=== PATIENT | female | born 1945 | race Caucasian/White ===

== ENCOUNTER → 2017-06-04 14:00 | Outpatient (CLI) | payer MEDICARE ==
[2016-06-06 05:26] VITALS: BMI 24.5
[~2017-06-04 14:00] MED LIST: ANTIVERT25 MG PO; ASPIRIN EC81 M1 PO; CRANBERRY475 MG PO; DESERYL100 MG PO; LEXAPRO10 MG PO; LEXAPRO20 MG PO; LYRICA100 MG PO; MIRAPEX0.5 MG PO; MULTIPLE VITAMI1 TA1 PO; PLAVIX75 MG PO; POTASSIUM99 M1 PO; RESTORIL15 MG PO; ULTRAM50 MG PO; ZESTORETIC 10/11 TAB PO
== END | disposition home or self-care (01) ==
LOC: D.MRI 14:00
DX: M54.41 Lumbago with sciatica, right side (principal)

== ENCOUNTER → 2017-10-29 13:45 | Outpatient (CLI) | payer MEDICARE ==
[2016-06-06 05:26] VITALS: BMI 24.5
== END | disposition home or self-care (01) ==
LOC: D.MAMMO 09:15
DX: Z12.31 Encounter for screening mammogram for malignant neoplasm of breast (principal)

== ENCOUNTER → 2018-12-06 15:36 | Outpatient (CLI) | payer MEDICARE ==
[2016-06-06 05:26] VITALS: BMI 24.5
== END | disposition home or self-care (01) ==
LOC: D.CT 12-05 08:00
DX: R91.8 Other nonspecific abnormal finding of lung field (principal)

== ENCOUNTER → 2019-02-05 08:54 | Outpatient (CLI) | payer MEDICARE ==
[2016-06-06 05:26] VITALS: BMI 24.5
== END | disposition home or self-care (01) ==
LOC: D.HCCARDIO 08:54
PROVIDERS: ATTEND Internal Medicine Cardiovascular Disease
DX: I20.9 Angina pectoris, unspecified (principal)

== ENCOUNTER → 2019-02-13 06:34 | Outpatient (CLI) | payer MEDICARE ==
[~2019-02-13] VITALS: Ht 172.7 cm; Wt 84.1 kg
--- NOTE | ~2019-02-13 | HEMODYNAMI ---
PATIENT:JOSE NEGRO MEDICAL RECORD: [id number] : 47 LOCATION:[facility] ADMISSION DATE: 02/13/19 Generatedon:02/13/20199:25 Patient name: JOSE NEGRO Patient #: [id number] SSN: : 1945 Date of study: 02/13/2019 Page: Of Hemodynamic Procedure Report Patient Data Patient Demographics Procedure consent was obtained First Name: JOSE Gender: Female Last Name: MARKY : 1945 [facility] Initial: KEHINDE Age: 73 year(s) Patient #: [id number] Race: Unknown Additional ID: [id number] Contact details Address: [address] [place] [address] State: [place] City: [place] Zip code: [address] Past Medical History Allergies: No known allergies Admission Admission Data Admission Date: 02/13/2019 Admission Time: 6:34 Procedure Procedure Types Cath Procedure Diagnostic Procedure LHC LHC w/Coronaries Sedation Charges Moderate Sedation up to 15 minutes Peripheral Cath Diagnostic Procedure Abd/Extremity Aortagram Extremities Right Lower Ext Arterio Procedure Description Procedure Date Procedure Date: 02/13/2019 Procedure Start Time: 8:54 Procedure End Time: 9:25 Procedure Staff Name Function Favian Santoro MD Performing Physician Bridgett Mena RT Monitor Qiana Lawson RN Nurse Pennie Rivera RT Scrub Procedure Data Cath Procedure Fluoroscopy Diagnostic fluoroscopy Total fluoroscopy Time: 5.1 time: 5.1 min min Diagnostic fluoroscopy Total fluoroscopy dose: 666 dose: 666 mGy mGy Contrast Material Contrast Material Type Amount (ml) Isovue 300 70 Entry Location Entry Primary Successful Side Size Upsize Upsize Entry Closure Zambrano ccessful Closure Location (Fr) 1 (Fr) 2 (Fr) Remarks Device Remarks Femoral Right 5 Fr Manual vein Compression Femoral Right 5 Fr Exoseal artery Estimated blood loss: 5 ml Diagnostic catheters Device Type Used For End Catheter Placement MULTIPACK JL 4.0 5Fr Left Coronary catheter Angiography MULTIPACK 3DRC 5Fr Right Coronary catheter Angiography MULTIPACK Pigtail 5 Fr LV Angiography catheter MULTIPACK Pigtail 5 Fr Abdominal catheter aortogram Procedure Complications No complications Procedure Medications Medication Administration Route Dosage Oxygen etCO2 Nasal cannula 2 l/min Lidocaine 2% added to field 20 Heparin Flush Bag added to field 2 bags (1000units/500ml NS) 0.9% NaCl I.V. 100 ml/hr Versed I.V. 1 mg Fentanyl I.V. 50 mcg 0.9% NaCl I.V. bolus 250 ml 0.9% NaCl I.V. bolus 250 ml Hemodynamics Rest Heart Rate: 60 (bpm) Pressure Samples Time Site Value (mmHg) Purpose Heart Use Rate(bpm) 9:13 LV 81/7,16 EDP 69 Gradients Valve Time Site Site Mean SEP/DFP Peak To Heart Use 1 2 (mmHg) (sec/min) Peak Rate (mmHg) (bpm) Aortic 9:13 LV AO 59 Snapshots Pre Cath Intra NCS Post Cath Vital Signs Time Heart Resp SPO2 etCO2 NIBP Rhythm Pain Sedation Rate (ipm) (%) (mmHg) (mmHg) Status Level (bpm) 8:45:48 66 18 98 36.1 107/61(87) NSR 0 (11) 10(A) , No pain 8:49:58 60 16 95 26.3 92/48(64) NSR 0 (11) 10(A) , No pain 8:54:03 57 14 94 33.1 79/46(56) NSR 0 (11) 10(A) , No pain 8:58:05 55 14 94 27.1 70/35(57) NSR 0 (11) 9(A) , No pain 9:02:03 57 14 96 18.8 75/42(53) NSR 0 (11) 9(A) , No pain 9:06:02 55 14 98 19.6 82/44(65) NSR 0 (11) 9(A) , No pain 9:10:04 56 13 97 19.5 80/44(59) NSR 0 (11) 9(A) , No pain 9:14:06 57 14 94 30.1 79/39(57) NSR 0 (11) 9(A) , No pain 9:18:07 58 13 95 30.1 76/40(54) NSR 0 (11) 10(A) , No pain 9:22:05 60 14 95 30.8 80/48(66) NSR 0 (11) 10(A) , No pain Medications Time Medication Route Dose Verified Delivered Reason Notes Eff ectiveness by by 8:45:33 Oxygen etCO2 2 Favian Buffie used for Nasal l/min Yvan Lawson RN procedure cannula 8:45:39 Lidocaine 2% added 20ml Favian Favian for local to vial Yvan Santoro MD anesthetic field 8:45:45 Heparin Flush added 2 Favian Favian used for Bag to bags Yvan Santoro MD procedure (1000units/500ml field NS) 8:45:55 0.9% NaCl I.V. 100 Favian Buffie Per ml/hr Yvan Lawson RN physician 8:50:07 0.9% NaCl I.V. 250 Favian Buffie For bolus ml Yvan Lawson RN hypotension 8:51:55 Versed I.V. 1 mg Favian Buffie for Yvan Lawson RN sedation 8:52:01 Fentanyl I.V. 50 Favian Buffie for mcg Yvan Lawson RN sedation 9:10:18 0.9% NaCl I.V. 250 Favian Buffie For bolus ml Yvan Lawson RN hypotension Procedure Log Time Note 8:03:33 Time tracking: Regular hours (M-F 7:00 - 5:00) 8:03:41 Plan of Care:Hemodynamics will remain stable., Cardiac rhythm will remain stable., Comfort level will be maintained., Respiratory function will remain adequate., Patient/ family verbilizes understanding of procedure., Procedure tolerated without complication., Recovers from procedure without complications.. 8:27:30 Qiana Lawson RN sent for patient. Start room use. 8:33:51 Patient received from Pre/Post Procedure Room to CCL 2 Alert and oriented. Tansferred to table in Supine position. 8:33:52 Warm blankets applied, and pieter hugger turned on for patient comfort. 8:33:53 Correct patient and procedure confirmed by team. 8:33:54 Signed procedure consent form obtained from patient. 8:33:54 ECG and BP/O2 sat monitors applied to patient. 8:33:55 Full Disclosure recording started 8:40:26 Vital chart was started 8:40:29 Rhythm: sinus rhythm 8:40:43 H&P Date Dictated: 01/29/2019 Within 30 days and on chart., H&P Addendum completed by physician on day of procedure. (MUST COMPLETE FOR ALL OUTPATIENTS). 8:40:45 Pre-procedure instructions explained to patient. 8:40:45 Pre-op teaching completed and patient verbalized understanding. 8:40:48 Family in patients room. 8:40:49 Patient NPO since Midnight. 8:40:55 Patient allergic to No known allergies 8:40:57 Is the patient allergic to Iodine/contrast media? No. 8:40:58 Is patient on blood thinner?Yes 8:41:01 ACC The patient was administered the following blood thiners within the last 24 hours: ACCPlavix 8:41:03 Patient diabetic? No. 8:41:10 Previous problem with sedation/anesthesia? No ? 8:41:11 Snore? Yes 8:41:13 Sleep apnea? No 8:41:14 Deviated septum? No 8:41:14 Opens mouth fully? Yes 8:41:15 Sticks out tongue? Yes 8:41:19 Airway obstruction? Yes COPD 8:41:22 Dentures? Yes OUT 8:41:33 Pre procedure: right dorsailis pedis pulse 1+ Palpable, but thready & weak; easily obliterated 8:41:46 Pre procedure: right radial pulse 1+ Palpable, but thready & weak; easily obliterated 8:41:53 Patient pain scale 0/10 ?. 8:41:58 IV patent on arrival in left forearm with 0.9% NaCl at KVO. 8:42:00 Lab results completed and on chart. 8:42:03 Right groin area was prepped with chlora-prep and draped in sterile fashion 8:42:04 Alarms reviewed by R. N. 8:42:04 Sharps counted by scrub and verified by R.N. 8:42:09 Use device set Femoral Dx 8:42:10 ACIST Syringe (28911) opened to sterile field. 8:42:11 Bag Decanter () opened to sterile field. 8:42:11 Medline Cath Pack ([id number]) opened to sterile field. 8:42:12 DIAGNOSTIC WIRE .035 260cm J wire ([id number]) opened to sterile field. 8:42:13 ACIST Hand Control (59831) opened to sterile field. 8:42:13 ACIST Manifold (28963) opened to sterile field. 8:42:14 DIAGNOSTIC Multipack 5Fr catheter set ([id number]) opened to sterile field. 8:42:15 Tegaderm 4 x 4 (1626W) opened to sterile field. 8:42:16 SHEATH 5FR [place] ([id number]) opened to sterile field. 8:44:02 Baseline sample Acquired. 8:45:33 Oxygen 2 l/min etCO2 Nasal cannula was administered by Qiana Lawson RN; used for procedure; 8:45:39 Lidocaine 2% 20ml vial added to field was administered by Favian Santoro MD; for local anesthetic; 8:45:45 Heparin Flush Bag (1000units/500ml NS) 2 bags added to field was administered by Favian Santoro MD; used for procedure; 8:45:55 0.9% NaCl 100 ml/hr I.V. was administered by Qiana Lawson RN; Per physician; 8:49:28 Final Timeout: patient, procedure, and site verified with staff and physician. All members of the team are in agreement. 8:49:30 Right groin site verified by team. 8:49:33 Maximum allowable Isovue 300 dose 300ml. Physician notified. (300ml for normal creatinines. For patients with creatinine of 1.7 or higher multiply weight(kg) x 5 divided by creatinine.) 8:49:38 Fire Safety Assessment: A--An alcohol-based skin anteseptic being used preoperatively., C--Open oxygen or nitrous oxide is being used., D--An ESU, laser, or fiber-optic light is being used. 8:49:42 Physical assessment completed. ASA score P 2 - A patient with mild systemic disease as per Favian Santoro MD. 8:49:46 Sedation plan: IV Moderate Sedation Medication:Versed, Fentanyl 8:50:07 0.9% NaCl 250 ml I.V. bolus was administered by Qiana Lawson RN; For hypotension; 8:51:13 Zero performed for pressure channel P1 8:51:55 Versed 1 mg I.V. was administered by Qiana Lawson RN; for sedation; 8:52:01 Fentanyl 50 mcg I.V. was administered by Qiana Lawson RN; for sedation; 8:54:21 Procedure started. 8:54:24 Local anesthetic to right femoral artery with Lidocaine 2% by Favian Santoro MD.INITIAL ACCESS ONLY 8:58:18 A 5 Fr sheath was inserted into the Right Femoral vein 9:03:54 MICROPUNCTURE 4FR Cook ([id number]) opened to sterile field. 9:05:33 Left groin area was prepped with chlora-prep and draped in sterile fashion 9:06:21 Access obtained with 4Fr micropunture. 9:06:52 A 5 Fr sheath was inserted into the Right Femoral artery 9:07:38 A MULTIPACK JL 4.0 5Fr catheter was advanced over the wire and used for Left Coronary Angiography. 9:09:48 Catheter removed. 9:09:59 A MULTIPACK 3DRC 5Fr catheter was advanced over the wire and used for Right Coronary Angiography. 9:10:18 0.9% NaCl 250 ml I.V. bolus was administered by Qiana Lawson RN; For hypotension; 9:11:32 Catheter removed. 9:11:52 A MULTIPACK Pigtail 5 Fr catheter was advanced over the wire and used for LV Angiography. 9:13:08 LV gram done using MCGARRY 9:13:14 Injector settings: Ml/sec: 10, Volume: 20, 9:13:16 LV hemodynamics recorded. 9:13:23 EF : 55 % 9:13:54 A MULTIPACK Pigtail 5 Fr catheter was advanced over the wire and used for Abdominal aortogram. 9:18:03 Catheter removed. 9:18:19 Sheath removed intact; hemostasis achieved with Exoseal to the Right Femoral artery. 9:18:27 Sheath removed intact; hemostasis achieved with Manual Compression to the Right Femoral vein. 9:18:31 Procedure ended.(Physican Out) 9:18:45 Fluoroscopy time 05.10 minutes. 9:18:48 Fluoroscopy dose: 666 mGy 9:18:48 Flurop Dose total: 666 9:18:58 Contrast amount:Isovue 300 70ml. 9:19:00 Sharps counted by scrub and verified by R.N. 9:19:01 Insertion/operative site no bleeding no hematoma. 9:19:05 Post-op/insertion site Right Femoral artery dressed using a 4 x 4 and Tegaderm. 9:19:08 Post right femoral artery:stable, clean and dry 9:19:09 Post Procedure Pulses reassessed and unchanged 9:19:16 Post-procedure physical assessment completed. ASA score P 2 - A patient with mild systemic disease as per Favian Santoro MD. 9:19:18 Post procedure rhythm: unchanged. 9:19:21 Estimated blood loss: 5 ml 9:19:23 Post procedure instruction explained to patient.Patient verbalizes understanding. 9:19:23 Patient needs reinforcement of post procedure teaching. 9:19:54 Procedure type changed to Cath procedure, Diagnostic procedure, LHC, LHC w/Coronaries, Sedation Charges, Moderate Sedation up to 15 minutes, Peripheral Cath Diagnostic Procedure, Abd/Extremity, Aortagram, Extremities, Right Lower Ext Arterio 9:20:08 Procedure Complication : No complications 9:20:16 See physician's report for complete and final results. 9:20:40 EXOSEAL 5Fr (EX500) opened to sterile field. 9:22:48 Procedure and supply charges have been captured, reviewed, submitted and are correct. 9:24:59 Vital chart was stopped 9:25:01 Report given to Pre/Post Procedure Room. 9:25:03 Patient transfered to Pre/Post Procedure Room with Stretcher. 9:25:10 Procedure ended. 9:25:10 Full Disclosure recording stopped 9:25:14 End room use (Document Last) Device Usage Item Name Manufacture Quantity Catalog Hospital Part Current Minimal Lot# / Number Charge Number Stock Stock Serial# Code ACIST Syringe Acist 1 [id number] [id number] 228491 [id number] 20 (76814) Medical Systems Inc Bag Decanter Microtek 1 2001S 653602 03877 404880 5 () Medical Inc. Medline Cath Medline 1 [id number] 278206 68390 744963 5 Pack ([id number]) DIAGNOSTIC St Ashish 1 696408 171462 250785 258636 30 WIRE .035 260cm J wire (358515) ACIST Hand Acist 1 83115 055009 333679 448625 5 Control Medical (14432) Systems Inc ACIST Acist 1 89141 042829 090844 099662 5 Manifold Medical (87954) Systems Inc DIAGNOSTIC Cardinal 1 [id number] 939689 40228 058323 30 Multipack 5Fr Health catheter set (DR3574) Tegaderm 4 x 3M 1 1626W 258380 839606 899674 5 4 (1626W) SHEATH 5FR Terumo 1 [id number] 339692 823380 498658 5 [place] (WGB891) MICROPUNCTURE [facility] 1 [id number] 714146 802760 151194 5 4FR Cook (P75339) MULTIPACK JL Cardinal 1 664438 5 4.0 5Fr Health catheter MULTIPACK Cardinal 1 897648 5 3DRC 5Fr Health catheter MULTIPACK Cardinal 1 908508 5 Pigtail 5 Fr Health catheter EXOSEAL 5Fr Cardinal 1 EX500 616575 855273 153426 10 (EX500) Health Signature Audit Ariel Stage Time Signature Unsigned Intra-Procedure 02/13/2019 Bridgett 9:25:27 AM Counts RT(R) Signatures Monitor : Bridgett Signature : Counts RT Date : Time : [place] [id number] [place] [address]
[~2019-02-13 06:34] MED LIST changes: +BACLOFEN10 MG PO; +BREO ELLIPTA 21 EACH; +FUROSEMIDE20 MG PO
[2019-02-13 07:26] VITALS: BP 103/59; Ht 172.7 cm; Wt 84.1 kg
[2019-02-13 07:41] LABS: BASOPHILS 0.2 % (0-2); EOSINOPHILS 2.3 % (0-7); HEMATOCRIT 40.5 % (36.0-48.0); HEMOGLOBIN 12.9 g/dL (12-16); IMMATURE GRANULOCYTES 0.6 % (0-5); LYMPHOCYTES 13.4 % (15-50); MCH 28.4 pg (26.0-34.0); MCHC 31.9 g/dL (31.0-37.0); MEAN PLATELET VOLUME 10.2 fL (7.4-10.4); MONOCYTES 5.2 % (2-11); NEUTROPHILS 78.3 % (40-80); PLATELET COUNT 206 10x3/uL (130-400); RBC 4.55 10x6/uL (4.00-5.40); RDW 16.9 % (11.5-14.5); WBC 6.5 10x3/uL (4.8-10.8)
[2019-02-13 07:55] LABS: ANION GAP 13.7 mmol/L (8-16); CALCIUM 9.1 mg/dL (8.5-10.1); CARBON DIOXIDE 28.1 mmol/L (21.0-32.0); CREATININE - SERUM 1.3 mg/dL (0.6-1.3); POTASSIUM - SERUM 3.8 mmol/L (3.5-5.1)
--- NOTE | 2019-02-13 09:42 | NUR ---
0930 RECIEVED TO ROOM VIA STRETCHER FROM INSPECTOR E[employer] WITH 5 FR EXOSEAL R/GROIN CDI. PATIENT CONNECTED TO MONITOR FOR OBSERVATION WITH HR 61 BP 93/45 FLUIDS OPENED TO GRAVITY 0945 R/GROIN REMAINS CDI WITH NO BLEEDING OR HEMATOMA NOTED. PATIENT RESTIGN QUIETLY NO DISTRESS NOTED.
--- NOTE | 2019-02-13 10:04 | NUR ---
PATIENT RESPONDS TO VERBAL WITH CHEST PAIN DENIED. BP 102/52 HR 55 O2 AT 2 LITERS NASAL. INSTRUCTED PATIENT TO KEEP HEAD FLAT ON PILLOW WITH RLE STRIAGHT.
--- NOTE | 2019-02-13 10:20 | NUR ---
PATIENT RESTING QUIETLY WITH NO DISTRESS. 5 FR EXOSEAL R/GROIN IS CDI WITH VSS. CALL LIGHT IS IN REACH WITH DAUGHTER AT BEDSIDE
--- NOTE | 2019-02-13 10:34 | NUR ---
5 FR EXOSEAL R/GROIN IS CDI WITH NO BLEEDING OR HEMATOMA NOTED. PATIENT TOLERATING PO FLUIDS WITH NAUSEA DENIED. CALL LIGHT IS IN REACH WILL MONITOR
--- NOTE | 2019-02-13 10:50 | NUR ---
PATIENT CONTINUES TO REST WITH NO DISTRESS NOTED. 5 FR EXOSEAL TO R/GROIN IS CDI WITH AREA SOFT TO TOUCH
--- NOTE | 2019-02-13 11:18 | NUR ---
REPOSITIONED TO [facility] UP 20 FOR COMFORT. R/GROIN REMAINS CDI WITH NO BLEEDING NOTED.
--- NOTE | 2019-02-13 11:39 | NUR ---
HOB UP 30 WITH R/GROIN CDI NO BLEEDING OR HEMATOMA. PATIENT DROWSY BUT ORIENTED X 3 TOLERATING SANDWICH WITH NAUSEA DENIED
--- NOTE | 2019-02-13 12:06 | NUR ---
PIV REMOVED WITH DRESSING APPLIED. VERBAL AND WRITTEN DISCHARGE GONE OVER WITH PATIENT AND FAMILY. PATIENT DENIED PAIN OR NEEDS.UP TO GET DRESSED FOR DISCHARGE HOME
--- NOTE | 2019-02-13 12:08 | NUR ---
PATIENT LEFT VIA WC TO PARKING FOR TRANSPORT HOME NO DISTRESS NOTED.
== END | disposition home or self-care (01) ==
LOC: D.CATH 06:34
PROVIDERS: ATTEND Internal Medicine Cardiovascular Disease
DX: I25.119 Atherosclerotic heart disease of native coronary artery with unspecified angina pectoris (principal); J44.9 Chronic obstructive pulmonary disease, unspecified; Z01.812 Encounter for preprocedural laboratory examination

== ENCOUNTER 2019-02-20 12:58 | Inpatient (IN) | payer MEDICARE ==
[~2019-02-20] VITALS: Ht 172.7 cm; Wt 86.9 kg
--- NOTE | ~2019-02-20 | HEMODYNAMI ---
PATIENT:JOSE NEGRO MEDICAL RECORD: [id number] : 47 LOCATION:[facility] D.2118 ADMISSION DATE: 02/20/19 Generatedon:02/21/201914:39 Patient name: JOSE NEGRO Patient #: [id number] SSN: : 1945 Date of study: 02/21/2019 Page: Of Hemodynamic Procedure Report Patient Data Patient Demographics Procedure consent was obtained First Name: JOSE Gender: Female Last Name: MARKY : 1945 [facility] Initial: KEHINDE Age: 73 year(s) Patient #: [id number] Race: Unknown Additional ID: [id number] Contact details Address: [address] [place] [address] State: [place] City: [place] Zip code: [address] Past Medical History Allergies: No known allergies Admission Admission Data Admission Date: 02/20/2019 Admission Time: 12:58 Room #: D2118 Procedure Procedure Types Cath Procedure Diagnostic Procedure LHC LH w/Coronaries PCI Procedure Coronary Stent Coronary Stent Initial Procedure Description Procedure Date Procedure Date: 02/21/2019 Procedure Start Time: 14:07 Procedure End Time: 14:29 Procedure Staff Name Function Favian Santoro MD Performing Physician Joe Dey RT Monitor Andrei Armenta RN Nurse Quita Jeffries RT Scrub Procedure Data Cath Procedure Fluoroscopy Diagnostic fluoroscopy Total fluoroscopy Time: 5.3 time: 5.3 min min Diagnostic fluoroscopy Total fluoroscopy dose: 391 dose: 391 mGy mGy Contrast Material Contrast Material Type Amount (ml) Isovue 300 68 Entry Location Entry Primary Successful Side Size Upsize Upsize Entry Closure Succes sful Closure Location (Fr) 1 (Fr) 2 (Fr) Remarks Device Remarks Femoral Right 6 Fr Exoseal artery Short Estimated blood loss: 10 ml Procedure Complications No complications Procedure Medications Medication Administration Route Dosage Oxygen etCO2 Nasal cannula 2 l/min Heparin Flush Bag added to field 2 bags (1000units/500ml NS) 0.9% NaCl I.V. 100 ml/hr Lidocaine 2% added to field 20 Fentanyl I.V. 50 mcg Versed I.V. 1 mg Fentanyl I.V. 50 mcg Versed I.V. 1 mg Heparin Bolus I.V. 8500 units Nitroglycerin IC/IA I.C. 100 mcg Hemodynamics Rest Heart Rate: 75 (bpm) Pressure Samples Time Site Value (mmHg) Purpose Heart Use Rate(bpm) 14:11 AO 118/34(62) Snapshot 73 14:15 AO 88/45(63) Snapshot 75 14:23 AO 104/52(73) Snapshot 75 Snapshots Pre Cath Intra NCS Post Cath Vital Signs Time Heart Resp SPO2 etCO2 NIBP Rhythm Pain Sedation Rate (ipm) (%) (mmHg) (mmHg) Status Level (bpm) 13:55:48 75 16 95 0 139/65(91) NSR 0 (11) 10(A) , No pain 14:00:08 71 17 95 0 104/58(76) NSR 0 (11) 10(A) , No pain 14:04:22 70 16 94 0 95/64(82) NSR 0 (11) 9(A) , No pain 14:08:34 71 17 93 0 99/59(82) NSR 0 (11) 9(A) , No pain 14:12:48 72 17 94 0 96/52(68) NSR 0 (11) 9(A) , No pain 14:17:00 73 17 94 0 74/50(68) NSR 0 (11) 9(A) , No pain 14:21:55 72 16 95 0 96/51(76) NSR 0 (11) 9(A) , No pain 14:26:09 77 16 94 0 80/45(60) NSR 0 (11) 9(A) , No pain 14:30:18 78 16 95 0 99/58(78) NSR 0 (11) 9(A) , No pain Medications Time Medication Route Dose Verified Delivered Reason Notes Effectiveness by by 13:53:29 Oxygen etCO2 2 Favian Forbes Per physician Nasal l/min Yvan Armenta RN cannula 13:53:38 Heparin Flush added 2 Favian Forbes used for Bag to bags Yvan Armenta psychic reader (1000units/500ml field NS) 13:53:51 0.9% NaCl I.V. 100 Favian Andrei Per physician ml/hr Yvan Armenta RN 13:54:06 Lidocaine 2% added 20ml Favian Andrei used for to vial Yvan Armenta RN procedure field 14:01:34 Fentanyl I.V. 50 Favian Andrei for sedation mcg Yvan Armenta RN 14:01:40 Versed I.V. 1 mg Favian Andrei for sedation Yvan Armenta RN 14:06:22 Fentanyl I.V. 50 Favian Andrei for sedation mcg Yvan Armenta RN 14:06:25 Versed I.V. 1 mg Favian Andrei for sedation Yvan Armenta RN 14:11:55 Heparin Bolus I.V. 8500 Favian Andrei for units Yvan Armenta RN anticoagulation 14:25:12 Nitroglycerin I.C. 100 Favian Favian for IC/IA mcg Yvan Santoro MD vasodilation Procedure Log Time Note 13:30:56 Joe Dey RT(R) sent for patient. Start room use. 13:43:57 Time tracking: Regular hours (M-F 7:00 - 5:00) 13:44:01 Plan of Care:Hemodynamics will remain stable., Cardiac rhythm will remain stable., Comfort level will be maintained., Respiratory function will remain adequate., Patient/ family verbilizes understanding of procedure., Procedure tolerated without complication., Recovers from procedure without complications.. 13:49:37 Patient received from PCU to CCL 3 Alert and oriented. Tansferred to table in Supine position. 13:49:39 Correct patient and procedure confirmed by team. 13:49:39 Warm blankets applied, and pieter hugger turned on for patient comfort. 13:49:41 Signed procedure consent form obtained from patient. 13:49:44 ECG and BP/O2 sat monitors applied to patient. 13:50:39 Vital chart was started 13:53:29 Oxygen 2 l/min etCO2 Nasal cannula was administered by Andrei Armenta RN; Per physician; 13:53:38 Heparin Flush Bag (1000units/500ml NS) 2 bags added to field was administered by Andrei Armenta RN; used for procedure; 13:53:51 0.9% NaCl 100 ml/hr I.V. was administered by Andrei Armenta RN; Per physician; 13:54:06 Lidocaine 2% 20ml vial added to field was administered by Andrei Armenta RN; used for procedure; 13:57:06 Baseline sample Acquired. 13:57:09 Rhythm: sinus rhythm 13:57:11 Full Disclosure recording started 13:57:41 H&P Date Dictated: 02/20/2019 Within 30 days and on chart.. 13:57:42 Pre-procedure instructions explained to patient. 13:57:43 Pre-op teaching completed and patient verbalized understanding. 13:57:45 Family in patients room. 13:57:46 Patient NPO since Midnight. 13:57:48 Is the patient allergic to Iodine/contrast media? No. 13:57:49 Is patient on blood thinner?Yes 13:57:52 ACC The patient was administered the following blood thiners within the last 24 hours: ACCPlavix 13:59:36 Patient diabetic? No. 13:59:38 Previous problem with sedation/anesthesia? No ? 13:59:39 Snore? Yes 13:59:41 Sleep apnea? No 13:59:41 Deviated septum? No 13:59:42 Opens mouth fully? Yes 13:59:44 Sticks out tongue? Yes 13:59:47 Airway obstruction? Yes COPD 14:00:08 Dentures? No IN 14:00:24 Pre procedure: right dorsailis pedis pulse 1+ Palpable, but thready & weak; easily obliterated 14:00:30 Patient pain scale 0/10 ?. 14:00:44 IV patent on arrival in left forearm with 0.9% NaCl at O. 14:00:46 Lab results completed and on chart. 14:00:49 Right groin area was prepped with chlora-prep and draped in sterile fashion 14:00:51 Alarms reviewed by R. N. 14:00:51 Sharps counted by scrub and verified by R.N. 14:00:53 --------ALL STOP TIME OUT------ 14:00:53 Final Timeout: patient, procedure, and site verified with staff and physician. All members of the team are in agreement. 14:00:55 Right groin site verified by team. 14:00:59 Maximum allowable Isovue 300 dose 300ml. Physician notified. (300ml for normal creatinines. For patients with creatinine of 1.7 or higher multiply weight(kg) x 5 divided by creatinine.) 14:01:02 Fire Safety Assessment: A--An alcohol-based skin anteseptic being used preoperatively., C--Open oxygen or nitrous oxide is being used., D--An ESU, laser, or fiber-optic light is being used. 14:01:06 Physical assessment completed. ASA score P 2 - A patient with mild systemic disease as per Favian Santoro MD. 14:01:09 Sedation plan: IV Moderate Sedation Medication:Versed, Fentanyl 14:01:34 Fentanyl 50 mcg I.V. was administered by Andrei Armenta RN; for sedation; 14:01:40 Versed 1 mg I.V. was administered by Andrei Armenta RN; for sedation; 14:02:03 Use device set Radial Dx or PCI 14:02:05 Use device set SANTORO PCI 14:02:12 ACIST Syringe (71470) opened to sterile field. 14:02:13 Medline Cath Pack ([id number]) opened to sterile field. 14:02:14 Bag Decanter (2002S) opened to sterile field. 14:02:15 ACIST Hand Control (92832) opened to sterile field. 14:02:16 ACIST Manifold (60030) opened to sterile field. 14:02:16 Tegaderm 4 x 4 (1626W) opened to sterile field. 14:02:18 DIAGNOSTIC WIRE .035 260cm J wire (345153) opened to sterile field. 14:02:21 TUBING High Pressure Extension Tubing (Yvan) (IL3457M) opened to sterile field. 14:02:23 INFLATOR Merit BasixCompak (JX6375) opened to sterile field. 14:02:32 WHISPER 300cm guide wire ([id number]) opened to sterile field. 14:02:34 SHEATH 6FR Rupert (NKP376) opened to sterile field. 14:03:01 GUIDE 6FR EBU 3.5 catheter ([id number]) opened to sterile field. 14:06:22 Fentanyl 50 mcg I.V. was administered by Andrei Armenta RN; for sedation; 14:06:25 Versed 1 mg I.V. was administered by Andrei Armenta RN; for sedation; 14:07:00 Procedure started. 14:07:03 Local anesthetic to right femoral artery with Lidocaine 2% by Favian Santoro MD.INITIAL ACCESS ONLY 14:09:34 A 6 Fr Short sheath was inserted into the Right Femoral artery 14:10:08 6 Fr EBU 3.5 guide catheter was inserted over the wire 14:11:50 Whisper wire advanced. 14:11:55 Heparin Bolus 8500 units I.V. was administered by Andrei Armenta RN; for anticoagulation; 14:15:17 Wire advanced across lesion. 14:16:40 Inflate balloon Inflation number: 1 A EUPHORA 2.0 x 15 Balloon ([id number]) was prepped and advanced across the Mid LAD, then inflated to 14 ARLEN for 0:10 (min:sec). 14:19:42 Balloon removed over the wire. 14:22:07 Place stent Inflation Number: 2 A MARYSE RX 3.0 x 15 stent ([id number]) was prepped and advanced across the Mid LAD. The stent was deployed at 14 ARLEN for 0:10 (min:sec). 14:23:32 Stent catheter was removed intact over wire. 14:25:12 Nitroglycerin IC/IA 100 mcg I.C. was administered by Favian Santoro MD; for vasodilation; 14:26:28 Wire removed. 14:26:29 Guide catheter removed. 14:26:32 EXOSEAL 6Fr (EX600) opened to sterile field. 14:26:54 Sheath removed intact; hemostasis achieved with Exoseal to the Right Femoral artery. 14:26:56 Procedure ended.(Physican Out) 14:27:11 Fluoroscopy time 05.30 minutes. 14:27:19 Flurop Dose total: 391 14:27:19 Fluoroscopy dose: 391 mGy 14:27:23 Contrast amount:Isovue 300 68ml. 14:27:25 Sharps counted by scrub and verified by R.N. 14:27:26 Insertion/operative site no bleeding no hematoma. 14:27:30 Post-op/insertion site Right Femoral artery dressed using a 4 x 4 and Tegaderm. 14:27:34 Post Procedure Pulses reassessed and unchanged 14:27:39 Post-procedure physical assessment completed. ASA score P 2 - A patient with mild systemic disease as per Favian Santoro MD. 14:27:42 Post procedure rhythm: unchanged. 14:27:45 Estimated blood loss: 10 ml 14:29:05 Post procedure instruction explained to patient.Patient verbalizes understanding. 14:29:05 Patient needs reinforcement of post procedure teaching. 14:29:11 Procedure type changed to Cath procedure, Diagnostic procedure, LHC, LHC w/Coronaries, PCI procedure, Coronary Stent, Coronary Stent Initial 14:29:12 Procedure and supply charges have been captured, reviewed, submitted and are correct. 14:29:15 Procedure Complication : No complications 14:29:18 Vital chart was stopped 14:29:19 See physician's report for complete and final results. 14:29:26 Report given to PCU. 14:29:29 Patient transfered to PCU with Bed. 14:29:31 Procedure ended. 14:29:31 Full Disclosure recording stopped 14:30:44 End room use (Document Last) 14:38:14 Pt began to develop hematoma right groin. Femstop applied at 140. 14:38:16 FEMSTOP Gold (H64299) opened to sterile field. Intervention Summary Intervention Notes Time ActionType Lesion and Equipment Used Action# Pressure Duration Attributes 14:16:40 Inflate Mid LAD EUPHORA 2.0 x 1 14 00:10 balloon 15 Balloon ([id number]) 14:22:07 Place stent Mid LAD MARYSE RX 3.0 x 2 14 00:10 15 stent ([id number]) Device Usage Item Name Manufacture Quantity Catalog Hospital Part [facility] Lot# / Number Charge Number Stock Stock Serial# Code ACIST Syringe Acist 1 27906 183895 678880 143917 20 (29534) Medical Systems Inc Medline Cath Medline 1 [id number] 243930 23940 532161 5 Pack ([id number]) Bag Decanter Microtek 1 2001S 543946 95792 343999 5 (2001S) Medical Inc. ACIST Hand Acist 1 08678 756657 168012 171579 5 Control Medical (15064) Systems Inc ACIST Manifold Acist 1 16763 178992 881837 120773 5 (68421) Medical Systems Inc Tegaderm 4 x 4 3M 1 1626W 774270 208958 834476 5 (1626W) DIAGNOSTIC St Ashish 1 091385 038831 592030 332690 30 WIRE .035 260cm J wire (649069) TUBING High Merit 1 [id number] 464796 92581 475107 10 Pressure Medical Extension Tubing (Santoro) (TF6830L) INFLATOR Merit Merit 1 YC0022 737413 927806 639950 15 BasixCompak Medical (QO7017) WHISPER 300cm Miller 1 [id number] 060541 531954 666685 5 guide wire Vascular ([id number]) SHEATH 6FR Terumo 1 THP376 257995 427662 066271 40 Rupert (SHV460) EUPHORA 2.0 x Medtronic 1 [id number] 323036 028896 214590 5 [id number] 15 Balloon ([id number]) MARYSE RX 3.0 x Medtronic 1 [id number] 095213 4403629 751409 5 [id number] 15 stent ([id number]) EXOSEAL 6Fr Cardinal 1 EX600 212751 859991 013187 10 (EX600) Health GUIDE 6FR EBU Medtronic 1 [id number] 916822 21196 600694 3 3.5 catheter ([id number]) FEMSTOP Gold St Ashish 1 K51572 972634 792590 492695 5 ([id number]) Signature Audit [place] Stage Time Signature Unsigned Intra-Procedure 02/21/2019 Joe Dey 2:39:06 PM RT(R) Signatures Monitor : Joe Dey RT Signature : Date : Time : [facility] [address] [place] [address]
--- NOTE | 2019-02-20 13:41 | NUR ---
RECEIVED PT FROM ADMISSIONS TO ROOM 2118 VIA W/C WITH ADMISSION STAFF AAOX4 RESP UNLABORED DENIES ANY DISCOMFORT AT THIS TIME WILL CONTINUE TO MONITOR
[2019-02-20 14:30] VITALS: BMI 27.4
[2019-02-20 16:09] LABS: BASOPHILS 0.2 % (0-2); EOSINOPHILS 2.6 % (0-7); HEMATOCRIT 37.6 % (36.0-48.0); HEMOGLOBIN 11.9 g/dL (12-16); IMMATURE GRANULOCYTES 0.4 % (0-5); LYMPHOCYTES 14.5 % (15-50); MCH 28.1 pg (26.0-34.0); MCHC 31.6 g/dL (31.0-37.0); MCV 88.9 fL (80.0-100.0); MEAN PLATELET VOLUME 10.3 fL (7.4-10.4); MONOCYTES 6.9 % (2-11); NEUTROPHILS 75.4 % (40-80); PLATELET COUNT 190 10x3/uL (130-400); RBC 4.23 10x6/uL (4.00-5.40); RDW 16.9 % (11.5-14.5); WBC 5.4 10x3/uL (4.8-10.8)
[2019-02-20 16:30] LABS: ANION GAP 12.8 mmol/L (8-16); CALCIUM 8.4 mg/dL (8.5-10.1); CARBON DIOXIDE 29.7 mmol/L (21.0-32.0); CREATININE - SERUM 1.7 mg/dL (0.6-1.3); POTASSIUM - SERUM 3.5 mmol/L (3.5-5.1)
[2019-02-20] MEDS ORDERED: MIRAPEX0.5 MG PO (17:28)
[2019-02-20] MEDS ORDERED: BAYER CHEWABLE81 MG PO (17:29)
[2019-02-20] MEDS ORDERED: HYDROCODON-ACE1 EAC7 PO (17:33)
[2019-02-20] MEDS ORDERED: VOLTAREN100 GM TOPICAL (17:33)
[2019-02-20 18:32] VITALS: BP 89/60
--- NOTE | 2019-02-20 19:30 | NUR ---
RESUMING PATIENT CARE. PATIENT IS ALERT AND ORIENTED, RESTING COMFORTABLY IN BED. RESPIRATIONS ARE EVEN AND UNLABORED. NO S/S OF DISTRESS. NO C/O PAIN. CALL LIGHT WITHIN REACH. WILL CPOC.
[2019-02-20 20:00] VITALS: BP 118/51; BP 131/60
[2019-02-21] VITALS: BP 103/50
--- NOTE | 2019-02-21 03:42 | NUR ---
PATIENT RESTING COMFORTABLY IN BED. RESPIRATIONS ARE EVEN AND UNLABORED. NO S/S OF DISTRESS. NO C/O PAIN. DENIES NEEDS. CALL LIGHT WITHIN REACH. WILL CPOC.
[2019-02-21 04:00] VITALS: BP 117/30
[2019-02-21 04:57] LABS: BASOPHILS 0.2 % (0-2); EOSINOPHILS 2.7 % (0-7); HEMATOCRIT 35.7 % (36.0-48.0); HEMOGLOBIN 11.2 g/dL (12-16); IMMATURE GRANULOCYTES 0.7 % (0-5); LYMPHOCYTES 16.2 % (15-50); MCH 27.9 pg (26.0-34.0); MCHC 31.4 g/dL (31.0-37.0); MCV 88.8 fL (80.0-100.0); MEAN PLATELET VOLUME 10.2 fL (7.4-10.4); MONOCYTES 6.1 % (2-11); NEUTROPHILS 74.1 % (40-80); PLATELET COUNT 176 10x3/uL (130-400); RBC 4.02 10x6/uL (4.00-5.40); WBC 5.6 10x3/uL (4.8-10.8)
[2019-02-21 05:06] LABS: BILIRUBIN - TOTAL 0.24 mg/dL (0.2-1.3); CALCIUM 8.4 mg/dL (8.5-10.1); CARBON DIOXIDE 25.3 mmol/L (21.0-32.0); CHOL - HDL RATIO 4.6 ratio (2.3-4.1); CREATININE - SERUM 1.4 mg/dL (0.6-1.3); LDL-HDL RATIO 2.8 ratio (1.5-3.5); POTASSIUM - SERUM 3.3 mmol/L (3.5-5.1); PROTEIN - SERUM 6.5 g/dL (6.4-8.2)
--- NOTE | 2019-02-21 07:30 | NUR ---
RECEIVED PT IN BED AAOX4 RESP UNLABORED SKIN W/D COLOR PALE DENIES ANY NEEDS AT THIS TIME
[2019-02-21 10:15] VITALS: BP 88/51
[2019-02-21 12:15] LABS: APPEARANCE CLEAR (CLEAR); BILIRUBIN NEGATIVE (NEGATIVE); COLOR YELLOW (YELLOW); GLUCOSE NEGATIVE (NEGATIVE); KETONE NEGATIVE (NEGATIVE); NITRITE NEGATIVE (NEGATIVE); PROTEIN NEGATIVE (NEGATIVE); UROBILINOGEN NORMAL (NORMAL)
--- NOTE | 2019-02-21 12:40 | NUR ---
PT TO GALLERY INTERN VIA BED
[2019-02-21 13:09] VITALS: Ht 172.7 cm; Wt 86.9 kg
--- NOTE | 2019-02-21 14:59 | NUR ---
RECEIVED PT BACK FROM VP OF TECHNOLOGY VIA BED AAOX4 RESP UNLABORED PPPX4 FEMSTOP INTACT TO RT GROIN VSS NAD NAD NOTED
--- NOTE | 2019-02-21 16:53 | NUR ---
REFUSED SCD'S AT THIS TIME. WILL WEAR LATER WHEN RECOVERED FROM HEART CATH
[2019-02-21 17:36] VITALS: BP 91/51
--- NOTE | 2019-02-21 20:43 | NUR ---
RESUMING PATIENT CARE. PATIENT ALERT AND ORIENTED. RESPIRATIONS ARE EVEN AND UNLABORED. NO S/S OF DISTRESS. NO C/O PAIN. DENIES NEEDS. CALL LIGHT WITHIN REACH. WILL CPOC.
[2019-02-21 20:56] VITALS: BP 123/60
--- NOTE | 2019-02-21 23:57 | NUR ---
PATIENT RESTING COMFORTABLY IN BED. RESPIRATIONS ARE EVEN AND UNLABORED. NO S/S OF DISTRESS. NO C/O PAIN. PATIENT GIVEN BED BATH. BED LINENS CHANGED. RIGHT GROIN SOFT, NO BLEEDING, BRUISING AROUND SITE OBSERVED. CALL LIGHT WITHIN REACH. WILL CPOC.
[2019-02-22 00:35] VITALS: BP 110/50
[2019-02-22 05:00] VITALS: BP 108/51
[2019-02-22 05:30] LABS: BASOPHILS 0.2 % (0-2); EOSINOPHILS 1.8 % (0-7); HEMATOCRIT 36.7 % (36.0-48.0); HEMOGLOBIN 11.3 g/dL (12-16); IMMATURE GRANULOCYTES 0.5 % (0-5); MCH 27.9 pg (26.0-34.0); MCHC 30.8 g/dL (31.0-37.0); MCV 90.6 fL (80.0-100.0); MEAN PLATELET VOLUME 10.3 fL (7.4-10.4); MONOCYTES 4.5 % (2-11); PLATELET COUNT 189 10x3/uL (130-400); RBC 4.05 10x6/uL (4.00-5.40); RDW 17.3 % (11.5-14.5); WBC 6.2 10x3/uL (4.8-10.8)
[2019-02-22 05:34] LABS: ALBUMIN 2.9 g/dL (3.4-5.0); ANION GAP 12.8 mmol/L (8-16); BILIRUBIN - TOTAL 0.18 mg/dL (0.2-1.3); CALCIUM 8.4 mg/dL (8.5-10.1); CARBON DIOXIDE 27.6 mmol/L (21.0-32.0); CREATININE - SERUM 1.1 mg/dL (0.6-1.3); POTASSIUM - SERUM 3.4 mmol/L (3.5-5.1); PROTEIN - SERUM 6.4 g/dL (6.4-8.2)
[2019-02-22 07:40] VITALS: BP 107/47
[2019-02-22 11:35] VITALS: BP 129/67
[2019-02-22] MEDS ORDERED: SYMBICORT 16010.2 GM INH (12:48)
--- NOTE | 2019-02-22 14:57 | NUR ---
IV AND TELEMETRY DCD. DC PLANS GIVEN. UNDERSTANDING VOICED. ESCORTED TO CAR BY W/C.
--- NOTE | 2019-02-24 09:14 | MORECARE ---
CASE MANAGEMENT DISCHARGE SUMMARY PATIENT: JOSE NEGRO UNIT: [id number] ADM DATE: 02/20/19 AGE: 73 : [birth year] SEX: F ROOM/BED: D.2118 AUTHOR: KRISTI LOVETT PHYSICIAN: REFERRING PHYSICIAN: REINA BARRAZA MD DATE OF SERVICE: 02/24/19 Discharge Plan Patient Name: JOSE NEGRO [facility] [facility] 1945 Planned Disposition: Home Anticipated Discharge Date: 02/22/19 Discharge Date: 02/22/2019 Expected LOS: 2 Initial Reviewer: [email or web address] Initial Review Date: 02/24/2019 Generated: 02/24/19 10:13 am Patient Name: JOSE NEGRO Page 19860 at 0914 All edits/amendments must be made on the electronic document DICTATION DATE: 02/24/19912 ICT SECURITY SPECIALIST: MANNY 02/24/19912 RPT#: [id number] DC DATE:02/22/19 STATUS: DIS IN [facility] [address] [place] [address] END OF REPORT
== END 2019-02-22 14:59 | disposition home or self-care (01) | DRG 247 ==
LOC: D.M2 12:58
PROVIDERS: Internal Medicine Cardiovascular Disease; ADMIT Family Medicine; ATTEND Family Medicine
PROC: 027034Z Dilation of Coronary Artery, One Artery with Drug-eluting Intraluminal Device, Percutaneous Approach (ICD-10-PCS; principal; 2019-02-21 14:00)
DX: I24.9 Acute ischemic heart disease, unspecified (principal); I25.110 Atherosclerotic heart disease of native coronary artery with unstable angina pectoris; I95.9 Hypotension, unspecified; I73.9 Peripheral vascular disease, unspecified; J43.9 Emphysema, unspecified; R91.1 Solitary pulmonary nodule; I10 Essential (primary) hypertension; E78.5 Hyperlipidemia, unspecified

== ENCOUNTER 2019-03-08 18:55 | Observation (INO) | payer MEDICARE, MEDICAID ==
[2019-03-08] VITALS (10 sets, daily range): BP systolic 77–106; BP diastolic 42–53
[~2019-03-08] VITALS: Ht 172.7 cm; Wt 85.9 kg
--- NOTE | ~2019-03-08 | HEMODYNAMI ---
PATIENT:JOSE NEGRO MEDICAL RECORD: [id number] : 47 LOCATION:[facility] ADMISSION DATE: 03/08/19 Generatedon:03/10/20199:04 Patient name: JOSE NEGRO Patient #: [id number] SSN: : 1945 Date of study: 03/10/2019 Page: Of Hemodynamic Procedure Report Patient Data Patient Demographics Procedure consent was obtained First Name: JOSE Gender: Female Last Name: MARKY : 1945 [facility] Initial: KEHINDE Age: 73 year(s) Patient #: [id number] Race: Unknown Additional ID: [id number] Contact details [address]: [address] [place] [address] State: [place] City: [place] Zip code: [address] Past Medical History Allergies: No known allergies Admission Admission Data Admission Date: 03/08/2019 Admission Time: 20:26 Room #: 2114 Procedure Procedure Types Cath Procedure PCI Procedure Coronary Stent Coronary Stent Initial x2 Procedure Description Procedure Date Procedure Date: 03/10/2019 Procedure Start Time: 8:39 Procedure End Time: 9:00 Procedure Staff Name Function Qiana Lawson RN Sales Officer Gen Conteh MD Performing Physician Nickie Nixon RT Scrub Pamela Bowne RN Nurse Bridgett Mena RT Monitor Procedure Data Cath Procedure Fluoroscopy Diagnostic fluoroscopy Total fluoroscopy Time: 7 time: 7 min min Diagnostic fluoroscopy Total fluoroscopy dose: 585 dose: 585 mGy mGy Contrast Material Contrast Material Type Amount (ml) Isovue 300 75 Entry Location Entry Primary Successful Side Size Upsize Upsize Entry Closure Succes sful Closure Location (Fr) 1 (Fr) 2 (Fr) Remarks Device Remarks Femoral Right 6 Fr Exoseal artery Short Estimated blood loss: 5 ml Procedure Complications No complications Procedure Medications Medication Administration Route Dosage 0.9% NaCl I.V. 100 ml/hr Oxygen etCO2 Nasal cannula 2 l/min Lidocaine 2% added to field 20 Heparin Flush Bag added to field 2 bags (1000units/500ml NS) Versed I.V. 2 mg Fentanyl I.V. 50 mcg Versed I.V. 1 mg Fentanyl I.V. 25 mcg Heparin Bolus I.V. 4000 units Versed I.V. 1 mg Fentanyl I.V. 25 mcg Hemodynamics Rest Heart Rate: 63 (bpm) Snapshots Pre Cath Intra NCS Post Cath Vital Signs Time Heart Resp SPO2 etCO2 NIBP (mmHg) Rhythm Pain Sedation Rate (ipm) (%) (mmHg) Status Level (bpm) 8:19:15 70 12 98 24 139/68(121) NSR 0 (11) 10(A) , No pain 8:23:33 66 13 96 17.2 127/75(107) NSR 0 (11) 10(A) , No pain 8:27:47 63 10 98 18 108/68(94) NSR 0 (11) 10(A) , No pain 8:31:59 62 13 98 26 101/59(82) NSR 0 (11) 10(A) , No pain 8:36:13 63 14 97 18 97/54(75) NSR 0 (11) 10(A) , No pain 8:40:25 62 12 98 27 98/57(73) NSR 0 (11) 10(A) , No pain 8:44:37 64 10 97 27 95/55(75) NSR 0 (11) 9(A) , No pain 8:48:47 66 21 97 28.5 97/59(74) NSR 0 (11) 9(A) , No pain 8:52:55 69 17 98 22.5 115/70(94) NSR 0 (11) 10(A) , No pain 8:57:07 71 17 98 7.5 135/76(118) NSR 0 (11) 10(A) , No pain Medications Time Medication Route Dose Verified Delivered Reason Notes Effectiveness by by 8:20:48 0.9% NaCl I.V. 100 Gen Pamela used for ml/hr Wero Bowen truck body builder 8:20:56 Oxygen etCO2 2 Gen Pamela used for Nasal l/min Wero Bowen procedure cannula RN 8:21:02 Lidocaine 2% added 20ml Gen Blevins for local to vial Wero Conteh MD anesthetic field 8:21:08 Heparin Flush added 2 Gen Gen used for Bag to bags Wero Conteh MD procedure (1000units/500ml field NS) 8:37:25 Versed I.V. 2 mg Gen Pamela for sedation Wero Bowen RN 8:37:41 Fentanyl I.V. 50 Gen Pamela for sedation mcg Wero Bowen RN 8:41:34 Versed I.V. 1 mg Gen Pamela for sedation Wero Bowen RN 8:41:38 Fentanyl I.V. 25 Gen Pamela for sedation mcg Wero Bowen RN 8:42:31 Heparin Bolus I.V. 4000 Gen Pamela for verifi ed units Wero Bowen anticoagulation with Dr. ELIZABETH Conteh 8:54:32 Versed I.V. 1 mg Gen Pamela for sedation Wero Bowen RN 8:54:36 Fentanyl I.V. 25 Gen Pamela for sedation mcg Wero Bowen RN Procedure Log Time Note 8:02:43 Signed procedure consent form obtained from patient. 8:02:45 Diagnostic Cath status Elective 8:02:46 Time tracking: Regular hours (M-F 7:00 - 5:00) 8:02:49 Plan of Care:Hemodynamics will remain stable., Cardiac rhythm will remain stable., Comfort level will be maintained., Respiratory function will remain adequate., Patient/ family verbilizes understanding of procedure., Procedure tolerated without complication., Recovers from procedure without complications.. 8:03:15 Qiana Lawson RN sent for patient. Start room use. 8:11:33 Patient received from Med II to CCL 1 Alert and oriented. Tansferred to table in Supine position. 8:11:34 Warm blankets applied, and pieter hugger turned on for patient comfort. 8:11:35 Correct patient and procedure confirmed by team. 8:11:36 ECG and BP/O2 sat monitors applied to patient. 8:13:48 Full Disclosure recording started 8:18:01 Vital chart was started 8:18:04 Rhythm: sinus rhythm 8:18:25 H&P Date Dictated: 03/08/2019 Within 30 days and on chart.. 8:18:28 Pre-procedure instructions explained to patient. 8:18:29 Pre-op teaching completed and patient verbalized understanding. 8:18:31 Family in patients room. 8:18:33 Patient NPO since Midnight. 8:18:45 Patient allergic to No known allergies 8:18:47 Is the patient allergic to Iodine/contrast media? No. 8:18:48 Is patient on blood thinner?Yes 8:18:52 ACC The patient was administered the following blood thiners within the last 24 hours: ACCPlavix 8:20:48 0.9% NaCl 100 ml/hr I.V. was administered by Pamela Bowen RN; used for procedure; 8:20:56 Oxygen 2 l/min etCO2 Nasal cannula was administered by Pamela Bowen RN; used for procedure; 8:21:02 Lidocaine 2% 20ml vial added to field was administered by Gen Conteh MD; for local anesthetic; 8:21:08 Heparin Flush Bag (1000units/500ml NS) 2 bags added to field was administered by Gen Conteh MD; used for procedure; 8:23:57 Patient diabetic? No. 8:24:00 Previous problem with sedation/anesthesia? No ? 8:24:01 Snore? Yes 8:24:02 Sleep apnea? No 8:24:03 Deviated septum? No 8:24:04 Opens mouth fully? Yes 8:24:05 Sticks out tongue? Yes 8:24:08 Airway obstruction? Yes COPD 8:24:12 Dentures? No ? 8:24:16 Pre procedure: right dorsailis pedis pulse 2+ Normal; easily identifiable; not easily obliterated 8:24:18 Patient pain scale 0/10 ?. 8:24:29 IV patent on arrival in right wrist with 0.9% NaCl at [facility]. 8:24:31 Lab results completed and on chart. 8:24:35 Alarms reviewed by R. N. 8:24:35 Right groin area was prepped with chlora-prep and draped in sterile fashion 8:24:36 Sharps counted by scrub and verified by R.N. 8:25:07 Use device set CATH PACK 8:25:10 Use device set TAUTH PCI 8:25:11 ACIST Syringe (08105) opened to sterile field. 8:25:12 ACIST Manifold (02487) opened to sterile field. 8:25:12 ACIST Hand Control (62855) opened to sterile field. 8:25:13 Bag Decanter () opened to sterile field. 8:25:13 Medline Cath Pack ([id number]) opened to sterile field. 8:25:14 INFLATOR Merit Suma ([id number]) opened to sterile field. 8:25:14 DIAGNOSTIC WIRE .035 260cm J wire (614846) opened to sterile field. 8:25:17 CHOICE PT Extra Support 182cm wire ([id number]) opened to sterile field. 8:25:19 SHEATH 6FR [place]field (SKV498) opened to sterile field. 8:27:31 Baseline sample Acquired. 8:27:52 Zero performed for pressure channel P1 8:28:31 Physician paged 8:36:58 Final Timeout: patient, procedure, and site verified with staff and physician. All members of the team are in agreement. 8:37:00 Right groin site verified by team. 8:37:02 Maximum allowable Isovue 300 dose 300ml. Physician notified. (300ml for normal creatinines. For patients with creatinine of 1.7 or higher multiply weight(kg) x 5 divided by creatinine.) 8:37:07 Fire Safety Assessment: A--An alcohol-based skin anteseptic being used preoperatively., C--Open oxygen or nitrous oxide is being used., D--An ESU, laser, or fiber-optic light is being used. 8:37:11 Physical assessment completed. ASA score P 2 - A patient with mild systemic disease as per Gen Conteh MD. 8:37:14 Sedation plan: IV Moderate Sedation Medication:Versed, Fentanyl 8:37:25 Versed 2 mg I.V. was administered by Pamela Bowen RN; for sedation; 8:37:41 Fentanyl 50 mcg I.V. was administered by Pamela Bowen RN; for sedation; 8:39:14 Procedure started. 8:39:17 Local anesthetic to right femoral artery with Lidocaine 2% by Gen Conteh MD.INITIAL ACCESS ONLY 8:39:54 A 6 Fr Short sheath was inserted into the Right Femoral artery 8:40:36 6 Fr EBU 3.5 guide catheter was inserted over the wire 8:41:34 Versed 1 mg I.V. was administered by Pamela Bowen RN; for sedation; 8:41:38 Fentanyl 25 mcg I.V. was administered by Pamela Bowen RN; for sedation; 8:41:49 CHOICE PT ES wire advanced. 8:42:31 Heparin Bolus 4000 units I.V. was administered by Pamela Bowen RN; for anticoagulation; verified with Dr. Conteh 8:43:45 Wire removed. unable to cross lesion. 8:43:51 Guide Catheter removed. unable to get back-up support 8:44:19 GUIDE 6FR XB 4.0 catheter ([id number]) opened to sterile field. 8:44:26 6 Fr XB 4.0 guide catheter was inserted over the wire 8:46:01 Guide Catheter removed. unable to get back-up support 8:46:07 6 Fr XB 3.5 guide catheter was inserted over the wire 8:46:21 GUIDE 6FR XB 3.5 catheter ([id number]) opened to sterile field. 8:48:07 CHOICE PT ES wire advanced. 8:48:09 Wire advanced across lesion. 8:49:25 Place stent Inflation Number: 1 A MARYSE RX 2.5 x 12 stent ([id number]) was prepped and advanced across the Prox CX. The stent was deployed at 13 ARLEN for 0:10 (min:sec). 8:49:59 Stent catheter was removed intact over wire. 8:50:00 Guide catheter removed. 8:50:00 Wire removed. 8:50:07 6 Fr AR1.0 guide catheter was inserted over the wire 8:50:50 CHOICE PT wire advanced. 8:50:52 Wire advanced across lesion. 8:52:35 The MARYSE RX 3.0 x 18 stent ([id number]) was advanced then removed because of failure to cross lesion 8:53:38 Inflation number: 1 The stent balloon was then re-inflated across the Mid RCA to 17 ARLEN for 0:10 (min:sec). 8:53:52 Inflation number: 2 The stent balloon was then re-inflated across the Mid RCA to 21 ARLEN for 0:10 (min:sec). 8:54:02 Stent catheter was removed intact over wire. 8:54:32 Versed 1 mg I.V. was administered by Pamela Bowen RN; for sedation; 8:54:36 Fentanyl 25 mcg I.V. was administered by Pamela Bowen RN; for sedation; 8:55:21 Place stent Inflation Number: 3 A MARYSE RX 3.0 x 18 stent ([id number]) was prepped and advanced across the Mid RCA. The stent was deployed at 13 ARLEN for 0:10 (min:sec). 8:56:05 Wire removed. 8:56:05 Stent catheter was removed intact over wire. 8:56:06 Guide catheter removed. 8:56:12 EXOSEAL 6Fr (EX600) opened to sterile field. 8:56:22 Sheath removed intact; hemostasis achieved with Exoseal to the Right Femoral artery. 8:56:52 Procedure ended.(Physican Out) 8:57:35 Fluoroscopy time 07.00 minutes. 8:57:43 Fluoroscopy dose: 585 mGy 8:57:43 Flurop Dose total: 585 8:57:46 Contrast amount:Isovue 300 75ml. 8:57:48 Sharps counted by scrub and verified by R.N. 8:57:51 Insertion/operative site no bleeding no hematoma. 8:57:56 Post-op/insertion site Right Femoral artery dressed using a 4 x 4 and Tegaderm. 8:57:58 Post Procedure Pulses reassessed and unchanged 8:58:01 Post procedure rhythm: unchanged. 8:58:04 Estimated blood loss: 5 ml 8:58:07 Post procedure instruction explained to patient.Patient verbalizes understanding. 8:58:08 Patient needs reinforcement of post procedure teaching. 8:58:16 Procedure type changed to Cath procedure, PCI procedure, Coronary Stent, Coronary Stent Initial x2 8:59:03 Procedure and supply charges have been captured, reviewed, submitted and are correct. 8:59:33 Procedure Complication : No complications 8:59:36 See physician's report for complete and final results. 8:59:36 Vital chart was stopped 8:59:47 Report given to Pre/Post Procedure Room. 9:00:01 Patient transfered to Pre/Post Procedure Room with Stretcher. 9:00:03 Full Disclosure recording stopped 9:00:03 Procedure ended. 9:00:10 ACC-PCI Only Patient was given prescriptions, or instructed by Gen Conteh MD to start/continue the following medications upon discharge: Plavix 9:00:12 End room use (Document Last) 9:01:15 GUIDE 6FR AR 1.0 catheter ([id number]) opened to sterile field. Intervention Summary Intervention Notes Time ActionType Lesion and Equipment Used Action# Pressure Duration Attributes 8:49:25 Place stent Prox CX MARYSE RX 2.5 x 1 13 00:10 12 stent ([id number]) 8:52:35 Discard MARYSE RX 3.0 x Stent 18 stent ([id number]) 8:53:38 Reinflate Mid RCA MARYSE RX 2.5 x 1 17 00:10 stent 12 stent balloon ([id number]) 8:53:52 Reinflate Mid RCA MARYSE RX 2.5 x 2 21 00:10 stent 12 stent balloon ([id number]) 8:55:21 Place stent Mid RCA MARYSE RX 3.0 x 3 13 00:10 18 stent ([id number]) Device Usage Item Name Manufacture Quantity Catalog Number Hospital Part Current M inimal Lot# / Charge Number Stock Stock Serial# Code ACIST Syringe Acist 1 38506 082533 930578 441228 2 0 (24233) Medical Systems Inc ACIST Hand Acist 1 80423 867117 825055 428830 5 Control Medical (34476) Systems Inc ACIST Manifold Acist 1 27473 488311 771637 817123 5 (73744) Medical Systems Inc Medline Cath Medline 1 [id number] 517539 79350 217533 5 Pack ([id number]) Bag Decanter Microtek 1 2001S 585632 97918 744848 5 (2001S) Medical Inc. DIAGNOSTIC St Ashish 1 769057 825587 711503 586502 3 0 WIRE .035 260cm J wire (755372) INFLATOR Merit Merit 1 QE0744 078920 207020 888497 1 5 Shootitlive (NJ2831) CHOICE PT [place] 1 [id number] 308293 593964 947688 5 Extra Support Scientific 182cm wire (0070486H2) SHEATH 6FR Terumo 1 KTW594 728004 175899 619390 4 0 Oldfield (TYB324) GUIDE 6FR XB Cardinal 1 81298395 867163 564850 747249 2 4.0 catheter DealTraction (56105436) GUIDE 6FR XB Cardinal 1 [id number] 858309 860243 746802 2 3.5 catheter Health (21905191) MARYSE RX 2.5 x Medtronic 1 [id number] 358414 4163885 336060 5 [id number] 12 stent ([id number]) MARYSE RX 3.0 x Medtronic 1 [id number] 159507 8957206 370216 5 [id number] 18 stent ([id number]) EXOSEAL 6Fr Cardinal 1 EX600 131415 998286 602033 1 0 (EX600) Health GUIDE 6FR AR Medtronic 1 [id number] 330541 12317 729516 1 1.0 catheter ([id number]) Signature Audit [place] Stage Time Signature Unsigned Intra-Procedure 03/10/2019 Bridgett 9:04:23 AM Counts RT(R) Signatures Monitor : Bridgett Signature : Counts RT Date : Time : [address] [place] [address]
[~2019-03-08 18:55] MED LIST changes: +BAYER CHEWABLE81 MG PO; +HYDROCODON-ACE1 EAC7 PO; +SYMBICORT 16010.2 GM INH; +VOLTAREN100 GM TOPICAL
[2019-03-08 19:11] LABS: BASOPHILS 0.2 % (0-2); EOSINOPHILS 3.4 % (0-7); HEMATOCRIT 38.5 % (36.0-48.0); HEMOGLOBIN 12.4 g/dL (12-16); IMMATURE GRANULOCYTES 0.8 % (0-5); LYMPHOCYTES 18.1 % (15-50); MCH 28.6 pg (26.0-34.0); MCHC 32.2 g/dL (31.0-37.0); MCV 88.7 fL (80.0-100.0); MEAN PLATELET VOLUME 10.3 fL (7.4-10.4); MONOCYTES 5.1 % (2-11); NEUTROPHILS 72.4 % (40-80); PLATELET COUNT 205 10x3/uL (130-400); RBC 4.34 10x6/uL (4.00-5.40); RDW 16.6 % (11.5-14.5); WBC 5.3 10x3/uL (4.8-10.8)
[2019-03-08 19:20] LABS: APTT 31.2 SECONDS (22.8-39.4); INR 0.95 (0.85-1.17); PROTIME 12.2 SECONDS (11.6-15.0)
[2019-03-08 19:26] LABS: ALBUMIN 3.6 g/dL (3.4-5.0); ALKALINE PHOSPHATASE 59 U/L (46-116); ALT (SGPT) 35 U/L (10-68); BILIRUBIN - TOTAL 0.32 mg/dL (0.2-1.3); CALC OSMOLALITY 287 mosm/kg (275-300); CALCIUM 8.9 mg/dL (8.5-10.1); CARBON DIOXIDE 30.1 mmol/L (21.0-32.0); CHLORIDE - SERUM 103 mmol/L (98-107); CREATININE - SERUM 1.5 mg/dL (0.6-1.3); GLUCOSE 131 mg/dL (74-106); POTASSIUM - SERUM 3.6 mmol/L (3.5-5.1); PROTEIN - SERUM 7.6 g/dL (6.4-8.2); SODIUM 141 mmol/L (136-145); UREA NITROGEN 26 mg/dL (7-18); eGFR NON AFRICAN AMERICAN 36 mL/min (90-120)
[2019-03-08 19:37] LABS: CKMB 2.4 U/L (0.0-3.6); CREATINE KINASE 202 UL (21-215); MAGNESIUM - SERUM 2.1 mg/dL (1.8-2.4); TROPONIN-I < 0.017 ng/mL (0.000-0.060)
[2019-03-09] VITALS (7 sets, daily range): BP systolic 94–116; BP diastolic 43–66; Ht 172.7 cm; Wt 85.9 kg
[2019-03-09 05:45] LABS: CKMB 1.8 U/L (0.0-3.6); CREATINE KINASE 158 UL (21-215); TROPONIN-I < 0.017 ng/mL (0.000-0.060)
[2019-03-10] VITALS: BP 93/57
[2019-03-10 04:00] VITALS: BP 96/59
[2019-03-10 08:16] VITALS: BP 125/73
--- NOTE | 2019-03-10 08:59 | HP ---
PATIENT: JOSE WATTS MEDICAL RECORD: [id number] ACCOUNT: [id number] LOCATION:D. D.2114 : 47 ADMISSION DATE: 03/08/19 PCP: REINA BARRAZA HISTORY AND PHYSICAL EXAMINATION DIAGNOSES: 1. Angina. 2. Coronary artery disease. 3. Recent PTCA and stent to LAD with concomitant disease to RCA and circumflex. 4. Hypertension. 5. Hyperlipidemia. HISTORY: Mrs. Watts presents with increasing episodes of chest discomfort. She underwent cardiac catheterization at the end of January. Initially, she was planned for bypass. The decision was made to perform PTCA and stent of the LAD. This was done successfully. There was an excellent result; however, she has concomitant disease of circumflex and RCA. PHYSICAL EXAMINATION: GENERAL APPEARANCE: Well-nourished, well-developed, appears stated age. Level of distress, comfortable. PSYCHIATRIC: Mental status, alert, normal affect. Orientation, oriented to time, place and person. EYES: Lids and conjunctiva, noninjected. No discharge, no pallor. ENT: Lips, teeth, gums, normal dentition. Oropharynx, no cyanosis, no pallor. NECK: Carotid arteries, bilateral normal upstroke, no bruits, no thrills. JUGULAR VEINS: No jugular venous pressure or distention. CERVICAL LYMPH NODES: Nontender, nonenlarged. THYROID: Not enlarged. Nontender. No nodules. LUNGS: Respiratory effort, unlabored. CHEST: Normal curvature. No thoracic deformity. No chest wall tenderness. Percussion, resonant. Auscultation, clear. No wheezes, no rales, no rhonchi. CARDIOVASCULAR: Precordial exam, nondisplaced. No heaves or pericardial thrills. Rate and rhythm, regular. Heart sounds, normal S1, normal S2. No S3, no gallop, no rub. Systolic murmur, not heard. Diastolic murmur, not heard. EXTREMITIES: No cyanosis, no edema. Peripheral pulses, full and equal in all extremities, except as noted. No bruits appreciated. ABDOMEN: Soft, nondistended. Normal aorta. No bruit. Nontender. No masses. Liver, nontender, no hepatomegaly. Spleen, nontender, no splenomegaly. MUSCULOSKELETAL: No joint tenderness. No joint swelling. No erythema. NEUROLOGICAL: Normal gait, normal strength, normal tone. SKIN: Warm and dry. OVERALL IMPRESSION: Anginal symptomatology with disease of circumflex and RCA. We will proceed with coronary angiography to check the patency of the LAD stent and proceed with transcatheter revascularization if that is complete. TRANSINT:[id number] Voice Confirmation ID: [id number] DOCUMENT ID: [id number] HISTORY AND PHYSICAL [id number] JOSE WATTS JEFFREY MD at 0859 CC: [id number] DICTATION DATE: 03/09/19 0848 HOGSHEAD HOOPER: 03/09/19 1127 ADM IN [facility] [address] [id number]
--- NOTE | 2019-03-12 14:39 | DS ---
PATIENT:JOSE WATTS :47 MEDICAL RECORD: [id number] DISCHARGE SUMMARY ADMISSION DATE: 03/08/19 DISCHARGE DATE: 03/10/19 DATE OF DISCHARGE: 03/10/2019 DISCHARGE DIAGNOSES: 1. Unstable angina. 2. Coronary artery disease. 3. Percutaneous transluminal coronary angioplasty stent right coronary artery, left anterior descending and circumflex this admission. 4. Hypertension. 5. Hyperlipidemia. HOSPITAL COURSE: Mrs. Watts presents with unstable anginal symptomatology, found to have 3-vessel coronary artery disease, underwent successful PTCA stent of all 3 vessels, was discharged home with the addition of aspirin and Plavix to her medical regimen. Will follow up with [facility] in 1 month. TRANSINT:[id number] Voice Confirmation ID: [id number] DOCUMENT ID: [id number] LUIS HERNANDEZ MD at 1439 CC: [id number] DICTATION DATE: 03/10/19 0900 AIR CREW SUPERVISOR: 03/11/19 0254 DIS IN 03/10/19 [address] [place] [address]
--- NOTE | 2019-03-12 14:39 | OP ---
PATIENT NAME: JOSE NEGRO MEDICAL RECORD: [id number] :47 LOCATION:[facility] ADMISSION DATE:03/08/19 SURGEON: LUIS HERNANDEZ MD DATE OF OPERATION: 03/10/2019 PROCEDURES: 1. PTCA stent left circumflex. 2. PTCA stent RCA. 3. Selective coronary angiography. INDICATION: Angina and coronary artery disease. PROCEDURE IN DETAIL: After informed consent was obtained and after a detailed description of risks, benefits as well as alternative therapies, the patient elected to proceed with angiogram and angioplasty. The right femoral area was prepped and draped in normal sterile fashion. Right femoral artery was cannulated via modified Seldinger technique with placement of 6-Wallisian sheath. All catheters exchanged through this sheath. FINDINGS: The left circumflex has 75% to 80% stenosis as does the RCA. The circumflex was addressed with a 2.5 x 12 mm Sudarshan stent. Result was 0% residual stenosis. The RCA was addressed with a 3.0 x 18 mm Martin stent. Result was 0% residual stenosis. OVERALL IMPRESSION: Successful percutaneous transluminal coronary angioplasty stent of the right coronary artery and circumflex both going from 75% to 80% initial stenosis to 0% residual. TRANSINT:[id number] Voice Confirmation ID: [id number] DOCUMENT ID: [id number] LUIS HERNANDEZ MD at 1439 CC: [id number] DICTATION DATE: 03/10/19 0859 IMMERSION METALCLEANER: 03/10/19 1501 DIS IN 03/10/19 [address] [place] [address]
--- NOTE | 2019-03-12 14:39 | EC ---
PATIENT:JOSE NEGRO DATE OF SERVICE: 03/08/19 SEX: F MEDICAL RECORD: [id number] DATE OF : 47 [facility] AGE [facility] PATIENT: 73 ADMISSION DATE: 03/08/19 REFERRING PHYSICIAN: INTERPRETING PHYSICIAN: LUIS CONTEH MD ECHOCARDIOGRAM REPORT ECHO CHARGES 4 ECHO COMPLETE Date: 03/09/19 CLINICAL DIAGNOSIS: CP ECHOCARDIOGRAPHIC MEASUREMENTS (adult normal given) AC root (d.<3.7cm) 2.8 cm LV Septum d (<1.2 cm> 0.9 cm Valve Excursion 1.9 cm LV Septum (systole) 1.0 cm Left Atria (s.<4.0cm> 3.6 cm LVPW d(<1.2cm) 1.5 cm RV (d.<2.3cm) 3.1 cm LVPW (sytole) 1.8 cm LV diastole(<5.6CM) 5.4 cm MV E-F(>70mm/sec) cm LV systole 4.3 cm LVOT Diameter 2.0 cm MV exc.(>10mm) cm Est.ejection fraction (50-75%) % DOPPLER: LVIT cm/sec A 144 cm/sec E 106 cm/sec LA cm/sec RVSP 31.7 mmHg LVOT 128 cm/sec AOP1/2T m/s Asc. Ao 158 cm/sec RVOT 64 cm/sec RA cm/sec PA 76 cm/sec AV Gradient Peak 10.0 mmHg AV Mean 5.7 mmHg AV Area 2.9 cm MV Gradient Peak 9.1 mmHg MV Mean 4.5 mmHg MV Area cm COMMENTS: Environmental Services Project Manager: Ghazal TINOCOMELLY YOUNG Crusher Plant Operator: 1 Dr. Conteh TAPE# PACS Pericardial Effusion N DATE OF SERVICE: FINDINGS: 1. Left ventricular chamber size is within normal limits. Left ventricular systolic function is normal. Overall ejection fraction estimated at 60%. 2. Left atrium, right atrium, and right ventricle chamber sizes are within normal limits. 3. Valvular structures have normal structure and motion. 4. Doppler interrogation reveals only trace tricuspid regurgitation, no other valvular insufficiency or stenosis. Pulmonary systolic pressure is normal ECHOCARDIOGRAM REPORT [id number] JOSE NEGRO estimated at 31 mmHg. 5. No evidence of pericardial effusion or left ventricular thrombus. TRANSINT:[id number] Voice Confirmation ID: [id number] DOCUMENT ID: [id number] LUIS CONTEH MD at 1439 CC: [id number] DICTATION DATE: 03/10/19904 RELEASE SPECIALIST: 03/10/19 1506 DIS IN 03/10/19 [id number] [place] [address]
== END 2019-03-10 12:49 | disposition home or self-care (01) ==
LOC: D.ER 18:55 → D.CLR 20:26 → OBSVTIME 20:26 → D.M2 20:26 → D.CLR 03-10 09:03
PROVIDERS: Emergency Medicine; ADMIT Internal Medicine Interventional Cardiology; ATTEND Internal Medicine Interventional Cardiology
DX: I25.110 Atherosclerotic heart disease of native coronary artery with unstable angina pectoris (principal); I10 Essential (primary) hypertension; E78.5 Hyperlipidemia, unspecified
CPT/HCPCS: 93458; C9600 ×2

== ENCOUNTER → 2019-04-10 12:51 | Outpatient (CLI) | payer MEDICARE ==
[2019-03-09 04:37] VITALS: BMI 28.8
[~2019-04-10 12:51] MED LIST changes: +TRAZODONE HCL150 MG PO
== END | disposition home or self-care (01) ==
LOC: D.RT 12:51
PROVIDERS: ATTEND Family Medicine
DX: R06.00 Dyspnea, unspecified (principal)

== ENCOUNTER 2019-04-11 13:24 | Observation (INO) | payer MEDICARE, MEDICAID ==
[~2019-04-11] VITALS: Ht 172.7 cm; Wt 86.4 kg
--- NOTE | ~2019-04-11 | HEMODYNAMI ---
PATIENT:JOSE NEGRO MEDICAL RECORD: [id number] : 47 LOCATION:[facility] D.2120 ADMISSION DATE: 04/11/19 Generatedon:04/12/20199:22 Patient name: JOSE NEGRO Patient #: [id number] SSN: : 1945 Date of study: 04/12/2019 Page: Of Hemodynamic Procedure Report Patient Data Patient Demographics Procedure consent was obtained First Name: JOSE Gender: Female Last Name: MARKY : 1945 [facility] Initial: KEHINDE Age: 73 year(s) Patient #: [id number] Race: Unknown Additional ID: [id number] Contact details [address]: [address] [place] [address] State: [place] City: [place] Zip code: [address] Past Medical History Allergies: No known allergies Admission Admission Data Admission Date: 04/11/2019 Admission Time: 15:14 Admit Source: Emergency department Room #: D.2120 Lab Results Lab Result Date: 04/11/2019 Lab Result Time: 17:10 Biochemistry Name Units Result Min Max BUN mg/dl 17 --(---*)-- 7 18 Creatinine mg/dl 1.3 --(---*)-- 0.6 1.3 CBC Name Units Result Min Max Hematocrit % 36.7 *-(----)-- 42 54 Hemoglobin g/dl 11.8 *-(----)-- 13.5 17.5 Procedure Procedure Types Cath Procedure Diagnostic Procedure [facility] w/Coronaries Sedation Charges Moderate Sedation up to 15 minutes Procedure Description Procedure Date Procedure Date: 04/12/2019 Procedure Start Time: 9:11 Procedure End Time: 9:21 Procedure Staff Name Function Manohar Yadav MD Performing Physician Charlie Donnelly RT Monitor Pennie Rivera RT Scrub Carlos A Mckeon RN Nurse Procedure Data Cath Procedure Fluoroscopy Diagnostic fluoroscopy Total fluoroscopy Time: 1.6 time: 1.6 min min Diagnostic fluoroscopy Total fluoroscopy dose: 1.6 dose: 1.6 mGy mGy Contrast Material Contrast Material Type Amount (ml) Isovue 300 53 Entry Location Entry Primary Successful Side Size Upsize Upsize Entry Closure Succes sful Closure Location (Fr) 1 (Fr) 2 (Fr) Remarks Device Remarks Femoral Right 5 Fr Exoseal artery Estimated blood loss: 5 ml Diagnostic catheters Device Type Used For End Catheter Placement MULTIPACK JL 4.0 5Fr Procedure catheter DIAGNOSTIC JL 3.5 5Fr Procedure catheter ([id number]) MULTIPACK 3DRC 5Fr Procedure catheter MULTIPACK Pigtail 5 Fr Procedure catheter Procedure Complications No complications Procedure Medications Medication Administration Route Dosage 0.9% NaCl I.V. 100 ml/hr Oxygen etCO2 Nasal cannula 2 l/min Heparin Flush Bag added to field 2 bags (1000units/500ml NS) Lidocaine 2% added to field 20 Benadryl I.V. 50 mg Versed I.V. 1 mg Fentanyl I.V. 50 mcg Versed I.V. 1 mg Fentanyl I.V. 50 mcg Plavix P.O. 75 mg Hemodynamics Rest HGB: 11.8 (g/dl) Heart Rate: 70 (bpm) Pressure Samples Time Site Value (mmHg) Purpose Heart Use Rate(bpm) 9:17 LV 100/10,13 Snapshot 72 9:17 AO 92/42(61) Pullback 72 Gradients Valve Time Site Site 2 Mean SEP/DFP Peak To Heart Use 1 (mmHg) (sec/min) Peak Rate (mmHg) (bpm) Aortic 9:17 LV AO 9 20 72 92/42(61) Calculations Valve P-P Mean Valve Index Valve Source Name Gradient Area Flow (cm2) Aortic 9 9 Snapshots Pre Cath Intra NCS Post Cath Vital Signs Time Heart Resp SPO2 etCO2 NIBP (mmHg) Rhythm Pain Sedation Rate (ipm) (%) (mmHg) Status Level (bpm) 9:03:41 69 19 95 30.5 126/67(108) NSR 7 (11) 10(A) , Very intense 9:07:51 71 19 94 8.9 112/57(90) NSR 0 (11) 9(A) , No pain 9:12:01 73 11 87 18.6 112/60(91) NSR 0 (11) 9(A) , No pain 9:16:11 72 18 93 0 106/58(78) NSR 0 (11) 9(A) , No pain 9:20:21 71 10 95 0 112/64(88) NSR 0 (11) 9(A) , No pain Medications Time Medication Route Dose Verified Delivered Reason Notes Ef fectiveness by by 9:03:14 0.9% NaCl I.V. 100 Carlos A Carlos A Per ml/hr Linda Mckeon physician RN RN 9:03:23 Oxygen etCO2 2 Carlos A Carlos A for low 02 Nasal l/min Linda Mckeon sats cannula RN RN 9:03:33 Heparin Flush added 2 Carlos A Carlos A used for Bag to bags Linda Mckeon procedure (1000units/500ml field RN RN NS) 9:03:44 Lidocaine 2% added 20ml Carlos A Carlos A for local to vial Linda Mckeon anesthetic field RN RN 9:04:20 Benadryl I.V. 50 mg Carlos A Carlos A Per Linda Mckeon physician RN RN 9:04:29 Versed I.V. 1 mg Carlos A Carlos A for sedation Linda Mckeon RN RN 9:04:37 Fentanyl I.V. 50 Carlos A Carlos A for sedation mcg Linda Mckeon RN RN 9:11:48 Versed I.V. 1 mg Carlos A Carlos A for sedation Linda Mckeon RN RN 9:11:54 Fentanyl I.V. 50 Carlos A Carlos A for sedation mcg Linda Mckeon RN RN 9:20:16 Plavix P.O. 75 mg Carlos A Carlos A for Linda Mckeon antiplatelet RN RN therapy Procedure Log Time Note 8:35:17 Carlos A Mckeon RN sent for patient. Start room use. 8:41:56 Informed consent obtained and on chart 8:41:59 Admit Source: Emergency department 8:42:15 Diagnostic Cath status Urgent 8:43:50 Time tracking: Call back (After hours or weekends) 8:43:53 Plan of Care:Hemodynamics will remain stable., Cardiac rhythm will remain stable., Comfort level will be maintained., Respiratory function will remain adequate., Patient/ family verbilizes understanding of procedure., Procedure tolerated without complication., Recovers from procedure without complications.. 8:43:58 H&P Date Dictated: 04/11/2019 Within 30 days and on chart.. 8:47:49 Patient received from Med II to CCL 1 Alert and oriented. Tansferred to table in Supine position. 8:47:50 Warm blankets applied, and pieter hugger turned on for patient comfort. 8:47:51 Correct patient and procedure confirmed by team. 8:47:51 ECG and BP/O2 sat monitors applied to patient. 8:47:54 Pre-procedure instructions explained to patient. 8:47:54 Pre-op teaching completed and patient verbalized understanding. 8:47:55 Family in patients room. 8:47:56 Patient NPO since Midnight. 8:48:09 Patient allergic to No known allergies 8:50:36 Is the patient allergic to Iodine/contrast media? No. 8:50:38 Was the patient premedicated? Yes 8:50:40 Is patient on blood thinner?Yes 8:50:43 ACC The patient was administered the following blood thiners within the last 24 hours: ACCPlavix 8:50:47 Patient diabetic? No. 8:50:54 Snore? Yes 8:50:55 Sleep apnea? Yes 8:51:08 Airway obstruction? Yes Emphazema, COPD 8:51:13 Dentures? No ? 9:00:50 Pre procedure: right dorsailis pedis pulse 2+ Normal; easily identifiable; not easily obliterated 9:00:52 Patient pain scale 7/10 chest. 9:00:59 IV patent on arrival in left forearm with 0.9% NaCl at O. 9:02:21 Lab Result : Creatinine 1.3 mg/dl 9:02:21 Lab Result : BUN 17 mg/dl 9:02:21 Lab Result : Hemoglobin 11.8 g/dl 9:02:21 Lab Result : Hematocrit 36.7 % 9:02:24 Lab results completed and on chart. 9:02:28 Right groin area was prepped with chlora-prep and draped in sterile fashion 9:02:29 Alarms reviewed by R. N. 9:02:30 Sharps counted by scrub and verified by R.N. 9:02:37 Baseline sample Acquired. 9:02:37 Vital chart was started 9:02:40 Rhythm: sinus rhythm 9:02:42 Full Disclosure recording started 9:02:45 Physician arrived 9:02:46 --------ALL STOP TIME OUT------ 9:02:46 Final Timeout: patient, procedure, and site verified with staff and physician. All members of the team are in agreement. 9:02:47 Right groin site verified by team. 9:02:50 Maximum allowable Isovue 300 dose 300ml. Physician notified. (300ml for normal creatinines. For patients with creatinine of 1.7 or higher multiply weight(kg) x 5 divided by creatinine.) 9:02:53 Fire Safety Assessment: A--An alcohol-based skin anteseptic being used preoperatively., C--Open oxygen or nitrous oxide is being used., D--An ESU, laser, or fiber-optic light is being used. 9:02:56 Physical assessment completed. ASA score P 2 - A patient with mild systemic disease as per Manohar Yadav MD. 9:02:59 Sedation plan: IV Moderate Sedation Medication:Versed, Fentanyl 9:03:02 Use device set Femoral Dx 9:03:03 ACIST Syringe (60785) opened to sterile field. 9:03:03 Bag Decanter (2002S) opened to sterile field. 9:03:05 ACIST Hand Control (21734) opened to sterile field. 9:03:05 ACIST Manifold (01457) opened to sterile field. 9:03:06 Tegaderm 4 x 4 (1626W) opened to sterile field. 9:03:07 SHEATH 5FR [place] (QMC964) opened to sterile field. 9:03:08 DIAGNOSTIC Multipack 5Fr catheter set (DQ5533) opened to sterile field. 9:03:09 Medline Cath Pack ([id number]) opened to sterile field. 9:03:10 DIAGNOSTIC WIRE .035 260cm J wire (654669) opened to sterile field. 9:03:14 0.9% NaCl 100 ml/hr I.V. was administered by Carlos A Mckeon RN; Per physician; 9:03:23 Oxygen 2 l/min etCO2 Nasal cannula was administered by Carlos A Mckeon RN; for low 02 sats; 9:03:33 Heparin Flush Bag (1000units/500ml NS) 2 bags added to field was administered by Carlos A Mckeon RN; used for procedure; 9:03:44 Lidocaine 2% 20ml vial added to field was administered by Carlos A Mckeon RN; for local anesthetic; 9:04:20 Benadryl 50 mg I.V. was administered by Carlos A Mckeon RN; Per physician; 9:04:29 Versed 1 mg I.V. was administered by Carlos A Mckeon RN; for sedation; :04:37 Fentanyl 50 mcg I.V. was administered by Carlos A Mckeon RN; for sedation; 9:11:16 Zero performed for pressure channel P1 9:11:20 Zero performed for pressure channel P1 9:11:22 Zero performed for pressure channel P1 9:11:32 Procedure started. 9:11:35 Local anesthetic to right femoral artery with Lidocaine 2% by Manohar Yadav MD.INITIAL ACCESS ONLY 9:11:41 A 5 Fr sheath was inserted into the Right Femoral artery 9:11:46 A MULTIPACK JL 4.0 5Fr catheter was advanced over the wire and used for Procedure. 9:11:48 Versed 1 mg I.V. was administered by Carlos A Mckeon RN; for sedation; 9:11:54 Fentanyl 50 mcg I.V. was administered by Carlos A Mckeon RN; for sedation; 9:12:41 LCA angiography performed. 9:13:28 Catheter exchanged over wire. 9:13:37 A DIAGNOSTIC JL 3.5 5Fr catheter ([id number]) was advanced over the wire and used for Procedure. 9:14:25 LCA angiography performed. 9:15:05 Catheter exchanged over wire. 9:15:10 A MULTIPACK 3DRC 5Fr catheter was advanced over the wire and used for Procedure. 9:15:55 RCA angiography performed. 9:16:06 Catheter exchanged over wire. 9:16:12 A MULTIPACK Pigtail 5 Fr catheter was advanced over the wire and used for Procedure. 9:17:18 LV gram done using MCGARRY 9:17:21 Injector settings: Ml/sec: 10, Volume: 20, 9:17:27 EF : 55 % 9:17:27 LV hemodynamics recorded. 9:17:28 Catheter removed. 9:17:31 EXOSEAL 5Fr (EX500) opened to sterile field. 9:17:45 Sheath removed intact; hemostasis achieved with Exoseal to the Right Femoral artery. 9:17:47 Procedure ended.(Physican Out) 9:18:36 Fluoroscopy time 01.60 minutes. 9:19:59 Flurop Dose total: 1.6 9:19:59 Fluoroscopy dose: 1.6 mGy 9:20:05 Contrast amount:Isovue 300 53ml. 9:20:06 Sharps counted by scrub and verified by R.N. 9:20:09 Insertion/operative site no bleeding no hematoma. 9:20:12 Post-op/insertion site Right Femoral artery dressed using a 4 x 4 and Tegaderm. 9:20:15 Post right femoral artery:stable, soft, clean and dry 9:20:16 Plavix 75 mg P.O. was administered by Carlos A Mckeon RN; for antiplatelet therapy; 9:20:17 Post Procedure Pulses reassessed and unchanged 9:20:21 Post-procedure physical assessment completed. ASA score P 2 - A patient with mild systemic disease as per Manohar Yadav MD. 9:20:25 Post procedure rhythm: unchanged. 9:20:30 Estimated blood loss: 5 ml 9:20:31 Post procedure instruction explained to patient.Patient verbalizes understanding. 9:20:32 Patient needs reinforcement of post procedure teaching. 9:21:00 Procedure type changed to Cath procedure, Diagnostic procedure, LHC, LHC w/Coronaries, Sedation Charges, Moderate Sedation up to 15 minutes 9:21:15 Procedure and supply charges have been captured, reviewed, submitted and are correct. 9:21:18 Procedure Complication : No complications 9:21:19 Vital chart was stopped 9:21:20 See physician's report for complete and final results. 9:21:21 Report given to PCU. 9:21:23 Patient transfered to PCU with Stretcher. 9:21:25 Procedure ended. 9:21:25 Full Disclosure recording stopped 9:21:27 End room use (Document Last) Device Usage Item Name Manufacture Quantity Catalog Hospital Part Current Minimal L ot# / Number Charge Number Stock Stock Serial# Code ACIST Acist 1 92536 777046 171577 291381 20 Syringe Medical (11120) Systems Inc Bag Microtek 1 619804 47757 255951 5 Decanter Medical Inc. () ACIST Hand Acist 1 08882 900070 149183 329120 5 Control Medical (06994) Systems Inc ACIST Acist 1 62086 429546 134346 356274 5 Manifold Medical (18876) Systems Inc Tegaderm 4 3M 1 1626W 807345 658487 744548 5 x 4 (1626W) SHEATH 5FR Terumo 1 JJC358 993928 932769 967467 5 [place] (SDA633) DIAGNOSTIC Cardinal 1 AG0802 341466 74822 517898 30 Multipack Health 5Fr catheter set (LQ6629) Medline Medline 1 [id number] 572439 83446 895219 5 Cath Pack ([id number]) DIAGNOSTIC St Ashish 1 483345 496371 342874 642318 30 WIRE .035 260cm J wire (887804) MULTIPACK Cardinal 1 564406 5 JL 4.0 5Fr Health catheter DIAGNOSTIC Cardinal 1 [id number] 757918 890258 299723 5 JL 3.5 5Fr Health catheter (814146O) MULTIPACK Cardinal 1 452279 5 3DRC 5Fr Health catheter MULTIPACK Cardinal 1 713629 5 Pigtail 5 Health Fr catheter EXOSEAL 5Fr Cardinal 1 EX500 169578 918008 537086 10 (EX500) Health Signature Audit [place] Stage Time Signature Unsigned Intra-Procedure 04/12/2019 Charlie Donnelly 9:21:47 AM RT(R) Signatures Monitor : Charlie Donnelly RT Signature : Date : Time : [place] [id number] [place] [address]
[~2019-04-11 13:24] MED LIST changes: -TRAZODONE HCL150 MG PO
[2019-04-11] MEDS ORDERED: TRAZODONE HCL150 MG PO (13:34)
[2019-04-11 13:57] VITALS: BP 92/69
--- NOTE | 2019-04-11 13:58 | NUR ---
PT SITTING UP IN BED , FROWNING, ASK WHAT IS WRONG , SHE STATES SHE IS HURTING.
[2019-04-11 14:16] LABS: BASOPHILS 0.2 % (0-2); EOSINOPHILS 2.2 % (0-7); HEMATOCRIT 36.7 % (36.0-48.0); HEMOGLOBIN 11.8 g/dL (12-16); IMMATURE GRANULOCYTES 0.3 % (0-5); LYMPHOCYTES 12.7 % (15-50); MCH 28.2 pg (26.0-34.0); MCHC 32.2 g/dL (31.0-37.0); MCV 87.8 fL (80.0-100.0); MEAN PLATELET VOLUME 10.2 fL (7.4-10.4); MONOCYTES 5.4 % (2-11); NEUTROPHILS 79.2 % (40-80); PLATELET COUNT 179 10x3/uL (130-400); RBC 4.18 10x6/uL (4.00-5.40); RDW 16.1 % (11.5-14.5)
[2019-04-11 14:32] LABS: ALBUMIN 3.4 g/dL (3.4-5.0); ALKALINE PHOSPHATASE 62 U/L (46-116); ALT (SGPT) 36 U/L (10-68); BILIRUBIN - TOTAL 0.37 mg/dL (0.2-1.3); CALC OSMOLALITY 287 mosm/kg (275-300); CALCIUM 8.9 mg/dL (8.5-10.1); CHLORIDE - SERUM 106 mmol/L (98-107); CREATININE - SERUM 1.3 mg/dL (0.6-1.3); GLUCOSE 118 mg/dL (74-106); POTASSIUM - SERUM 3.3 mmol/L (3.5-5.1); SODIUM 143 mmol/L (136-145); UREA NITROGEN 17 mg/dL (7-18); eGFR NON AFRICAN AMERICAN 43 mL/min (90-120)
[2019-04-11 14:36] LABS: APTT 27.4 SECONDS (22.8-39.4); INR 1.06 (0.85-1.17); PROTIME 13.3 SECONDS (11.6-15.0)
[2019-04-11 14:43] LABS: CKMB 2.5 U/L (0.0-3.6); CREATINE KINASE 192 UL (21-215); MAGNESIUM - SERUM 1.8 mg/dL (1.8-2.4)
[2019-04-11 14:45] LABS: TROPONIN-I < 0.017 ng/mL (0.000-0.060)
[2019-04-11 15:37] LABS: THYROID STIMULATING HORMONE 0.17 uIU/mL (0.36-3.74)
--- NOTE | 2019-04-11 15:48 | NUR ---
TRANSFER FROM ER BY STRETCHER. OREINTED TO ROOM. CALL LIGHT IN REACH. WILL CONT. PLAN OF CARE.
[2019-04-11 16:12] VITALS: BP 103/55; BMI 28.9
[2019-04-11 16:48] VITALS: Ht 172.7 cm; Wt 86.4 kg
[2019-04-11 20:00] VITALS: BP 102/46
--- NOTE | 2019-04-11 20:00 | NUR ---
INITIAL ROUNDS AND ASSESSMENT COMPLETED. PT UP AND ABOUT IN ROOM. ALERT/ORIENTED. REVIEWED DX/NEED FOR NPO UNTIL SEEN BY DEBURRER STRIP IN AM. O2 @ 2L/NC WITH NONLABORED RESPIRATIONS. SR PER TELEMETRY. SALINE LOCK TO LEFT A/C. MONITOR AND CPOC.
[2019-04-11 20:43] LABS: CREATINE KINASE 156 UL (21-215)
[2019-04-11 20:46] LABS: TROPONIN-I < 0.017 ng/mL (0.000-0.060)
--- NOTE | 2019-04-11 20:50 | NUR ---
SPOKE WITH [facility] IN PHARMACY ABOUT NO MIRAPEX 1MG AVAILABLE ON FLOOR. PER [facility] MIRAPEX THAT THEY HAD WAS RECALLED. SHE WILL ATTEMPT TO LOCATE SOME FOR TONIGHT.
--- NOTE | 2019-04-11 21:13 | NUR ---
PT C/O NAUSEA/FACE FLUSHED. SR PER TELEMETRY. MEDICATED WITH ZOFRAN 4MG SIVP. WILL MONITOR.
--- NOTE | 2019-04-11 22:27 | NUR ---
MIRAPEX HAS BEEN DELIVERED AND DOSE GIVEN. PT NO LONGER FEELS NAUSEATED. MONITOR AND CPOC.
[2019-04-12] VITALS: BP 114/58
[2019-04-12 02:48] LABS: BASOPHILS 0 % (0-2); EOSINOPHILS 3.3 % (0-7); HEMOGLOBIN 10.9 g/dL (12-16); IMMATURE GRANULOCYTES 0.7 % (0-5); LYMPHOCYTES 20.7 % (15-50); MCH 28.1 pg (26.0-34.0); MCHC 31.1 g/dL (31.0-37.0); MEAN PLATELET VOLUME 10.4 fL (7.4-10.4); MONOCYTES 8.3 % (2-11); PLATELET COUNT 155 10x3/uL (130-400); RBC 3.88 10x6/uL (4.00-5.40); RDW 16.3 % (11.5-14.5); WBC 4.6 10x3/uL (4.8-10.8)
[2019-04-12 02:50] LABS: MCV 90.2 fL (80.0-100.0)
[2019-04-12 03:13] LABS: CALC OSMOLALITY 287 mosm/kg (275-300); CALCIUM 8.4 mg/dL (8.5-10.1); CARBON DIOXIDE 25.8 mmol/L (21.0-32.0); CHLORIDE - SERUM 107 mmol/L (98-107); CKMB 1.5 U/L (0.0-3.6); CREATINE KINASE 156 UL (21-215); CREATININE - SERUM 1.3 mg/dL (0.6-1.3); GLUCOSE 128 mg/dL (74-106); POTASSIUM - SERUM 3.3 mmol/L (3.5-5.1); SODIUM 143 mmol/L (136-145); UREA NITROGEN 16 mg/dL (7-18); eGFR NON AFRICAN AMERICAN 43 mL/min (90-120)
[2019-04-12 03:24] LABS: TROPONIN-I < 0.017 ng/mL (0.000-0.060)
[2019-04-12 04:25] VITALS: BP 109/56
--- NOTE | 2019-04-12 07:25 | NUR ---
ASSESSMENT COMPLETED. ALERT AND ORIENTED. TELEMERTY SHOWS SR. 02 AT 2 L/M PER NC. NPO FOR TEACHER KINDERGARTEN.
--- NOTE | 2019-04-12 08:30 | NUR ---
TO CAMP ATTENDANT PER BED
--- NOTE | 2019-04-12 09:45 | NUR ---
BACK FROM DISPERSION MIXER. ALERT BUT SEDATED. TELEMERTY SHOWS SR 64. RIGHT GROIN SOFT WITH DRSG DRY AND INTACT. PPP. DENIES ANY NEEDS. SR UP WITH CALL LIGHT IN REACH
--- NOTE | 2019-04-12 12:26 | NUR ---
LYING QUIETLY. DENIES ANY NEEDS. RIGHT GROIN SOFT WITH DRSG DRY AND INTACT. PPP
--- NOTE | 2019-04-12 13:00 | NUR ---
I have reviewed this patient and I concur with the Shift Assessment completed by the Licensed Practical Nurse today this shift.
[2019-04-12 13:11] VITALS: BP 111/48
[2019-04-12 14:05] LABS: ANION GAP 11.1 mmol/L (8-16); CALCIUM 8.4 mg/dL (8.5-10.1); CARBON DIOXIDE 28.1 mmol/L (21.0-32.0); CREATININE - SERUM 1.2 mg/dL (0.6-1.3); POTASSIUM - SERUM 3.2 mmol/L (3.5-5.1)
--- NOTE | 2019-04-12 14:27 | NUR ---
PT DISCHARGED. IV DCD WITH TIP INTACT. TO PRIVATE CAR PER WHEELCHAIR
--- NOTE | 2019-04-14 09:15 | MORECARE ---
CASE MANAGEMENT DISCHARGE SUMMARY PATIENT: JOSE NEGRO UNIT: [id number] ADM DATE: 04/11/19 AGE: 73 : 46 SEX: F ROOM/BED: D.5681 AUTHOR: KRISTI LOVETT PHYSICIAN: REFERRING PHYSICIAN: REINA BARRAZA MD DATE OF SERVICE: 04/14/19 Discharge Plan Patient Name: JOSE NEGRO [facility] [facility] 1945 Planned Disposition: Home Anticipated Discharge Date: 04/12/19 Discharge Date: 04/12/2019 Expected LOS: 1 Initial Reviewer: [email or web address] Initial Review Date: 04/14/2019 Generated: 04/14/19 10:15 am Patient Name: JOSE NEGRO Page [phone] at 0915 All edits/amendments must be made on the electronic document DICTATION DATE: 04/14/19913 SOCK KNITTING MACHINE OPERATOR: MANNY 04/14/19913 RPT#: [id number] DC DATE:04/12/19 STATUS: DIS IN [facility] [address] [place] [address] END OF REPORT
--- NOTE | 2019-04-14 10:07 | OP ---
PATIENT NAME: JOSE NEGRO MEDICAL RECORD: [id number] :[birth year] LOCATION:D.M2 D.2120 ADMISSION DATE:04/11/19 SURGEON: MARLYN ZAIDI MD DATE OF OPERATION: 04/12/2019 PROCEDURE: Left heart catheterization, selective coronary angiography, right femoral artery approach. CATHETERS: A 5-Tanzanian sheath, 5/4 left and right Tennille, 5/4 pig. The procedure was well tolerated. The patient was returned to will. ExoSeal device placed. FINDINGS: Left ventriculography in 30-degree MCGARRY view: Normal wall motion, normal systolic function. CORONARY ANATOMY: LEFT MAIN: Left main is free of disease. LAD: Area of previous stenting is widely patent. No evidence of acute stent thrombosis, no evidence of restenosis. No progression of kiowa tribe disease. CIRCUMFLEX: No evidence of restenosis. The rest of the vessel is smooth-walled. RIGHT CORONARY ARTERY: No evidence of stent thrombosis, restenosis. Rest of the vessel is smooth-walled. IMPRESSION: Widely patent stents, normal LV function. No progression of kiowa tribe disease. No other abnormality. TRANSINT:[id number] Voice Confirmation ID: [id number] DOCUMENT ID: [id number] MARLYN ZAIDI MD at 1007 CC: [id number] DICTATION DATE: 04/12/19924 FRONT LINE SUPERVISOR: 04/12/19 1300 DIS IN 04/12/19 [facility] [address] [facility] [place] [address]
--- NOTE | 2019-04-14 10:07 | CN ---
PATIENT NAME:JOSE NEGRO MEDICAL RECORD: [id number] : [birth year] LOCATION:D. D.2120 ADMIT DATE: 04/11/19 ACCOUNT: [id number] CONSULTING PHYSICIAN: MARLYN ZAIDI MD REFERRING PHYSICIAN: REINA BARRAZA MD DATE OF CONSULTATION: 04/12/2019 HISTORY OF PRESENT ILLNESS: This is a 73-year-old female with a history of coronary artery disease, status post intervention, has history of obstructive pulmonary disease, making high risk for coronary bypass grafting. Underwent multivessel coronary intervention. Had PFTs yesterday. Was somewhat tired and fatigued after this. Had onset of chest pain. Question if this is demand ischemia versus restenosis/occlusion of stent. PAST MEDICAL HISTORY: Includes; 1. History of obstructive pulmonary disease. 2. Coronary artery disease. 3. Dyslipidemia. MEDICATIONS: Include Symbicort 2 puffs b.i.d., Lasix 20 every day, tramadol 50 every 4 hours p.r.n., aspirin 81 every day, trazodone 150 at bedtime, Lyrica 100 t.i.d., Plavix 75 daily, baclofen 10 every day. ALLERGIES: None known. SOCIAL HISTORY: Nonsmoker. Nondrinker. Takes care of all her ADLs. REVIEW OF SYSTEMS: The patient reports easy bruising but reports no swollen glands. The patient reports no fever, no night sweats, no significant weight gain, no significant weight loss. No significant exercise tolerance. The patient reports no dry eyes, no irritation, no vision change. Patient reports no difficulty hearing and no ear pain. Patient reports no frequent nose bleeds or nose and sinus problems. Patient reports on arm pain on exertion. No shortness of breath while lying down. No history of heart murmur. Patient reports no cough, no wheezing or coughing up blood. Patient reports no abdominal pain, no vomiting. Normal appetite. No diarrhea and not vomiting blood. No nausea and no constipation. Patient reports no incontinence. No difficulty urinating. No hematuria. No increased frequency. Patient reports no muscle aches. No weakness, no arthralgias, no back pain. No swelling of the extremities. Patient reports no abnormal mole, no jaundice, no rashes. Reports no loss of consciousness. No weakness and no numbness. No seizures, dizziness, or headaches. The patient reports no depression, no sleep disturbance, feeling safe in a relationship and no alcohol abuse. Patient reports on fatigue. Reports no runny nose or sinus pressure. No itching, no hives, and no frequent sneezing. PHYSICAL EXAMINATION: GENERAL: Pleasant female, in no acute distress. VITAL SIGNS: Blood pressure 109/56, pulse 70 and regular. HEENT: Normocephalic, atraumatic. NECK: No JVD or bruit. HEART: Regular. A II/ systolic ejection murmur. LUNGS: Decreased air excursion. No active wheezing. ABDOMEN: Soft, nontender. EXTREMITIES: Pulses 2+ with no edema. CONSULT REPORT [id number] JOSE NEGRO DIAGNOSTIC DATA: ECG shows minor nonspecific ST-T changes. IMPRESSION: Acute coronary syndrome. PLAN: Diagnostic angiography, intervention based on the above. TRANSINT:[id number] Voice Confirmation ID: [id number] DOCUMENT ID: [id number] MARLYN ZAIDI MD at 1007 CC: [id number] DICTATION DATE: 04/12/19 0807 SERVICE LINE BUS CLEANER: 04/12/19 1108 DIS IN 04/12/19 [place] [id number] [place] [id number]
== END 2019-04-12 15:10 | disposition home or self-care (01) ==
LOC: D.ER 13:24 → D.M2 15:14 → OBSVTIME 15:14 → D.M2 16:23 → D.SDCHOLD 16:37 → D.M2 16:44
PROVIDERS: Emergency Medicine; Internal Medicine Interventional Cardiology; ADMIT Family Medicine; ATTEND Family Medicine
DX: R07.89 Other chest pain (principal); I25.119 Atherosclerotic heart disease of native coronary artery with unspecified angina pectoris; J44.9 Chronic obstructive pulmonary disease, unspecified; E78.5 Hyperlipidemia, unspecified; Z86.73 Personal history of transient ischemic attack (TIA), and cerebral infarction without residual deficits; I11.0 Hypertensive heart disease with heart failure; I50.30 Unspecified diastolic (congestive) heart failure; Z87.891 Personal history of nicotine dependence

== ENCOUNTER 2019-05-19 11:17 | Inpatient (IN) | payer MEDICARE, MEDICAID ==
[2019-05-19] VITALS (12 sets, daily range): BP systolic 94–165; BP diastolic 43–68; BMI 28.3
[~2019-05-19 11:17] MED LIST changes: +TRAZODONE HCL150 MG PO
--- NOTE | 2019-05-19 12:02 | NUR ---
PT OUT OF THE ED FOR ORDERED CT AT THIS TIME.
[2019-05-19 12:06] LABS: BASOPHILS 0.1 % (0-2); EOSINOPHILS 0.5 % (0-7); HEMATOCRIT 35.9 % (36.0-48.0); HEMOGLOBIN 11.4 g/dL (12-16); IMMATURE GRANULOCYTES 0.3 % (0-5); LYMPHOCYTES 3.9 % (15-50); MCH 27.3 pg (26.0-34.0); MCHC 31.8 g/dL (31.0-37.0); MCV 85.9 fL (80.0-100.0); MEAN PLATELET VOLUME 10.1 fL (7.4-10.4); MONOCYTES 3.4 % (2-11); NEUTROPHILS 91.8 % (40-80); PLATELET COUNT 182 10x3/uL (130-400); RBC 4.18 10x6/uL (4.00-5.40); RDW 16.1 % (11.5-14.5); WBC 10.3 10x3/uL (4.8-10.8)
[2019-05-19 12:11] LABS: APTT 31.6 SECONDS (22.8-39.4); INR 1.05 (0.85-1.17); PROTIME 13.2 SECONDS (11.6-15.0)
[2019-05-19 12:17] LABS: ALBUMIN 3.2 g/dL (3.4-5.0); ALKALINE PHOSPHATASE 65 U/L (46-116); ALT (SGPT) 29 U/L (10-68); BILIRUBIN - TOTAL 0.39 mg/dL (0.2-1.3); CALC OSMOLALITY 283 mosm/kg (275-300); CARBON DIOXIDE 26.8 mmol/L (21.0-32.0); CHLORIDE - SERUM 104 mmol/L (98-107); CREATININE - SERUM 1.5 mg/dL (0.6-1.3); GLUCOSE 109 mg/dL (74-106); PROTEIN - SERUM 6.8 g/dL (6.4-8.2); SODIUM 141 mmol/L (136-145); UREA NITROGEN 19 mg/dL (7-18); eGFR NON AFRICAN AMERICAN 36 mL/min (90-120)
[2019-05-19 12:28] LABS: CKMB 0.9 U/L (0.0-3.6); CREATINE KINASE 137 UL (21-215); MAGNESIUM - SERUM 2.1 mg/dL (1.8-2.4); THYROID STIMULATING HORMONE 1.21 uIU/mL (0.36-3.74); TROPONIN-I 0.017 ng/mL (0.000-0.060)
--- NOTE | 2019-05-19 12:34 | NUR ---
PT RESTING WITH EYES CLOSED, BREATHING EVEN AND UNLABORED. PT AAO TO SELF, PLACE, AND TIME. SPO2 97% 2L/MIN. LIGHTS DIMMED PER PT REQUEST. PT DENIES FURTHER NEEDS AT THIS TIME.
[2019-05-19 14:26] LABS: APPEARANCE CLOUDY (CLEAR); BACTERIA MANY /hpf (NONE SEEN); BILIRUBIN NEGATIVE (NEGATIVE); COLOR STRAW (YELLOW); EPITHELIAL CELLS 0-5 /hpf (0-5); GLUCOSE NEGATIVE (NEGATIVE); KETONE NEGATIVE (NEGATIVE); NITRITE POSITIVE (NEGATIVE); PROTEIN NEGATIVE (NEGATIVE); RED CELLS - URINE 0-5 /hpf (0-5); SPECIFIC GRAVITY 1.005 (1.005-1.020); UROBILINOGEN NORMAL (NORMAL)
--- NOTE | 2019-05-19 14:30 | NUR ---
PT REQUESTING PAIN MED FOR HEADACHE, PT STATES 9/10 NUMERIC SCALE. EDP NOTIFIED. PT DENIES ANY FURTHER NEEDS, WILL CONTINUE TO MONITOR.
--- NOTE | 2019-05-19 14:50 | NUR ---
ORDER FOR PAIN MEDICATION RECEIVED FROM EDP. MEDICATION GIVEN PER JAN. PT RESTING WITH EYES CLOSED, BREATHING EVEN AND UNLABORED, SPO2 94%, 16 BREATHS PER MINUTE. PT DENIES FURTHER NEEDS AT THIS TIME. WILL CONTINUE TO MONITOR.
--- NOTE | 2019-05-19 17:03 | NUR ---
RECEIVED REPORT FROM SIVAN IN THE ED.
--- NOTE | 2019-05-19 17:41 | NUR ---
RECEIVED TO ROOM VIA STRETCHER FROM THE ED. ON 2L PER NC. BILATERAL CHEECKS ARE RED, PATIENT STATES THIS HAS BEEN THIS WAY JUST RECENTLY. ASSISTED PATIENT TO RESTROOM TO VOID AND HAS A BM ALSO. IV TO LEFT HAND WITH NS. WILL ADMIT.
--- NOTE | 2019-05-19 18:36 | NUR ---
CHEECKS NOT RED LOOKING. PATIENT IS SHAKING, WARM BLANKET GIVEN TO PATIENT.
--- NOTE | 2019-05-19 20:00 | NUR ---
ASSISTED PATIENT TO THE BSC. ISHAN SOLIS CHANGED THE PATIENT'S LINENS AND ASSISTED HER BACK TO BED.
--- NOTE | 2019-05-19 21:03 | NUR ---
PAGED DR. BENTLEY, LITHOGRAPHIC PLATE MAKER FOR DR. BARRAZA, IN REGARDS TO PATIENT'S MIRAPEX BEING ORDERED PER PATIENT REQUEST
--- NOTE | 2019-05-19 21:13 | NUR ---
SPOKE WITH DR. BENTLEY IN REGARDS TO MIRAPEX. DR. BENTLEY ORDERED PATIENT'S HOME DOSE
[2019-05-20 03:59] VITALS: BP 94/43
[2019-05-20 07:08] LABS: ANION GAP 12.4 mmol/L (8-16); CALCIUM 8.1 mg/dL (8.5-10.1); CARBON DIOXIDE 24.1 mmol/L (21.0-32.0); CREATININE - SERUM 1.5 mg/dL (0.6-1.3); POTASSIUM - SERUM 3.5 mmol/L (3.5-5.1)
[2019-05-20 07:16] LABS: BASOPHILS 0.1 % (0-2); EOSINOPHILS 0.6 % (0-7); HEMATOCRIT 32.8 % (36.0-48.0); HEMOGLOBIN 10.3 g/dL (12-16); IMMATURE GRANULOCYTES 0.2 % (0-5); MCH 27.2 pg (26.0-34.0); MCHC 31.4 g/dL (31.0-37.0); MCV 86.5 fL (80.0-100.0); MEAN PLATELET VOLUME 10.5 fL (7.4-10.4); MONOCYTES 3.3 % (2-11); NEUTROPHILS 89.8 % (40-80); PLATELET COUNT 180 10x3/uL (130-400); RBC 3.79 10x6/uL (4.00-5.40); RDW 16.5 % (11.5-14.5); WBC 10.6 10x3/uL (4.8-10.8)
--- NOTE | 2019-05-20 10:11 | NUR ---
RESTING QUIETLY IN BED, LIGHTS OFF EYES OPEN. RESPIRATIONS EVEN AND UNLABORED. O2 @ 2L VIA NC. TOLERATING WELL. NO COMPLAINTS VOICED OR SIGNS OF DISTRESS NOTED. FALL PRECAUTIONS IN PLACE. BED IN LOWEST POSTION, SIDERAILS UP X2. ASSISTED TO RESTROOM. STAND BY ONLY, TOLERATED WELL. CALL LIGHT AND BEDSIDE TABLE IN REACH. ROOM FREE OF CLUTTER. WILL CONTINUE TO MONITOR.
--- NOTE | 2019-05-20 11:06 | MORECARE ---
CASE MANAGEMENT DISCHARGE SUMMARY PATIENT: JOSE NEGRO UNIT: [id number] ADM DATE: 05/19/19 AGE: 73 : 47 SEX: F ROOM/BED: D.1206 AUTHOR: BONY,DOC PHYSICIAN: REFERRING PHYSICIAN: REINA BARRAZA MD DATE OF SERVICE: 05/20/19 Discharge Plan Patient Name: JOSE NEGRO [facility]:[place] : 1945 Planned Disposition: Home Anticipated Discharge Date: Discharge Date: Expected LOS: Initial Reviewer: [email or web address] Initial Review Date: 05/20/2019 Generated: 05/20/19 12:05 pm Comments DCP- Discharge Planning Updated by [email or web address]: Liv Orourke on 05/20/19 10:[address] Patient Name: JOSE NEGRO Admission Status: ER Accout number: [id number] Admission Date: 05-19-2019 : 1945 Admission Diagnosis: Attending: REINA BARRAZA Current LOS: 1 Anticipated DC Date: Planned Disposition: Home Primary Insurance: [facility] [employer] Discharge Planning Comments: CM MEET WITH PT AFTER GETTING VERBAL CONSENT TO CONTINUE WITH INITAL ASSESSMENT AND DISCHARGE NEEDS. CM EDUCATED ON ROLE OF CM AND THE SERVICES AVALIABLE SUCH HH, REHAB AND DME SERVICES. PT LIVES AT HOME WITH DAUGHTER. HAS HOME O2 AND NEBULIZER THRU [employer]. STATES HOME IS A SAFE DC PLAN. DENIES ANY CM NEEDS. CM WILL CONTINUE TO FOLLOW. Technician Trainee: Liv Orourke DCPIA - Discharge Planning Initial Assessment Updated by [email or web address]: Liv Orourke on 05/20/19 11:02 am * Is the patient Alert and Oriented? Yes * How many steps to enter\exit or inside your home? * PCP [facility] * Pharmacy [facility] * Preadmission Environment Home with Family * ADLs Independent * Equipment Oxygen * Other Equipment NEBULIZER * List name and contact numbers for known caregivers / representatives who currently or will assist patient after discharge: KRISHAN [phone] * Verbal permission to speak to the caregivers and representatives has been obtained from the patient. N/A * Additional services required to return to the preadmission environment? No * Can the patient safely return to the preadmission environment? Yes * Has this patient been hospitalized within the prior 30 days at any hospital? No Patient Name: JOSE NEGRO Page 44563 at 1106 All edits/amendments must be made on the electronic document DICTATION DATE: 05/20/191104 PROMOTIONS TEAM LEADER: MANNY 05/20/191104 RPT#: [id number] DC DATE: STATUS: ADM IN [facility] [address] [place] [address] END OF REPORT
[2019-05-20 13:03] VITALS: BMI 28.4
[2019-05-20 13:40] VITALS: BP 104/50
--- NOTE | 2019-05-20 15:00 | NUR ---
I have reviewed this patient and I concur with the Shift Assessment completed by the Licensed Practical Nurse today this shift.
[2019-05-20 19:33] VITALS: BP 143/53
--- NOTE | 2019-05-20 19:53 | NUR ---
EVENING ROUNDS MADE. PT STATES HAVING HEADACHE AND REQUESTED NORCO. INFORMED PT THAT IF TIME FOR PAIN MEDS I WOULD BRING THEM WITH NIGHT MEDS. PT AGREED WITH POC. DENIES FURTHER CONCERNS AT THIS TIME. BED LOWERED AND LOCKED. CL IN REACH. WILL CTM.
--- NOTE | 2019-05-20 20:19 | NUR ---
VITALS STABLE. PT TOOK MEDS WITHOUT DIFFICULTY. CLEAN GOWN PROVIDED TO PT. NO FURTHER CONCERNS AT THIS TIME. BED LOWERED AND LOCKED. CL IN REACH. WILL CTM.
--- NOTE | 2019-05-21 01:45 | NUR ---
I have reviewed this patient and I concur with the Shift Assessment completed by the Licensed Practical Nurse today this shift.
[2019-05-21 04:43] VITALS: BP 140/55
--- NOTE | 2019-05-21 07:00 | NUR ---
REPORT GIVEN FROM NIGHTSHIFT AND CARE ASSUMMED. SHE IS ALERT. SCD'S REMOVED TO GO TO BATHROOM THEN REAPPLIED. O2 ON. IV SITE IS CLEAR. CL IN REACH. NON-SKID SOCKS ON. SAFETY PRECATIONS IN PLACE AND PLAN OF CARE REVIEWED.
[2019-05-21 07:18] LABS: BASOPHILS 0.2 % (0-2); EOSINOPHILS 2.3 % (0-7); HEMATOCRIT 33.2 % (36.0-48.0); HEMOGLOBIN 10.1 g/dL (12-16); IMMATURE GRANULOCYTES 0.4 % (0-5); LYMPHOCYTES 8.5 % (15-50); MCH 26.6 pg (26.0-34.0); MCHC 30.4 g/dL (31.0-37.0); MCV 87.6 fL (80.0-100.0); MEAN PLATELET VOLUME 10.9 fL (7.4-10.4); MONOCYTES 5.7 % (2-11); NEUTROPHILS 82.9 % (40-80); PLATELET COUNT 168 10x3/uL (130-400); RBC 3.79 10x6/uL (4.00-5.40); RDW 16.6 % (11.5-14.5)
[2019-05-21 07:39] LABS: WBC 5.3 10x3/uL (4.8-10.8)
[2019-05-21 07:44] LABS: CALCIUM 8.6 mg/dL (8.5-10.1); CARBON DIOXIDE 24.4 mmol/L (21.0-32.0); CREATININE - SERUM 1.2 mg/dL (0.6-1.3); POTASSIUM - SERUM 3.4 mmol/L (3.5-5.1)
[2019-05-21 08:09] VITALS: BP 118/67; BP 121/67
--- NOTE | 2019-05-21 08:26 | NUR ---
PER DR. BARRAZA ORDER CHEST XRAY.
--- NOTE | 2019-05-21 08:30 | NUR ---
O2 SAT ON R/A IS 93%. SHE PUT HER O2 BACK ON STATED I HAD IT OFF TO CLEAN OUT MY NOSE. SHE HAS SOME EXP WHEEZES IN UPPER LOBES. RESP EVEN WITHOUT LABOR, ABLE TO TALK WITH NO ISSUES. STATES I AM AFRAID OF PNEUMONIA. I EXPLAINED NEW ORDER FOR CXR. CL IN REACH.
--- NOTE | 2019-05-21 11:45 | NUR ---
IV RESITED TO RIGHT INNER FOREARM 22 GUAGE X1 STICK WITH GOOD BLOOD RETURN AND FLUSHES WELL. IV TO LEFT FOREARM D/C WITH CATH INTACT DUE TO SLIGHT SWELLING AT SITE. PRESSURE APPLIED WITH MINIMAL BLEEDING NOTED.
--- NOTE | 2019-05-21 12:30 | NUR ---
ON CL NEEDING TO GO TO BATHROOM. UNPLUGGED SCD'S AND SHE TOOK SELF. DENIES ANY CURRENT C/O.
[2019-05-21 12:44] VITALS: BP 153/76
[2019-05-21] MEDS ORDERED: MACROBID100 MG PO (13:04)
--- NOTE | 2019-05-21 14:11 | MORECARE ---
CASE MANAGEMENT DISCHARGE SUMMARY PATIENT: JOSE NEGRO UNIT: [id number] ADM DATE: 05/19/19 AGE: 73 : 46 SEX: F ROOM/BED: D.1206 AUTHOR: BONY,DOC PHYSICIAN: REFERRING PHYSICIAN: REINA BARRAZA MD DATE OF SERVICE: 05/21/19 Discharge Plan Patient Name: JOSE NEGRO Facility: [facility]:[place] : 1945 Planned Disposition: Home Anticipated Discharge Date: Discharge Date: Expected LOS: Initial Reviewer: [id number] Initial Review Date: 05/20/2019 Generated: 05/21/19 3:11 pm Comments DCP- Discharge Planning Updated by [id number]: Liv Orourke on 05/20/19 10:[address] Patient Name: JOSE NEGRO Admission Status: ER Accout number: [id number] Admission Date: 05-19-2019 : 1945 Admission Diagnosis: Attending: REINA BARRAZA Current LOS: 1 Anticipated DC Date: Planned Disposition: Home Primary Insurance: [facility] MEDICARE SOLUTIONS Discharge Planning Comments: CM MEET WITH PT AFTER GETTING VERBAL CONSENT TO CONTINUE WITH INITAL ASSESSMENT AND DISCHARGE NEEDS. CM EDUCATED ON ROLE OF CM AND THE SERVICES AVALIABLE SUCH HH, REHAB AND DME SERVICES. PT LIVES AT HOME WITH DAUGHTER. HAS HOME O2 AND NEBULIZER THRU [facility]. STATES HOME IS A SAFE DC PLAN. DENIES ANY CM NEEDS. CM WILL CONTINUE TO FOLLOW. Quality Systems Specialist: Liv Orourke DCPIA - Discharge Planning Initial Assessment Updated by [email or web address]: Liv Orourke on 05/20/19 11:02 am * Is the patient Alert and Oriented? Yes * How many steps to enter\exit or inside your home? * PCP MADI * Pharmacy [facility] * Preadmission Environment Home with Family * ADLs Independent * Equipment Oxygen * Other Equipment NEBULIZER * List name and contact numbers for known caregivers / representatives who currently or will assist patient after discharge: KRISHAN [phone] * Verbal permission to speak to the caregivers and representatives has been obtained from the patient. N/A * Additional services required to return to the preadmission environment? No * Can the patient safely return to the preadmission environment? Yes * Has this patient been hospitalized within the prior 30 days at any hospital? No Coverage Notice Reviewer: [id number] - Beatrice Guerin Notice Issued Date-Time: 05/21/2019 13:45 Notice Type: IM Discharge Notice Notice Delivered To: Patient Relationship to Patient: Self Spin Table Operator Name: Delivery Method: HAND - Hand Delivered Lissette Days: Prior Verbal Notification: Recipient Understood Notice: Yes Recipient Signature: Yes Med Rec Note Co-signed by Attending: Coverage Notice Comment: Explained discharge IMM. Patient understood. Had no questions no concerns. Signed copy to the patient. Signed copy to the hard cover chart, Last DP export: 05/20/19 10:06 a Patient Name: JOSE NEGRO Page [phone] at 1411 All edits/amendments must be made on the electronic document DICTATION DATE: 05/21/19 1411 TOOL ROOM SUPERVISOR: MANNY 05/21/19 1411 RPT#: [id number] DC DATE: STATUS: ADM IN [facility] [address] [place] [address] END OF REPORT
--- NOTE | 2019-05-21 14:28 | MORECARE ---
CASE MANAGEMENT DISCHARGE SUMMARY PATIENT: JOSE NEGRO UNIT: [id number] ADM DATE: 05/19/19 AGE: 73 : 46 SEX: F ROOM/BED: D.1206 AUTHOR: BONY,DOC PHYSICIAN: REFERRING PHYSICIAN: REINA BARRAZA MD DATE OF SERVICE: 05/21/19 Discharge Plan Patient Name: JOSE NEGRO Facility: [facility]:[place] : 1945 Planned Disposition: Home Anticipated Discharge Date: Discharge Date: Expected LOS: Initial Reviewer: [email or web address] Initial Review Date: 05/20/2019 Generated: 05/21/19 3:27 pm Comments DCP- Discharge Planning Updated by [email or web address]: Beatrice Guerin on 05/21/19 1:[address] CM MET WITH THE PATIENT. SHE DENIES ANY NEEDS. HAS HOME O2. WILL HAVE TRANSPORTATION. DISCHARGE IMM SIGNED. NO QUESTIONS. PATIENT FELT A LITTLE NAUSEATED. CM ADVISED THE NURSE. DCP- Discharge Planning Updated by [id number]: Liv Orourke on 05/20/19 10:[address] Patient Name: JOSE NEGRO Admission Status: ER Accout number: [id number] Admission Date: 05-19-2019 : 1945 Admission Diagnosis: Attending: REINA BARRAZA Current LOS: 1 Anticipated DC Date: Planned Disposition: Home Primary Insurance: [facility] MEDICARE SOLUTIONS Discharge Planning Comments: CM MEET WITH PT AFTER GETTING VERBAL CONSENT TO CONTINUE WITH INITAL ASSESSMENT AND DISCHARGE NEEDS. CM EDUCATED ON ROLE OF CM AND THE SERVICES AVALIABLE SUCH HH, REHAB AND DME SERVICES. PT LIVES AT HOME WITH DAUGHTER. HAS HOME O2 AND NEBULIZER THRU [facility]. STATES HOME IS A SAFE DC PLAN. DENIES ANY CM NEEDS. CM WILL CONTINUE TO FOLLOW. Independent Film Maker: Liv Orourke DCPIA - Discharge Planning Initial Assessment Updated by [id number]: Liv Orourke on 05/20/19 11:02 am * Is the patient Alert and Oriented? Yes * How many steps to enter\exit or inside your home? * PCP MADI * Pharmacy [facility] * Preadmission Environment Home with Family * ADLs Independent * Equipment Oxygen * Other Equipment NEBULIZER * List name and contact numbers for known caregivers / representatives who currently or will assist patient after discharge: KRISHAN [phone] * Verbal permission to speak to the caregivers and representatives has been obtained from the patient. N/A * Additional services required to return to the preadmission environment? No * Can the patient safely return to the preadmission environment? Yes * Has this patient been hospitalized within the prior 30 days at any hospital? No Coverage Notice Reviewer: [id number] Jayce Guerin Notice Issued Date-Time: 05/21/2019 13:45 Notice Type: IM Discharge Notice Notice Delivered To: Patient Relationship to Patient: Self Double Needle Operator Name: Delivery Method: HAND - Hand Delivered Lissette Days: Prior Verbal Notification: Recipient Understood Notice: Yes Recipient Signature: Yes Med Rec Note Co-signed by Attending: Coverage Notice Comment: Explained discharge IMM. Patient understood. Had no questions no concerns. Signed copy to the patient. Signed copy to the hard cover chart, Last DP export: 05/21/19 1:11 p Patient Name: JOSE NEGRO Page [phone] at 1428 All edits/amendments must be made on the electronic document DICTATION DATE: 05/21/191426 MECHANICAL TEST TECHNICIAN: MANNY 05/21/191426 RPT#: [id number] DC DATE: STATUS: ADM IN [facility] [address] [place] [address] END OF REPORT
--- NOTE | 2019-05-21 15:15 | NUR ---
SITTING IN BED FAMIY HERE. SHE IS WAITING ON DISCHARGE. RESP EVEN WITHOUT LABOR AND O2 IS ON
--- NOTE | 2019-05-21 15:25 | NUR ---
AIDEN VICTORIA PROVIDED PER HER REQUEST. FAMILY HERE. NO OTHER NEEDS VOICED
--- NOTE | 2019-05-21 16:01 | NUR ---
DISCHARGE INSTRUCTIONS EXPLAINED TO HER AND COPY GIVEN TO HER WITH DAUGHTER AT BEDSIDE. SALINE LOCK D/C WITH CATH INTACT, MINIMAL BLEEDING FROM SITE. HEART MONITOR REMOVED AND RETURNED. ESCORTED VIA W/C TO PRIVATE AUTO. VSS NO C/O VOICED.
== END 2019-05-21 16:01 | disposition home or self-care (01) | DRG 689 ==
LOC: D.ER 11:17 → D.M3 15:57
PROVIDERS: Family Medicine; ADMIT Family Medicine; ATTEND Family Medicine
DX: N39.0 Urinary tract infection, site not specified (principal); G92 Toxic encephalopathy; R53.1 Weakness; I95.9 Hypotension, unspecified; D44.9 Neoplasm of uncertain behavior of unspecified endocrine gland; J44.9 Chronic obstructive pulmonary disease, unspecified; R51 Headache

== ENCOUNTER → 2019-08-05 13:05 | Outpatient (CLI) | payer MEDICARE, MEDICAID ==
[~2019-08-05 13:05] MED LIST changes: +MACROBID100 MG PO
== END | disposition home or self-care (01) ==
LOC: D.CT 13:00
PROVIDERS: ATTEND Internal Medicine Pulmonary Disease
DX: R91.1 Solitary pulmonary nodule (principal)

== ENCOUNTER 2019-12-24 11:01 | Inpatient (IN) | payer MEDICARE, MEDICAID ==
[~2019-12-24] VITALS: Ht 172.7 cm; Wt 86.6 kg
[2019-12-24 12:00] VITALS: BP 105/50
[2019-12-24] MEDS ORDERED: K-DUR20 MEQ PO (12:24)
[2019-12-24] MEDS ORDERED: IPRAT-ALBUT 0.5-3 ML UPD (12:25)
[2019-12-24] MEDS ORDERED: AMITRIPTYLINE H50 MG PO (12:28)
[2019-12-24] MEDS ORDERED: ALBUTEROL SULF8.5 GM INH (12:28)
[2019-12-24 12:30] LABS: BASOPHILS 0.1 % (0-2); EOSINOPHILS 2.5 % (0-7); HEMATOCRIT 39.3 % (36.0-48.0); HEMOGLOBIN 12.1 g/dL (12-16); IMMATURE GRANULOCYTES 0.4 % (0-5); LYMPHOCYTES 11.7 % (15-50); MCH 26.8 pg (26.0-34.0); MCHC 30.8 g/dL (31.0-37.0); MCV 86.9 fL (80.0-100.0); MEAN PLATELET VOLUME 9.5 fL (7.4-10.4); NEUTROPHILS 80.3 % (40-80); RBC 4.52 10x6/uL (4.00-5.40); RDW 17.9 % (11.5-14.5); WBC 7.9 10x3/uL (4.8-10.8)
--- NOTE | 2019-12-24 12:34 | NUR ---
RECIVED FROM DR OFFICE PER WC TO ROOM 2131. ADMIT ASSESSMENT PER RN
[2019-12-24 12:35] LABS: PLATELET COUNT 216 10x3/uL (130-400)
[2019-12-24 12:46] VITALS: BP 105/50; BMI 29.1
[2019-12-24] MEDS ORDERED: ULTRAM50 MG PO (12:46)
[2019-12-24 13:01] LABS: ANION GAP 12.8 mmol/L (8-16); CALCIUM 9.3 mg/dL (8.5-10.1); CARBON DIOXIDE 30.2 mmol/L (21.0-32.0); CREATININE - SERUM 1.1 mg/dL (0.6-1.3)
[2019-12-24 16:00] VITALS: BP 91/41
--- NOTE | 2019-12-24 17:23 | NUR ---
WITHOUT CHANGES OR DISTRESS NOTED AT THIS TIME. DENIES NEEDS
--- NOTE | 2019-12-24 19:42 | NUR ---
EVENING ROUNDS COMPLETE. PT SITTING UP IN BED. NO SIGNS OF DISTRESS. AAOX4. PT DENIES ANY PAIN OR NEEDS AT THIS TIME. CL IN REACH, BED IN LOWEST POSITION.
[2019-12-24 20:00] VITALS: BP 106/45
--- NOTE | 2019-12-24 22:28 | NUR ---
WHEN THIS NURSE ENTERED ROOM PT STATED "WHEN AM I GOING TO GET THE BLOOD THINNER THROUGH MY IV, DR. MOSES TOLD ME I WAS GOING TO GET IT AT 9 AT NIGHT AND 9 IN THE MORNING." THIS NURSE EXPLAINED TO PT I WAS UNAWARE OF ANY ORDERS FOR A BLOOD THINNER, BUT THAT I WOULD CHECK INTO IT. EMAR REVIEWED. NO ORDERS, WHEN PAPER CHART WAS CHECKED THIS NURSE NOTICED THAT THERE WAS A WRITTEN ORDER FOR HEPARIN 10CC IV. THIS NURSE CALLED DR. MOSES TO CLARIFY THE ORDER AND RELAY RESULTS OF SCAN. DR. MOSES ORDERED TO D/C THE HEPARIN ORDER SINCE PT IS TAKING ELIQUIS. ORDERS CARRIED OUT. EXPLAINED TO PT.
[2019-12-25] VITALS: BP 106/43
[2019-12-25 04:00] VITALS: BP 101/47
--- NOTE | 2019-12-25 06:16 | NUR ---
PT PIV TO LFA INFILTRATED, REMOVED WITH TIP INTACT. NEW 20G PIV STARTED IN RFA. PT TOLERATED WELL. PT DENIES ANY PAIN OR NEEDS AT THIS TIME. CL IN REACH, BED IN LOWEST POSITION.
[2019-12-25 08:00] VITALS: BP 83/45
[2019-12-25 12:00] VITALS: BP 85/46
[2019-12-25 13:24] VITALS: Ht 172.7 cm; Wt 86.6 kg
[2019-12-25 15:57] VITALS: BP 98/52
[2019-12-25] MEDS ORDERED: ASPIRIN EC81 M1 PO (17:47)
[2019-12-25] MEDS ORDERED: PLAVIX75 MG PO (17:47)
[2019-12-25] MEDS ORDERED: HYDROCODON-ACE1 EA10 PO (17:48)
--- NOTE | 2019-12-25 18:12 | NUR ---
DR MOSES TOLD NURSE TO HOLD PATIENT UNTIL TOMORROW. DO NOT DISCHARGE PER DR DE JESUS
--- NOTE | 2019-12-25 19:20 | NUR ---
PT ASKED FOR WATER AND PROVIDED BED LOW AND LOCKED CALL LIGHT WITH PT PT LOOKING FORWARD TO BEING DISCHARGED TOMORROW
[2019-12-25 20:00] VITALS: BP 93/52
[2019-12-26] VITALS: BP 98/48
[2019-12-26 04:00] VITALS: BP 112/54
--- NOTE | 2019-12-26 05:19 | NUR ---
I have reviewed this patient and I concur with the Shift Assessment completed by the Licensed Practical Nurse today this shift.
[2019-12-26 07:49] VITALS: BP 97/50
--- NOTE | 2019-12-26 09:51 | NUR ---
I CALLED DR MOSES OFFICE TO SEE IF PATIENT CAN BE DISCHARGED THERE ARE NO NOTES IN COMPUTER. I TALKED TO BIMAL AT THE OFFICE WHO STATES, "HE IS IN SURGERY THERE AND SHOULD COME BY AND SEE HER". SHE STATES ALSO, "HE LEFT HERE LAST NIGHT TO GO SEE HER".
--- NOTE | 2019-12-26 10:10 | MORECARE ---
CASE MANAGEMENT DISCHARGE SUMMARY PATIENT: JOSE NEGRO UNIT: [id number] ADM DATE: 12/24/19 AGE: 74 : 46 SEX: F ROOM/BED: D.5843 AUTHOR: BONY,DOC PHYSICIAN: REFERRING PHYSICIAN: NOELLE MOSES MD DATE OF SERVICE: 12/26/19 Discharge Plan Patient Name: JOSE NEGRO Facility: [facility]:[place] : 1945 Planned Disposition: Home Anticipated Discharge Date: 12/26/19 Discharge Date: Expected LOS: 2 Initial Reviewer: [id number] Initial Review Date: 12/26/2019 Generated: 12/26/19 11:10 am Comments DCP- Discharge Planning Updated by [id number]: Elias Puente on 12/26/19 9:[address] Patient Name: JOSE NEGRO Admission Status: Elective Accout number: [id number] Admission Date: 12-24-2019 : 1945 Admission Diagnosis: Attending: NOELLE MOSES Current LOS: 2 Anticipated DC Date: 12-26-2019 Planned Disposition: Home Primary Insurance: [facility] MEDICARE SOLUTIONS Discharge Planning Comments: CM MET WITH PT IN ROOM TO DISCUSS DISCHARGE PLANNING AND NEEDS. PT REPORTS LIVING AT HOME INDEPENDENTLY AND ALONE. PT HAS NEBULIZER, HOME AND PORTABLE OXYGEN FROM [facility]. PT HAS NO OUTSIDE SERVICES ASSISTING IN THE HOME. CM DISCUSSED AVAILABILITY OF HOME HEALTH, REHAB SERVICES AND MEDICAL EQUIPMENT. PT DENIES DISCHARGE NEEDS, REPORTS HER DAUGHTER WILL PICK HER UP FOR DISCHARGE HOME. IMPORTANT MESSAGE FROM MEDICARE PROVIDED AND EXPLAINED. Military Professional: Elias Puente DCPIA - Discharge Planning Initial Assessment Updated by [email or web address]: Elias Puente on 12/26/19 10:06 am * Is the patient Alert and Oriented? Yes * How many steps to enter\exit or inside your home? * PCP DR. BARRAZA * Pharmacy [facility] * Preadmission Environment Home Alone * ADLs Independent * Equipment Nebulizer Oxygen * Other Equipment HOME AND PORTABLE OXYGEN FROM [facility] * List name and contact numbers for known caregivers / representatives who currently or will assist patient after discharge: ADOLPH CHONG, ISMAEL, * Verbal permission to speak to the caregivers and representatives has been obtained from the patient. N/A * Community resources currently utilized None * Please name any agencies selected above. NONE * Additional services required to return to the preadmission environment? No * Can the patient safely return to the preadmission environment? Yes * Has this patient been hospitalized within the prior 30 days at any hospital? No Coverage Notice Reviewer: [id number] Jayce Puente Notice Issued Date-Time: 12/26/2019 9:55 Notice Type: IM Discharge Notice Notice Delivered To: Patient Relationship to Patient: Coil Cleaner Name: Delivery Method: HAND - Hand Delivered Lissette Days: Prior Verbal Notification: Recipient Understood Notice: Yes Recipient Signature: Yes Med Rec Note Co-signed by Attending: Coverage Notice Comment: Patient Name: JOSE NEGRO Page 18928 at 1010 All edits/amendments must be made on the electronic document DICTATION DATE: 12/26/19 1010 PARK MAINTENANCE TECHNICIAN: MANNY 12/26/19 1010 RPT#: [id number] DC DATE: STATUS: ADM IN [facility] [address] [place] [address] END OF REPORT
[2019-12-26 11:06] VITALS: BP 102/56
--- NOTE | 2019-12-26 15:12 | NUR ---
1509-WHILE DOING THE DISCHARGE PAPERWORK I SEE ON THE DISCHARGE EMAR THAT A SCRIPT WAS WRITTEN FOR NORCO. IT IS NOT ON THE PRINTER OR IN THE CHART. RUDY VILLAR CHECKED WITH THE PATIENT (I WAS RESPONDING TO THE CODE RED DRILL) AND THE PATIENT DOES NOT HAVE IT. I CALLED THE OFFICE TO SPEAK WITH DR MOORE AND THE NURSE SAID THAT THE PAITENT HAS ALREADY CALLED ABOUT IT. AWAITING CALL BACK.
--- NOTE | 2019-12-26 15:30 | NUR ---
DR BARRAZA STATES THAT PATIENT CAN COME BY AND GET WRITTEN SCRIPT BEFORE 5 OR HE WILL COME BY AFTER THAT.
--- NOTE | 2019-12-26 17:27 | NUR ---
DISCHARGE INSTRUCTION REVIEWED AND IV REMOVED. DRESSING TO SITE REPLACED DUE TO BLEEDING.
== END 2019-12-26 17:31 | disposition home or self-care (01) | DRG 300 ==
LOC: D.M2 11:01
PROVIDERS: ADMIT Surgery; ATTEND Surgery
DX: I80.01 Phlebitis and thrombophlebitis of superficial vessels of right lower extremity (principal); L97.909 Non-pressure chronic ulcer of unspecified part of unspecified lower leg with unspecified severity; J44.9 Chronic obstructive pulmonary disease, unspecified; R91.1 Solitary pulmonary nodule; I95.9 Hypotension, unspecified; I25.10 Atherosclerotic heart disease of native coronary artery without angina pectoris; I70.229 Atherosclerosis of native arteries of extremities with rest pain, unspecified extremity; E78.5 Hyperlipidemia, unspecified; I83.009 Varicose veins of unspecified lower extremity with ulcer of unspecified site; M54.31 Sciatica, right side; Z86.73 Personal history of transient ischemic attack (TIA), and cerebral infarction without residual deficits; Z87.891 Personal history of nicotine dependence

== ENCOUNTER 2020-02-01 00:31 | Inpatient (IN) | payer MEDICARE, MEDICAID ==
[~2020-02-01] VITALS: Ht 172.7 cm; Wt 83.2 kg
[2020-02-01] VITALS (9 sets, daily range): BP systolic 96–131; BP diastolic 49–74; Ht 172.7 cm; Wt 83.2 kg
--- NOTE | ~2020-02-01 | EC ---
PATIENT:JOSE NEGRO DATE OF SERVICE: 02/01/20 SEX: F MEDICAL RECORD: [id number] DATE OF : [birth year] LOCATION:D.M2 D.211 AGE OF PATIENT: 74 ADMISSION DATE: 02/01/20 REFERRING PHYSICIAN: INTERPRETING PHYSICIAN: LUIS CONTEH MD ECHOCARDIOGRAM REPORT ECHO CHARGES 4 ECHO COMPLETE Date: 02/01/20 CLINICAL DIAGNOSIS: [place] ECHOCARDIOGRAPHIC MEASUREMENTS (adult normal given) AC root (d.<3.7cm) 2.7 cm LV Septum d (<1.2 cm> 1.0 cm Valve Excursion 1.2 cm LV Septum (systole) 1.1 cm Left Atria (s.<4.0cm> 3.5 cm LVPW d(<1.2cm) 0.8 cm RV (d.<2.3cm) 3.2 cm LVPW (sytole) 1.3 cm LV diastole(<5.6CM) 5.7 cm MV E-F(>70mm/sec) cm LV systole 4.6 cm LVOT Diameter 1.9 cm MV exc.(>10mm) cm Est.ejection fraction (50-75%) % DOPPLER: LVIT cm/sec A 111 cm/sec E 78 cm/sec LA cm/sec RVSP 33.8 mmHg LVOT 94 cm/sec AOP1/2T m/s Asc. Ao 155 cm/sec RVOT 54 cm/sec RA cm/sec PA 82 cm/sec AV Gradient Peak 9.6 mmHg AV Mean 4.9 mmHg AV Area 1.8 cm MV Gradient Peak 9.2 mmHg MV Mean 3.5 mmHg MV Area cm COMMENTS: Wrapper Stemmer Operator: [facility] Upset Operator: 1 Dr. Conteh TAPE# PACS Pericardial Effusion N DATE OF SERVICE: FINDINGS: 1. Left ventricular chamber size is within normal limits. Left ventricular systolic function is normal at 50% to 55%. 2. Left atrium is within normal limits. Right atrium and right ventricular chamber sizes are mildly dilated. 3. Valvular structures have normal structure and motion. 4. Doppler interrogation reveals no significant valvular insufficiency or stenosis. ECHOCARDIOGRAM REPORT [id number] JOSE NEGRO 5. No evidence of pericardial effusion or left ventricular thrombus. TRANSINT:[id number] Voice Confirmation ID: [id number] DOCUMENT ID: [id number] LUIS CONTEH MD CC: [id number] DICTATION DATE: 02/01/20 1405 COAL TOWER OPERATOR: 02/01/20 1906 ADM IN [place] [address] [place] [id number]
--- NOTE | ~2020-02-01 | OP ---
PATIENT NAME: JOSE NEGRO MEDICAL RECORD: [id number] :[birth year] LOCATION:D.M2 D.2115 ADMISSION DATE:02/01/20 SURGEON: LUIS HERNANDEZ MD DATE OF OPERATION: 02/01/2020 PROCEDURES: 1. PTCA stent left circumflex. 2. PTCA stent RCA. 3. IFR left circumflex. 4. IFR RCA. 5. Left heart catheterization. 6. Selective coronary angiography. 7. Left ventriculogram. INDICATION: Angina and coronary artery disease. PROCEDURE IN DETAIL: After informed consent was obtained and after a detailed description of the risks, benefits as well as alternative therapies, the patient elected to proceed with angiogram and angioplasty. The right femoral area was prepped and draped in normal sterile fashion. Right femoral artery was cannulated via modified Seldinger technique with placement of 6-[place]izen [place] sheath. All catheters exchanged through this sheath. FINDINGS: Left ventriculogram was room performed in the standard 30-degree MCGARRY view reveals good cardiac wall motion, ejection fraction estimated 60%. SELECTIVE CORONARY ANGIOGRAPHY: 1. Left main is with no significant angiographic disease. 2. Left anterior descending has previously placed stents, these are widely patent with no significant restenosis. No disease elsewise throughout the LAD or its branches. 3. Left circumflex has a previously placed stent that is patent; however, there appears to be 70-75% stenosis at the ostium. IFR is abnormal. 4. The right coronary has previously placed stent in the mid vessel. This is widely patent; however, there appears to be 70+ percent stenosis proximal to this and IFR is abnormal. PTCA STENT OF THE RCA: The stent used was a 3.5 x 22 mm [place]. Result was 0% residual stenosis. PTCA STENT OF THE LEFT CIRCUMFLEX: The stent used was a 3.0 x 15 mm [place],. Result was 0% residual stenosis. OVERALL IMPRESSION: Successful percutaneous transluminal angioplasty stent of the left circumflex and RCA, both going from 70% to 75% initial stenosis to 0% residual. TRANSINT:[id number] Voice Confirmation ID: [id number] DOCUMENT ID: [id number] OPERATIVE REPORT [id number] JOSE NEGRO LUIS HERNANDEZ MD CC: [id number] DICTATION DATE: 02/01/20 144 ANNUAL GREENHOUSE MANAGER: 02/02/20 0236 ADM IN [facility] [address] [place] [address]
--- NOTE | ~2020-02-01 | HEMODYNAMI ---
PATIENT:JOSE NEGRO MEDICAL RECORD: [id number] : 47 LOCATION:[facility] D.[address] [facility]# [id number] ADMISSION DATE: 02/01/20 Generatedon:02/01/202014:40 Patient name: JOSE NEGRO Patient #: [id number] SSN: [id number] : 1945 Date of study: 02/01/2020 Page: Of Hemodynamic Procedure Report Patient Data Patient Demographics Procedure consent was obtained First Name: JOSE Gender: Female Last Name: MARKY : 1945 Middle Initial: KEHINDE Age: 74 year(s) Patient #: [id number] Race: SSN: [id number] Additional ID: [id number] Contact details Address: [address] [place] [address] State: [place] City: [place] Zip code: [address] Past Medical History Allergies: No known allergies Admission Admission Data Admission Date: 02/01/2020 Admission Time: 1:22 Arrival Date: 02/01/2020 Arrival Time: 1:22 Admit Source: Emergency Insurance Payor: Medicare department [facility] #: [id number] [facility] Height (in.): 67.72 BSA: 1.96 (m2) Height (cm.): 172 BMI: 28.06 (kg/m2) Weight (lbs.): 182.98 Weight (kg.): 83 Lab Results Lab Result Date: 02/01/2020 Lab Result Time: 0:00 Biochemistry Name Units Result Min Max BUN mg/dl 31 --(----)-* 7 18 Creatinine mg/dl 1.1 --(--*-)-- 0.6 1.3 CBC Name Units Result Min Max Hemoglobin g/dl 12.4 *-(----)-- 13.5 17.5 Procedure Procedure Types Cath Procedure Diagnostic Procedure [facility] w/Coronaries FFR/IVUS FFR Initial FFR Additional Sedation Charges Moderate Sedation up to 30 minutes PCI Procedure Coronary Stent Coronary Stent Initial x2 Hemochron ACT Test Procedure Description Procedure Date Procedure Date: 02/01/2020 Procedure Start Time: 14:11 Procedure End Time: 14:38 Procedure Staff Name Function Gen Conteh MD Performing Physician Quita Jeffries RT Monitor Evelyn Wren RT Scrub Qiana Lawson RN Nurse Procedure Data Cath Procedure Fluoroscopy Diagnostic fluoroscopy Total fluoroscopy Time: 5.8 time: 5.8 min min Diagnostic fluoroscopy Total fluoroscopy dose: 603 dose: 603 mGy mGy Contrast Material Contrast Material Type Amount (ml) Isovue 300 97 Entry Location Entry Primary Successful Side Size Upsize Upsize Entry Closure Succes sful Closure Location (Fr) 1 (Fr) 2 (Fr) Remarks Device Remarks Femoral Right 6 Fr Exoseal artery Short Estimated blood loss: 5 ml Diagnostic catheters Device Type Used For End Catheter Placement MULTIPACK Pigtail 5 Fr LV Angiography catheter MULTIPACK JL 4.0 5Fr Left Coronary catheter Angiography MULTIPACK 3DRC 5Fr Right Coronary catheter Angiography Procedure Complications No complications Procedure Medications Medication Administration Route Dosage Oxygen etCO2 Nasal cannula 2 l/min Lidocaine 2% added to field 20 Heparin Flush Bag added to field 2 bags (1000units/500ml NS) 0.9% NaCl I.V. 100 ml/hr Versed I.V. 1 mg Fentanyl I.V. 50 mcg Versed I.V. 1 mg Fentanyl I.V. 50 mcg Heparin Bolus I.V. 4000 units Hemodynamics Rest BSA: 1.96 (m2) HGB: 12.4 (g/dl) O2 Consumption: Estimated: 182.59 (ml/min) O2 Co nsumption indexed: Estimated:93.16 (ml/min/m) Heart Rate: 75 (bpm) Pressure Samples Time Site Value (mmHg) Purpose Heart Use Rate(bpm) 14:13 LV 82/11,19 Snapshot 74 Snapshots Pre Cath Intra NCS Post Cath Vital Signs Time Heart Resp SPO2 etCO2 NIBP (mmHg) Rhythm Pain Sedation Rate (ipm) (%) (mmHg) Status Level (bpm) 14:02:18 68 14 98 0 158/77(125) NSR 0 (11) 10(A) , No pain 14:07:17 63 12 93 0 Measuring NSR 0 (11) 10(A) , No pain 14:07:42 62 12 94 0 134/64(110) NSR 0 (11) 10(A) , No pain 14:11:57 63 16 94 0 122/59(94) NSR 0 (11) 10(A) , No pain 14:16:20 69 14 93 0 115/54(90) NSR 0 (11) 9(A) , No pain 14:20:38 68 15 95 0 134/63(98) NSR 0 (11) 9(A) , No pain 14:24:58 67 13 96 0 123/56(87) NSR 0 (11) 9(A) , No pain 14:29:16 69 14 96 0 138/69(107) NSR 0 (11) 9(A) , No pain 14:34:52 71 15 96 0 164/75(118) NSR 0 (11) 10(A) , No pain Medications Time Medication Route Dose Verified Delivered Reason Notes Effectiveness by by 14:04:02 Oxygen etCO2 2 Gen Buffie used for Nasal l/min Wero Lawson RN procedure cannula 14:04:09 Lidocaine 2% added 20ml Gen Gen for local to vial Wero Conteh MD anesthetic field 14:04:16 Heparin Flush added 2 Gen Gen used for Bag to bags Wero Conteh MD procedure (1000units/500ml field NS) 14:04:25 0.9% NaCl I.V. 100 Gen Gen used for ml/hr Wero Conteh MD procedure 14:07:07 Versed I.V. 1 mg Genvivek Matosie for sedation Wero Lawson RN 14:07:12 Fentanyl I.V. 50 Gen Buffie for sedation mcg Wero Lawson RN 14:11:59 Versed I.V. 1 mg Gen Buffie for sedation Wero Lawson RN 14:12:03 Fentanyl I.V. 50 Gen Matosie for sedation mcg Wero Lawson RN 14:23:33 Heparin Bolus I.V. 4000 Genvivek Matosie for verif ied units Wero Lawson RN anticoagulation with dr conteh Procedure Log Time Note 13:39:38 Diagnostic Cath Status : Urgent 13:40:07 Evelyn Wren RT(R) sent for patient. Start room use. 13:40:08 Time tracking: Regular hours (M-F 7:00 - 5:00) 13:40:15 Plan of Care:Hemodynamics will remain stable., Cardiac rhythm will remain stable., Comfort level will be maintained., Respiratory function will remain adequate., Patient/ family verbilizes understanding of procedure., Procedure tolerated without complication., Recovers from procedure without complications.. 13:41:06 Informed consent obtained and on chart 13:45:55 Arrival Date: 02/01/2020 1:22:00 AM 13:46:16 Admit Source: Emergency department 13:46:19 Insurance Payor : Medicare 13:46:25 Patient Height : 67.72 inches 13:46:28 Patient Weight : 182.98 lbs 13:47:39 Lab Result : Hemoglobin 12.4 g/dl 13:47:39 Lab Result : Creatinine 1.1 mg/dl 13:47:39 Lab Result : BUN 31 mg/dl 13:49:00 2) 60-89 Mildly reduced kidney function, and other findings (as for stage 1) point to kidney disease. 13:49:28 Maximum allowable contrast dose (3.7 X eGFR X 0.75)141 ml. 13:53:23 Patient received from Med II to CCL 1 Alert and oriented. Tansferred to table in Supine position. 13:53:24 Warm blankets applied, and pieter hugger turned on for patient comfort. 13:53:25 Correct patient and procedure confirmed by team. 13:53:26 ECG and BP/O2 sat monitors applied to patient. 14:00:59 Vital chart was started 14:01:00 Baseline sample Acquired. 14:01:03 Rhythm: sinus rhythm 14:01:07 Baseline sample Acquired. 14:01:14 Full Disclosure recording started 14:01:21 H&P Date Dictated: 02/01/2020 New H&P dictated by physician.. 14:01:23 Pre-procedure instructions explained to patient. 14:01:23 Pre-op teaching completed and patient verbalized understanding. 14:01:25 Family in patients room. 14:01:27 Patient NPO since Midnight. 14:02:42 Is the patient allergic to Iodine/contrast media? No. 14:02:44 Was the patient premedicated? Yes 14:02:46 Is patient on blood thinner?Yes 14:02:48 Patient diabetic? No. 14:02:50 Previous problem with sedation/anesthesia? No ? 14:02:52 Snore? Yes 14:02:59 Sleep apnea? No 14:03:00 Deviated septum? No 14:03:01 Opens mouth fully? Yes 14:03:05 Sticks out tongue? Yes 14:03:24 Airway obstruction? Yes copd,emphysema 14:03:28 Dentures? No ? 14:04:02 Oxygen 2 l/min etCO2 Nasal cannula was administered by Qiana Lawson RN; used for procedure; Verbal order read back and verified. 14:04:09 Lidocaine 2% 20ml vial added to field was administered by Gen Conteh MD; for local anesthetic; Verbal order read back and verified. 14:04:16 Heparin Flush Bag (1000units/500ml NS) 2 bags added to field was administered by Gen Conteh MD; used for procedure; Verbal order read back and verified. 14:04:25 0.9% NaCl 100 ml/hr I.V. was administered by Gen Conteh MD; used for procedure; Verbal order read back and verified. 14:05:15 Pre procedure: right dorsailis pedis pulse 2+ Normal; easily identifiable; not easily obliterated 14:05:17 Pre procedure: left dorsailis pedis pulse 2+ Normal; easily identifiable; not easily obliterated 14:05:20 Patient pain scale 0/10 ?. 14:05:29 IV patent on arrival in left forearm with 0.9% NaCl at [facility]. 14:05:32 Lab results completed and on chart. 14:05:39 Stress Test: no; N/A ? 14:05:50 Right groin area was prepped with chlora-prep and draped in sterile fashion 14:05:51 Alarms reviewed by R. N. 14:05:52 Sharps counted by scrub and verified by R.N. 14:06:11 Physician arrived 14:06:11 --------ALL STOP TIME OUT------ 14:06:12 Final Timeout: patient, procedure, and site verified with staff and physician. All members of the team are in agreement. 14:06:13 Right groin site verified by team. 14:06:16 Fire Safety Assessment: A--An alcohol-based skin anteseptic being used preoperatively., C--Open oxygen or nitrous oxide is being used., D--An ESU, laser, or fiber-optic light is being used. 14:06:19 Physical assessment completed. ASA score P 2 - A patient with mild systemic disease as per Gen Conteh MD. 14:06:23 Sedation plan: IV Moderate Sedation Medication:Versed, Fentanyl 14:07:07 Versed 1 mg I.V. was administered by Qiana Lawson RN; for sedation; Verbal order read back and verified. 14:07:12 Fentanyl 50 mcg I.V. was administered by Qiana Lawson RN; for sedation; Verbal order read back and verified. 14:07:19 Use device set Femoral Dx 14:07:20 ACIST Syringe (82384) opened to sterile field. 14:07:20 Bag Decanter (2002S) opened to sterile field. 14:07:20 Medline Cath Pack ([id number]) opened to sterile field. 14:07:21 ACIST Hand Control (28219) opened to sterile field. 14:07:22 ACIST Manifold (77393) opened to sterile field. 14:07:22 DIAGNOSTIC Multipack 5Fr catheter set ([id number]) opened to sterile field. 14:07:23 Tegaderm 4 x 4 (1626W) opened to sterile field. 14:07:24 EMERALD Guide Wire (983-765) opened to sterile field. 14:11:12 Procedure started. 14:11:21 Local anesthetic to right femoral artery with Lidocaine 2% by Gen Conteh MD.INITIAL ACCESS ONLY 14:11:32 A 6 Fr Short sheath was inserted into the Right Femoral artery 14:11:59 Versed 1 mg I.V. was administered by Qiana Lawson RN; for sedation; Verbal order read back and verified. 14:12:03 Fentanyl 50 mcg I.V. was administered by Qiana Lawson RN; for sedation; Verbal order read back and verified. 14:12:33 A MULTIPACK Pigtail 5 Fr catheter was advanced over the wire and used for LV Angiography. 14:13:20 LV hemodynamics recorded. 14:13:21 LV gram done using MCGARRY 14:13:24 Injector settings: Ml/sec: 5, Volume: 15, 14:13:36 EF : 60 % 14:13:56 Catheter removed. 14:14:03 A MULTIPACK JL 4.0 5Fr catheter was advanced over the wire and used for Left Coronary Angiography. 14:14:11 LCA angiography performed. 14:14:14 Injector settings: Ml/sec: 3, Volume: 6, 14:14:59 Catheter removed. 14:15:03 A MULTIPACK 3DRC 5Fr catheter was advanced over the wire and used for Right Coronary Angiography. 14:16:05 RCA angiography performed. 14:16:07 Injector settings: Ml/sec: 3, Volume: 6, 14:16:11 ACCDominant side:Right 14:16:11 Catheter removed. 14:16:40 SHEATH 6FR [place] (ALN986) opened to sterile field. 14:16:40 INFLATOR Merit BasixCompak (GX4224) opened to sterile field. 14:16:41 Patterson Verrata Plus pressure wire (63091W) opened to sterile field. 14:18:07 GUIDE 6FR AR 2.0 catheter ([id number]) opened to sterile field. 14:18:09 GUIDE 6FR XB 4.0 catheter ([id number]) opened to sterile field. 14:18:19 6 Fr xb4 guide catheter was inserted over the wire 14:18:24 FFR/IFR wire advanced. 14:19:45 Wire removed. 14:20:05 GUIDE 6FR XB 3.5 catheter ([id number]) opened to sterile field. 14:20:22 Guide catheter removed. 14:20:25 6 Fr xb 3.5 guide catheter was inserted over the wire 14:20:34 FFR/IFR wire advanced. 14:20:38 Baseline FFR 1. 14:22:26 pCirc lesion measured at 0.84 with IFR 14:23:33 Heparin Bolus 4000 units I.V. was administered by Qiana Lawson RN; for anticoagulation; verified with dr conteh Verbal order read back and verified. 14:23:56 ACC Pre-intervention HOLLY Flow is 3. 14:24:02 Pre PCI Site: Resighini pCirc has 70% stenosis. 14:24:22 Place stent Inflation Number: 1 A MARYSE RX 3.0 x 15 stent ([id number]) was prepped and advanced across the Prox CX 70. The stent was deployed at 13 ARLEN for 0:10 (min:sec) 0. 14:24:33 Pre PCI Site: Resighini pRCA has 70% stenosis. 14:25:12 Stent catheter was removed intact over wire. 14:25:14 Wire removed. 14:25:14 Guide catheter removed. 14:25:20 6 Fr ar 2 guide catheter was inserted over the wire 14:25:23 FFR/IFR wire advanced. 14:25:26 Baseline FFR 1. 14:27:44 Beabloo Verrata Plus pressure wire (67097F) opened to sterile field. 14:29:39 Wire advanced across lesion. 14:29:46 mRCA lesion measured at 0.85 with IFR 14:29:59 EXOSEAL 6Fr (EX600) opened to sterile field. 14:31:47 Place stent Inflation Number: 1 A MARYSE RX 3.5 x 22 stent ([id number]) was prepped and advanced across the Prox RCA 70. The stent was deployed at 21 ARLEN for 0:10 (min:sec) 0. 14:32:47 Stent catheter was removed intact over wire. 14:32:48 Wire removed. 14:32:49 Guide catheter removed. 14:32:58 ACC Post-intervention HOLLY Flow is 3. 14:33:40 Post PCI Site: Resighini pRCA has 0% stenosis. 14:35:03 Sheath removed intact; hemostasis achieved with Exoseal to the Right Femoral artery. 14:35:09 Procedure ended.(Physican Out) 14:35:52 Fluoroscopy time 05.80 minutes. 14:35:57 Fluoroscopy dose: 603 mGy 14:35:57 Flurop Dose total: 603 14:36:05 Dose Area Product 60808 mGy/cm. 14:36:09 Contrast amount:Isovue 300 97ml. 14:36:11 Maximum allowable dose exceeded? No. 14:36:12 Sharps counted by scrub and verified by R.N. 14:36:14 Insertion/operative site no bleeding no hematoma. 14:36:17 Post-op/insertion site Right Femoral artery dressed using a 4 x 4 and Tegaderm. 14:36:22 Post Procedure Pulses reassessed and unchanged 14:36:32 Post procedure rhythm: unchanged. 14:36:35 Estimated blood loss: 5 ml 14:36:37 Post procedure instruction explained to patient.Patient verbalizes understanding. 14:36:38 Patient needs reinforcement of post procedure teaching. 14:37:07 Procedure type changed to Cath procedure, Diagnostic procedure, LHC, LHC w/Coronaries, FFR/IVUS, FFR Initial, FFR Additional, Sedation Charges, Moderate Sedation up to 30 minutes, PCI procedure, Coronary Stent, Coronary Stent Initial x2, Hemochron ACT Test 14:37:18 ACT drawn and resulted at 233 seconds. (normal therapeutic range 180-240 seconds). 14:37:52 Procedure and supply charges have been captured, reviewed, submitted and are correct. 14:37:57 Procedure Complication : No complications 14:37:59 Vital chart was stopped 14:38:01 [facility] Findings: MVD- PCI performed (see procedure note) 14:38:06 Operative report dictated upon procedure completion. 14:38:07 See physician's report for complete and final results. 14:38:08 Report given to [facility]. 14:38:18 Patient transfered to [facility] with Stretcher. 14:38:21 Procedure ended. 14:38:21 Full Disclosure recording stopped 14:38:26 ACC-PCI Only Patient was given prescriptions, or instructed by Gen Conteh MD to start/continue the following medications upon discharge: Plavix 14:38:29 End room use (Document Last) 14:39:06 End room use (Document Last) 14:39:48 End room use (Document Last) Intervention Summary Intervention Notes Time ActionType Lesion and Equipment Used Action# Pressure Duration Attributes 14:24:22 Place stent Prox CX MARYSE RX 3.0 x 1 13 00:10 15 stent ([id number]) 14:31:47 Place stent Prox RCA MARYSE RX 3.5 x 1 21 00:10 22 stent ([id number]) Device Usage Item Name Manufacture Quantity Catalog Hospital Part Current Minimal Lot# / Number Charge Number Stock Stock Serial# Code ACIST Syringe Acist 1 91083 187277 487389 155607 20 (09531) Medical Systems Inc Bag Decanter Microtek 1 796075 39658 794534 5 () Medical Inc. Medline Cath Medline 1 [id number] 223597 56837 003300 5 Pack ([id number]) ACIST Hand Acist 1 58875 430354 998597 665990 5 Control Medical (54097) Systems Inc ACIST Manifold Acist 1 09532 709737 764074 747377 5 (74114) Medical Systems Inc DIAGNOSTIC Cardinal 1 KY9578 649484 30129 234309 30 Multipack 5Fr Health catheter set (LS7361) Tegaderm 4 x 4 3M 1 1626W 235348 586109 720164 5 (1626W) EMERALD Guide Cardinal 1 502-455 101232 170035 609730 5 Wire (502-455) Health MULTIPACK Cardinal 1 115394 5 Pigtail 5 Fr Health catheter MULTIPACK JL Cardinal 1 733942 5 4.0 5Fr Health catheter MULTIPACK 3DRC Cardinal 1 607929 5 5Fr catheter Health SHEATH 6FR Terumo 1 [id number] 569891 162021 869096 40 [place] (QGY189) INFLATOR Merit Merit 1 LA5677 891173 850923 407283 15 Arxan TechnologiesdcVibrant Energy (QW3041) Patterson Patterson 2 18180H 401697 610901814 907500 5 Verrata Plus pressure wire (44274K) GUIDE 6FR AR Medtronic 1 [id number] 405553 92878 234359 1 2.0 catheter (HT0QC12) GUIDE 6FR XB Cardinal 1 [id number] 655280 362599 475727 2 4.0 catheter Health (67017221) GUIDE 6FR XB Cardinal 1 [id number] 090514 519755 552790 2 3.5 catheter Health (90348214) MARYSE RX 3.0 x Medtronic 1 [id number] 794485 0788536 969107 5 [id number] 15 stent ([id number]) EXOSEAL 6Fr Cardinal 1 EX600 355889 777853 286235 10 (EX600) Health MARYSE RX 3.5 x Medtronic 1 [id number] 883283 2487740 567216 5 [id number] 22 stent ([id number]) Signature Audit [place] Stage Time Signature Unsigned Intra-Procedure 02/01/2020 Quita Jeffries 2:39:06 PM RT(R) Intra-Procedure 02/01/2020 Qiana Lawson RN 2:39:48 PM Intra-Procedure 02/01/2020 Gen Conteh 2:40:13 PM [place] [id number]
--- NOTE | ~2020-02-01 | HP ---
PATIENT: JOSE WATTS MEDICAL RECORD: [id number] ACCOUNT: [id number] LOCATION:[address] : [birth year] ADMISSION DATE: 02/01/20 PCP: REINA BARRAZA HISTORY AND PHYSICAL EXAMINATION DIAGNOSES: 1. Unstable angina class IV. 2. Coronary artery disease. 3. Previous multivessel percutaneous transluminal coronary angioplasty stent. 4. Smoking. 5. Chronic obstructive pulmonary disease. 6. Hyperlipidemia. 7. Family history of coronary artery disease. HISTORY OF PRESENT ILLNESS: Mrs. Watts is known to us with a past history of coronary artery disease, previous multivessel PTCA stent, who presents with 2 weeks of increasing episodes of chest pain just like that of her previous angina, worsening dramatically in the past 2 days with class IV symptomatology. Last cardiac intervention was March of last year. PHYSICAL EXAMINATION: CONSTITUTIONAL/GENERAL APPEARANCE: Well nourished, well developed, appears stated age. EYES: Lids and conjunctivae noninjected. No discharge. No pallor. ENT: Lips within normal limit. No cyanosis. No pallor. NECK: Carotid arteries, bilateral normal upstroke. No bruits. No thrills. No jugular venous pressure or distention. CERVICAL LYMPH NODES: Nontender. Nonenlarged. THYROID: Not enlarged. No nodules. CARDIOVASCULAR: Precordial exam, nondisplaced. No heaves or pericardial thrills. Rate and rhythm, regular. Heart sounds, normal S1, normal S2. No S3, no gallop, no rub. Systolic murmur, not heard. Diastolic murmur, not heard. RESPIRATORY: Respiratory effort, unlabored. Normal curvature. No thoracic deformity. No chest wall tenderness. Percussion, resonant. Auscultation, clear. No wheezes, no rales, no rhonchi. ABDOMEN: Soft, nondistended, nontender. No abdominal pain, no vomiting and normal appetite. MUSCULOSKELETAL: No joint tenderness, normal gait, normal tone. SKIN: Warm and dry. OVERALL IMPRESSION: Class IV angina just like that of her previous angina, rapidly escalating. We will proceed with coronary angiography. Further care depends upon the findings of the angiography. TRANSINT:[id number] Voice Confirmation ID: [id number] DOCUMENT ID: [id number] HISTORY AND PHYSICAL [id number] JOSE WATTS LUIS HERNANDEZ MD CC: [id number] DICTATION DATE: 02/01/20 1009 CLINICAL DOCUMENTATION CONSULTANT: 02/01/20 1206 ADM IN [place] [id number] [place] [id number]
[~2020-02-01 00:31] MED LIST changes: +ALBUTEROL SULF8.5 GM INH; +AMITRIPTYLINE H50 MG PO; +HYDROCODON-ACE1 EA10 PO; +IPRAT-ALBUT 0.5-3 ML UPD; +K-DUR20 MEQ PO
[2020-02-01 00:43] LABS: BASOPHILS 0.2 % (0-2); EOSINOPHILS 2.2 % (0-7); HEMATOCRIT 39.3 % (36.0-48.0); HEMOGLOBIN 12.4 g/dL (12-16); IMMATURE GRANULOCYTES 0.2 % (0-5); LYMPHOCYTES 20.2 % (15-50); MCHC 31.6 g/dL (31.0-37.0); MCV 85.6 fL (80.0-100.0); MEAN PLATELET VOLUME 10.2 fL (7.4-10.4); MONOCYTES 5.4 % (2-11); NEUTROPHILS 71.8 % (40-80); PLATELET COUNT 223 10x3/uL (130-400); RBC 4.59 10x6/uL (4.00-5.40); RDW 16.4 % (11.5-14.5); WBC 6.3 10x3/uL (4.8-10.8)
[2020-02-01] MEDS ORDERED: LASIX20 MG PO (00:46)
[2020-02-01] MEDS ORDERED: FUROSEMIDE40 MG PO (00:46)
[2020-02-01 00:56] LABS: APTT 32.2 SECONDS (22.8-39.4); INR 0.95 (0.85-1.17); PROTIME 12.7 SECONDS (11.6-15.0)
[2020-02-01 01:00] LABS: CALC OSMOLALITY 287 mosm/kg (275-300); CALCIUM 8.8 mg/dL (8.5-10.1); CARBON DIOXIDE 25.1 mmol/L (21.0-32.0); CHLORIDE - SERUM 105 mmol/L (98-107); CREATININE - SERUM 1.1 mg/dL (0.6-1.3); GLUCOSE 137 mg/dL (74-106); POTASSIUM - SERUM 3.4 mmol/L (3.5-5.1); SODIUM 140 mmol/L (136-145); UREA NITROGEN 31 mg/dL (7-18); eGFR NON AFRICAN AMERICAN 51 mL/min (90-120)
[2020-02-01 01:09] LABS: ALBUMIN 3.5 g/dL (3.4-5.0); ALKALINE PHOSPHATASE 68 U/L (30-120); ALT (SGPT) 30 U/L (10-68); BILIRUBIN - TOTAL 0.19 mg/dL (0.2-1.3); CKMB 3.3 U/L (0.0-3.6); CREATINE KINASE 214 UL (21-215); MAGNESIUM - SERUM 1.8 mg/dL (1.8-2.4); PROTEIN - SERUM 7.2 g/dL (6.4-8.2); TROPONIN-I < 0.017 ng/mL (0.000-0.060)
--- NOTE | 2020-02-01 04:38 | NUR ---
PATIENT TO CT VIA STRETCHER WITH ORTHODONTIC ASSISTANT
--- NOTE | 2020-02-01 05:48 | NUR ---
PT TO ROOM 2115 VIA STRETCHER ACCOMPANIED BY HOSPITAL STAFF.
[2020-02-01 07:19] LABS: CKMB 2.7 U/L (0.0-3.6); CREATINE KINASE 186 UL (21-215); TROPONIN-I < 0.017 ng/mL (0.000-0.060)
--- NOTE | 2020-02-01 16:54 | MORECARE ---
CASE MANAGEMENT DISCHARGE SUMMARY PATIENT: JOSE NEGRO UNIT: [id number] ADM DATE: 02/01/20 AGE: 74 : 46 SEX: F ROOM/BED: D.9575 AUTHOR: BONY,DOC PHYSICIAN: REFERRING PHYSICIAN: LIUS HERNANDEZ MD DATE OF SERVICE: 02/01/20 Discharge Plan Patient Name: JOSE NEGRO Facility: [facility]:[place] : 1945 Planned Disposition: Anticipated Discharge Date: Discharge Date: Expected LOS: Initial Reviewer: [email or web address] Initial Review Date: 02/01/2020 Generated: 02/01/20 5:54 pm Comments DCP- Discharge Planning Updated by [email or web address]: Cleo Macedo on 02/01/20 3:[address] Patient Name: JOSE NEGRO Admission Status: ER Accout number: [id number] Admission Date: 02-01-2020 : 1945 Admission Diagnosis: Attending: DEMETRI HERNANDEZ Current LOS: 1 Anticipated DC Date: Planned Disposition: Primary Insurance: [facility] MEDICARE SOLUTIONS Discharge Planning Comments: CM met with patient to complete initial dc planning assessment. CM educated patient on the CM role and verbal consent given by patient to complete assessment. Patient lives at home alone where she is independent with her care. At discharge patient plans to return home and feels this is a safe discharge. CM discussed availability of home health, rehab services, and medical equipment. Her daughter will be her bottom hoop driver home. Patient has a nebulizer and home o2/ portable 02 ( [facility]) Patient denied known discharge needs at this time. CM will continue to follow and will assist as needed with dc plans/needs. Security Strategist: Cleo Macedo DCPIA - Discharge Planning Initial Assessment Updated by [email or web address]: Cleo Macedo on 02/01/20 4:49 pm * Is the patient Alert and Oriented? Yes * How many steps to enter\exit or inside your home? * PCP MADI * Pharmacy [facility] * Preadmission Environment Home Alone * ADLs Independent * Other Equipment HOME / PORTABLE 02 WITH [employer], WALKER, CANE * List name and contact numbers for known caregivers / representatives who currently or will assist patient after discharge: KRISHAN CHONG - ELDA - [phone] * Verbal permission to speak to the caregivers and representatives has been obtained from the patient. Yes * Community resources currently utilized None * Additional services required to return to the preadmission environment? No * Can the patient safely return to the preadmission environment? Yes * Has this patient been hospitalized within the prior 30 days at any hospital? No Patient Name: JOSE NEGRO Page [phone] at 1654 All edits/amendments must be made on the electronic document DICTATION DATE: 02/01/201653 ORNAMENTAL IRON WORKER: MANNY 02/01/201653 RPT#: [id number] DC DATE: STATUS: ADM IN [facility] [address] [place] [address] END OF REPORT
--- NOTE | 2020-02-01 22:50 | NUR ---
INITIAL ROUNDS COMPLETED AT 1915 HRS. PT DENIED ANY DISCOMFORT. ASSESSMENT COMPLETED AT 1950 HRS. VSS. ALERT AND ORIENTED TO PERSON, PLACE AND TIME. BEVERLY. IV TO LFA OCCLUDED. DC'D WITH CATHETER INTACT. LUNGS CTA. R GROIN CLEAN, DRY AND INTACT WITHOUT SWELLING, BLEEDING OR BRUISING. PALPABLE PEDAL PULSES. HAS C/O CP AT 2020 HRS. STATES 8/10. NEW IV PLACED #22 TO R HAND WITH ATTEMPT X2. MORPHINE 4MG SIVP GIVEN AT 2039 HRS. PT CURRENTLY STATES ZERO PAIN. SR UP X2,CALL LIGHT WITHIN REACH.
[2020-02-02] VITALS: BP 114/53
--- NOTE | 2020-02-02 00:26 | NUR ---
NO CHANGES TO R GROIN NOTED. PT DENIES ANY DISCOMFORT. SR UP X1,CALL LIGHT WITHIN REACH.
--- NOTE | 2020-02-02 02:21 | NUR ---
PT SITTING UP IN A CHAIR. DENEIS ANY DISCOMFORT. CALL LIGHT WITHIN REACH.
--- NOTE | 2020-02-02 04:19 | NUR ---
NO CHANGES TO R GROIN NOTED. PALPALBLE PEDAL PULSES. DENIES ANY DISCOMFORT. CALL LIGHT WITHIN REACH.
[2020-02-02 05:41] LABS: BASOPHILS 0.2 % (0-2); EOSINOPHILS 2.7 % (0-7); HEMATOCRIT 37.2 % (36.0-48.0); HEMOGLOBIN 11.3 g/dL (12-16); IMMATURE GRANULOCYTES 0.2 % (0-5); LYMPHOCYTES 15.3 % (15-50); MCH 26.5 pg (26.0-34.0); MCHC 30.4 g/dL (31.0-37.0); MCV 87.3 fL (80.0-100.0); MEAN PLATELET VOLUME 10.2 fL (7.4-10.4); NEUTROPHILS 76.6 % (40-80); PLATELET COUNT 191 10x3/uL (130-400); RBC 4.26 10x6/uL (4.00-5.40); RDW 16.5 % (11.5-14.5)
--- NOTE | 2020-02-02 06:19 | NUR ---
VSS THROUGHOUT NIGHT. SR PER CM. NO CHAGES TO R ELIZABETH NOTE. NO CP SINCE MORPHINE ADMINISTRATION EARLIER IN SHIFT. NEEDS MET; WILL CONTINUE TO MONITOR.
[2020-02-02 06:51] LABS: ALBUMIN 3.2 g/dL (3.4-5.0); ANION GAP 10.6 mmol/L (8-16); BILIRUBIN - TOTAL 0.21 mg/dL (0.2-1.3); CALCIUM 8.5 mg/dL (8.5-10.1); CARBON DIOXIDE 25.5 mmol/L (21.0-32.0); CREATININE - SERUM 1.1 mg/dL (0.6-1.3); PROTEIN - SERUM 6.8 g/dL (6.4-8.2)
[2020-02-02 06:52] LABS: POTASSIUM - SERUM 4.1 mmol/L (3.5-5.1)
--- NOTE | 2020-02-02 07:57 | NUR ---
TELEMETRY SR. RIGHT GROIN STABLE. UP IN CHAIR WITH CALL LIGHT IN REACH. WILL CONT. PLAN OF CARE.
[2020-02-02 08:34] VITALS: BP 162/65
--- NOTE | 2020-02-02 09:24 | MORECARE ---
CASE MANAGEMENT DISCHARGE SUMMARY PATIENT: JOSE NEGRO UNIT: [id number] ADM DATE: 02/01/20 AGE: 74 : 46 SEX: F ROOM/BED: D.6440 AUTHOR: BONY,DOC PHYSICIAN: REFERRING PHYSICIAN: LUIS HERNANDEZ MD DATE OF SERVICE: 02/02/20 Discharge Plan Patient Name: JOSE NEGRO Facility[facility]:[place] : 1945 Planned Disposition: Home Anticipated Discharge Date: 02/02/20 Discharge Date: Expected LOS: 1 Initial Reviewer: [email or web address] Initial Review Date: 02/01/2020 Generated: 02/02/20 10:23 am Comments DCP- Discharge Planning Updated by [email or web address]: Elias Puente on 02/02/20 8:[address] Patient Name: JOSE NEGRO Encounter No: [id number] : 1945 Primary Insurance: [facility] [employer] Anticipated DC Date: 02-02-2020 Planned Disposition: Home DCP follow-up note: CM MET WITH PT IN ROOM TO DISCUSS DISCHARGE NEEDS AND PLANNING. CM DISCUSSED AVAILABILITY OF HOME HEALTH, REHAB SERVICES AND MEDICAL EQUIPMENT. PT DENIES DISCHARGE NEEDS. SISTER TO TRANSPORT HOME AT DISCHARGE. IMPORTANT MESSAGE FROM MEDICARE PROVIDED AND EXPLAINED. BENITA Mueller DCP- Discharge Planning Updated by [email or web address]: Cleo Macedo on 02/01/20 3:[address] Patient Name: JOSE NEGRO Admission Status: ER Accout number: [id number] Admission Date: 02-01-2020 : 1945 Admission Diagnosis: Attending: DEMETRI HERNANDEZ Current LOS: 1 Anticipated DC Date: Planned Disposition: Primary Insurance: [facility] [employer] SOLUTIONS Discharge Planning Comments: CM met with patient to complete initial dc planning assessment. CM educated patient on the CM role and verbal consent given by patient to complete assessment. Patient lives at home alone where she is independent with her care. At discharge patient plans to return home and feels this is a safe discharge. CM discussed availability of home health, rehab services, and medical equipment. Her daughter will be her local bulk driver home. Patient has a nebulizer and home o2/ portable 02 ( [employer]) Patient denied known discharge needs at this time. CM will continue to follow and will assist as needed with dc plans/needs. Tumbler Dyeing Machine Operator: Cleo Macedo DCPIA - Discharge Planning Initial Assessment Updated by [email or web address]: Cleo Macedo on 02/01/20 4:49 pm * Is the patient Alert and Oriented? Yes * How many steps to enter\exit or inside your home? * PCP [facility] * Pharmacy [facility] * Preadmission Environment Home Alone * ADLs Independent * Other Equipment HOME / PORTABLE 02 WITH [employer], WALKER, CANE * List name and contact numbers for known caregivers / representatives who currently or will assist patient after discharge: KRISHAN CHONG - [facility] - [phone] * Verbal permission to speak to the caregivers and representatives has been obtained from the patient. Yes * Community resources currently utilized None * Additional services required to return to the preadmission environment? No * Can the patient safely return to the preadmission environment? Yes * Has this patient been hospitalized within the prior 30 days at any hospital? No Coverage Notice Reviewer: [email or web address] Jayce Puente Notice Issued Date-Time: 02/02/2020 9:15 Notice Type: IM Discharge Notice Notice Delivered To: Patient Relationship to Patient: Nanoelectronics Engineer Name: Delivery Method: HAND - Hand Delivered Lissette Days: Prior Verbal Notification: Recipient Understood Notice: Yes Recipient Signature: Yes Med Rec Note Co-signed by Attending: Coverage Notice Comment: Last DP export: 02/01/20 3:54 pm Patient Name: JOSE NEGRO Page [id number] at 0924 All edits/amendments must be made on the electronic document DICTATION DATE: 02/02/20922 NURSING SERVICE DIRECTOR: MANNY 02/02/20922 RPT#: [id number] DC DATE: STATUS: ADM IN [facility] [address] [place] [address] END OF REPORT
--- NOTE | 2020-02-02 09:34 | NUR ---
IV AND TELEMETRY DCD. DC PLANS GIVEN. UNDERSTANDING VOICED. ESCORTED TO CAR BY W/C.
== END 2020-02-02 09:35 | disposition home or self-care (01) | DRG 247 ==
LOC: D.ER 00:31 → D.M2 01:22
PROVIDERS: Family Medicine; ADMIT Internal Medicine Interventional Cardiology; ATTEND Internal Medicine Interventional Cardiology
PROC: 4A023N7 Measurement of Cardiac Sampling and Pressure, Left Heart, Percutaneous Approach (ICD-10-PCS; 2020-02-01)
PROC: B2111ZZ Fluoroscopy of Multiple Coronary Arteries using Low Osmolar Contrast (ICD-10-PCS; 2020-02-01)
PROC: B2151ZZ Fluoroscopy of Left Heart using Low Osmolar Contrast (ICD-10-PCS; 2020-02-01)
PROC: 027135Z Dilation of Coronary Artery, Two Arteries with Two Drug-eluting Intraluminal Devices, Percutaneous Approach (ICD-10-PCS; principal; 2020-02-01 13:40)
PROC: 4A033BC Measurement of Arterial Pressure, Coronary, Percutaneous Approach (ICD-10-PCS; 2020-02-01 13:40)
DX: I25.110 Atherosclerotic heart disease of native coronary artery with unstable angina pectoris (principal); J44.9 Chronic obstructive pulmonary disease, unspecified; E78.5 Hyperlipidemia, unspecified; Z86.73 Personal history of transient ischemic attack (TIA), and cerebral infarction without residual deficits

== ENCOUNTER → 2020-02-20 13:30 | Outpatient (CLI) | payer MEDICARE, MEDICAID ==
[2020-02-01 10:08] VITALS: BMI 27.8
[~2020-02-20 13:30] MED LIST changes: +FUROSEMIDE40 MG PO; +LASIX20 MG PO
== END | disposition home or self-care (01) ==
LOC: D.US 13:30
PROVIDERS: ATTEND Surgery
DX: M79.604 Pain in right leg (principal)

== ENCOUNTER 2020-04-28 11:30 | Outpatient (CLI) | payer MEDICARE, MEDICAID ==
[2020-02-01 10:08] VITALS: BMI 27.8
== END 2020-04-28 12:30 | disposition home or self-care (01) ==
LOC: D.MAMMO 11:30
PROVIDERS: ATTEND Family Medicine
DX: Z12.31 Encounter for screening mammogram for malignant neoplasm of breast (principal)

== ENCOUNTER → 2020-05-05 09:53 | Outpatient (CLI) | payer MEDICARE, MEDICAID ==
[2020-02-01 10:08] VITALS: BMI 27.8
== END | disposition home or self-care (01) ==
LOC: D.HCCARDIO 09:30
PROVIDERS: ATTEND Internal Medicine Cardiovascular Disease
DX: I25.10 Atherosclerotic heart disease of native coronary artery without angina pectoris (principal)

== ENCOUNTER 2020-06-08 11:05 | Inpatient (IN) | payer MEDICARE, MEDICAID ==
[2020-06-08] VITALS (8 sets, daily range): BP systolic 90–127; BP diastolic 50–66; Ht 175.3 cm; Wt 85.1 kg
[~2020-06-08] VITALS: Ht 175.3 cm; Wt 85.1 kg
[2020-06-08] MEDS ORDERED: MIRAPEX0.5 MG PO (11:38)
[2020-06-08] MEDS ORDERED: RANEXA500 MG PO (11:41)
[2020-06-08] MEDS ORDERED: SYMBICORT 16010.2 GM INH (11:41)
[2020-06-08] MEDS ORDERED: VOLTAREN100 GM TOPICAL (11:42)
[2020-06-08] MEDS ORDERED: ZYRTEC10 MG PO (11:42)
[2020-06-08 12:22] LABS: CALC OSMOLALITY 281 mosm/kg (275-300); CARBON DIOXIDE 31.1 mmol/L (21.0-32.0); CHLORIDE - SERUM 104 mmol/L (98-107); CREATININE - SERUM 1.3 mg/dL (0.6-1.3); GLUCOSE 101 mg/dL (74-106); POTASSIUM - SERUM 3.8 mmol/L (3.5-5.1); SODIUM 140 mmol/L (136-145); UREA NITROGEN 21 mg/dL (7-18); eGFR NON AFRICAN AMERICAN 42 mL/min (90-120)
[2020-06-08 12:26] LABS: INR 0.92 (0.85-1.17); PROTIME 12.3 SECONDS (11.6-15.0)
[2020-06-08 12:27] LABS: APTT 34.9 SECONDS (22.8-39.4); HEMATOCRIT 41.8 % (36.0-48.0); HEMOGLOBIN 13.2 g/dL (12-16); LYMPHOCYTES 10.6 % (15-50); MCH 27.8 pg (26.0-34.0); MCHC 31.6 g/dL (31.0-37.0); MEAN PLATELET VOLUME 9.3 fL (7.4-10.4); NEUTROPHILS 81.6 % (40-80); PLATELET COUNT 227 10x3/uL (130-400); RBC 4.75 10x6/uL (4.00-5.40); RDW 16.8 % (11.5-14.5); WBC 6.3 10x3/uL (4.8-10.8)
[2020-06-08 12:41] LABS: ALBUMIN 3.6 g/dL (3.4-5.0); ALKALINE PHOSPHATASE 78 U/L (30-120); ALT (SGPT) 24 U/L (10-68); BILIRUBIN - TOTAL 0.42 mg/dL (0.2-1.3); CKMB 3.4 U/L (0.0-3.6); CREATINE KINASE 135 UL (21-215); PRO BNP 140 pg/mL (0-125); PROTEIN - SERUM 7.6 g/dL (6.4-8.2); TROPONIN-I < 0.017 ng/mL (0.000-0.060)
[2020-06-08 12:54] LABS: D-DIMER-QUANTITATIVE 3.23 ug/mLFEU (0.20-0.54)
--- NOTE | 2020-06-08 12:55 | NUR ---
ERP INFORMED OF ELEVATED D-DIMMER OF 3.23
--- NOTE | 2020-06-08 16:48 | NUR ---
ICE CHIPS PROVIDED.
--- NOTE | 2020-06-08 18:48 | NUR ---
ATTEMPTED TO CALL REPORT. UNABLE DUE TO A PATIENT IS STILL IN THE ROOM AND IT HAS NOT BEEN CLEANED.
--- NOTE | 2020-06-08 20:25 | NUR ---
PT IN BED RESTING COMFORTABLY. NO ACUTE DISTRESS NOTED, NO NEEDS EXPRESSED A THIS TIME. WILL CONTINUE TO MONITOR.
[2020-06-09 06:28] LABS: HEMATOCRIT 41.9 % (36.0-48.0); HEMOGLOBIN 13.2 g/dL (12-16); LYMPHOCYTES 14.6 % (15-50); MCH 27.8 pg (26.0-34.0); MCHC 31.5 g/dL (31.0-37.0); MCV 88.4 fL (80.0-100.0); MEAN PLATELET VOLUME 9.5 fL (7.4-10.4); NEUTROPHILS 75.3 % (40-80); PLATELET COUNT 203 10x3/uL (130-400); RBC 4.74 10x6/uL (4.00-5.40)
[2020-06-09 06:29] LABS: WBC 4.4 10x3/uL (4.8-10.8)
[2020-06-09 06:42] LABS: ALBUMIN 3.3 g/dL (3.4-5.0); BILIRUBIN - TOTAL 0.44 mg/dL (0.2-1.3); CALCIUM 8.7 mg/dL (8.5-10.1); CARBON DIOXIDE 26.7 mmol/L (21.0-32.0); CREATININE - SERUM 1.1 mg/dL (0.6-1.3); POTASSIUM - SERUM 3.7 mmol/L (3.5-5.1); PROTEIN - SERUM 7.2 g/dL (6.4-8.2)
--- NOTE | 2020-06-09 13:39 | NUR ---
PT RESULTED -COVID, INFORMED. REPORT GIVEN DUE TO PT MOVING TO ROOM 2111 NOW.
[2020-06-09 15:00] VITALS: BP 115/60
[2020-06-09 20:00] VITALS: BP 119/59
--- NOTE | 2020-06-09 20:11 | NUR ---
PATIENT IS RESTING COMFORTABLY IN BED. SHE IS ALERT AND ORIENTED. SHE IS ON OXYGEN, NASAL CANULA. WE WILL CONTINUE TO MONITOR HER RESPIRATORY STATUS.
[2020-06-10] VITALS: BP 114/61
[2020-06-10 04:00] VITALS: BP 122/82
--- NOTE | 2020-06-10 04:11 | NUR ---
PATIENT IS AWAKE RESTING COMFORTABLY IN BED. SHE IS ON 2 LITERS NASAL CANULA. SHE IS ON TELEMETRY. SHE GET'S UP A KHUSHBU TO THE BATHROOM.
[2020-06-10 05:51] LABS: ANION GAP 10.2 mmol/L (8-16); CALCIUM 8.8 mg/dL (8.5-10.1); CARBON DIOXIDE 28.6 mmol/L (21.0-32.0); CREATININE - SERUM 1.2 mg/dL (0.6-1.3); POTASSIUM - SERUM 3.8 mmol/L (3.5-5.1)
[2020-06-10 06:05] LABS: HEMATOCRIT 40.6 % (36.0-48.0); HEMOGLOBIN 12.5 g/dL (12-16); LYMPHOCYTES 25.5 % (15-50); MCH 27.2 pg (26.0-34.0); MCHC 30.8 g/dL (31.0-37.0); MCV 88.3 fL (80.0-100.0); MEAN PLATELET VOLUME 9.4 fL (7.4-10.4); NEUTROPHILS 65.3 % (40-80); PLATELET COUNT 208 10x3/uL (130-400); RDW 16.8 % (11.5-14.5); WBC 4.8 10x3/uL (4.8-10.8)
--- NOTE | 2020-06-10 07:30 | NUR ---
REPORT RECIEVED. PT SITTING SEMI FOWLERS. RR EVEN AND UNLABORED ON RA. SHE HAS A L FA PIV INFUSING NS @ 20. BED LOCKED AND IN LOWEST POSITION, CALL LIGHT WITHIN REACH. WILL CTM.
[2020-06-10] MEDS ORDERED: ZITHROMAX250 MG PO (07:50)
[2020-06-10 08:30] VITALS: BP 141/69
--- NOTE | 2020-06-10 11:17 | NUR ---
DC PAPERWORK GONE OVER AND SIGNED WITH PT. ALL QUESTIONS ANSWERED. PIV REMOVED, CATH TIP FULLY INTACT. ALL VALUBLES TAKEN WITH PT. PT WHEELED TO FRONT ENTRANCE. DAUGHTER TO TAKE PT HOME. TELEMETRY REMOVED AND RETURNED TO CLINICAL QUALITY ASSURANCE SPECIALIST.
--- NOTE | 2020-06-10 14:27 | MORECARE ---
CASE MANAGEMENT DISCHARGE SUMMARY PATIENT: CAMMIE WATTS UNIT: [id number] ADM DATE: 06/08/20 AGE: 74 : 46 SEX: F ROOM/BED: D.5466 AUTHOR: KRISTI LOVETT PHYSICIAN: REFERRING PHYSICIAN: REINA BARRAZA MD DATE OF SERVICE: 06/10/20 Discharge Plan Patient Name: CAMMIE WATTS Facility: [facility]:[place] : 1945 Planned Disposition: Home or Self Care Anticipated Discharge Date: 06/10/20 Discharge Date: 06/10/2020 Expected LOS: 2 Initial Reviewer: [email or web address] Initial Review Date: 06/08/2020 Generated: 06/10/20 3:26 pm Comments DCP- Discharge Planning Updated by [email or web address]: Latoya Cagle on 06/10/20 8:[address] CM met with patient to discuss initial discharge planning. Patient is in agreement to proceed with the assessment. Patient reports that she lives at home independently, alone. Patient is alert/oriented. Stairs/steps: 2. PCP: Dr. Barraza. Pharmacy: [facility]. Patient states she has been able to obtain all of her prescribed medications. HHS: No. DME: O2, portable O2, Nebulizer, walker, cane, [employer]. Patient gives permission to speak with family members/care givers. Emergency contact: Alea Viera (dtr) [phone]. 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 CM discussed the availability of HH, Rehab, SNF, OP Therapy, DME services. Patient denies the need for additional services at this time and feels safe returning to previous environment. Patient denies hospitalization within the past 30 days. Patient states she has a nurse from her insurance company that visits her one time each month, who checks her medications, labs and physical exam. Patient has transportation services, through her [facility] appointments. Family assist with transportation to other places. Transportation at time of discharge: Alea Viera. Coverage Notice Reviewer: [id number] - Latoya Cagle Notice Issued Date-Time: 06/10/2020 10:22 Notice Type: IM Discharge Notice Notice Delivered To: Patient Relationship to Patient: Self Behavioral Therapist Name: Cammie Watts Delivery Method: HAND - Hand Delivered Lissette Days: Prior Verbal Notification: Recipient Understood Notice: Yes Recipient Signature: Yes Med Rec Note Co-signed by Attending: Coverage Notice Comment: DC IMM signed Patient Name: CAMMIE WATTS Page [phone] at 1427 All edits/amendments must be made on the electronic document DICTATION DATE: 06/10/201425 PHOTOVOLTAIC INSTALLER: MANNY 06/10/20 142 RPT#: [id number] DC DATE:06/10/20 STATUS: DIS IN [facility] [address] [place] [address] END OF REPORT
== END 2020-06-10 11:42 | disposition home or self-care (01) | DRG 191 ==
LOC: D.ER 11:05 → D.EDHOLD 14:56 → D.M2 14:56
PROVIDERS: Family Medicine; ADMIT Family Medicine; ATTEND Family Medicine
DX: J43.9 Emphysema, unspecified (principal); J98.11 Atelectasis; R91.1 Solitary pulmonary nodule

== ENCOUNTER 2020-07-30 15:31 | Emergency (ER) | payer MEDICARE, MEDICAID ==
[~2020-07-30] VITALS: Ht 175.3 cm; Wt 79.5 kg
[~2020-07-30 15:31] MED LIST changes: +RANEXA500 MG PO; +ZITHROMAX250 MG PO; +ZYRTEC10 MG PO
[2020-07-30 15:34] VITALS: Ht 175.3 cm; Wt 79.5 kg
[2020-07-30 17:11] LABS: ANION GAP 9.5 mmol/L (8-16); CALCIUM 9.2 mg/dL (8.5-10.1); CARBON DIOXIDE 32.5 mmol/L (21.0-32.0); CREATININE - SERUM 1.1 mg/dL (0.6-1.3)
[2020-07-30 17:17] LABS: ALBUMIN 3.7 g/dL (3.4-5.0); BILIRUBIN - TOTAL 0.51 mg/dL (0.2-1.3); PROTEIN - SERUM 7.5 g/dL (6.4-8.2)
[2020-07-30 17:32] LABS: BASOPHILS 0.1 % (0-2); EOSINOPHILS 0.8 % (0-7); HEMATOCRIT 45.6 % (36.0-48.0); HEMOGLOBIN 14.5 g/dL (12-16); IMMATURE GRANULOCYTES 1.3 % (0-5); LYMPHOCYTES 9.4 % (15-50); MCH 28.7 pg (26.0-34.0); MCHC 31.8 g/dL (31.0-37.0); MCV 90.1 fL (80.0-100.0); MEAN PLATELET VOLUME 9.9 fL (7.4-10.4); MONOCYTES 6.7 % (2-11); NEUTROPHILS 81.7 % (40-80); PLATELET COUNT 200 10x3/uL (130-400); RBC 5.06 10x6/uL (4.00-5.40); RDW 15.6 % (11.5-14.5); WBC 10.1 10x3/uL (4.8-10.8)
[2020-07-30] MEDS ORDERED: NORFLEX100 MG PO (18:26)
[2020-07-30] MEDS ORDERED: PERCOCET 10-321 EAC1 PO (18:46)
[2020-07-30 19:23] VITALS: BP 169/91
== END 2020-07-30 19:23 | disposition home or self-care (01) ==
LOC: D.ER 15:31
PROVIDERS: Emergency Medicine
DX: M48.54XA Collapsed vertebra, not elsewhere classified, thoracic region, initial encounter for fracture (principal); M54.9 Dorsalgia, unspecified; Z95.5 Presence of coronary angioplasty implant and graft

== ENCOUNTER 2020-08-29 02:19 | Inpatient (IN) | payer MEDICARE, MEDICAID ==
[~2020-08-29] VITALS: Ht 175.3 cm; Wt 78.5 kg
--- NOTE | ~2020-08-29 | EEG ---
PATIENT:JOSE NEGRO MEDICAL RECORD: [id number] DATE OF : 47 LOCATION:D.223 D.MS ADMISSION DATE: 08/29/20 REFERRING PHYSICIAN: INTERPRETING PHYSICIAN: NOELLE GRIFFIN MD DATE OF SERVICE: 08/31/2020 DATE OF EE08/31/2020 ORDERED BY: Dr. Griffin. ROOM NUMBER: 2228. CASE HISTORY: A 74-year-old female admitted after a fall and head injury, subsequently demonstrating 2 seizures last night and another seizure this morning, history of past UTIs, given a dose of Rocephin on admission with a history of tramadol use and Phenergan given on this admission as well. Other medications, lorazepam, morphine, albuterol, clopidogrel, baclofen, naloxone, budesonide. PROCEDURE: EEG done as a routine bedside portable recording using the standard 10-20 international electrode system. A 16-channel was used with 17th as EKG. Photic stimulation done as activation procedures. DESCRIPTION: EEG opens with the patient lethargic and in sleep, likely postictal with a record displaying diffuse background slowing of posterior dominant rhythm in the theta range, in the 5-6 to 6-7 Hz range primarily. Nonrhythmic to semi-rhythmic, sharp and slow activities occurring at about 4 Hz were seen primarily in the left at P3 and T5 and T3 as well, there was also intermixed high voltage theta slowing. Later in the record these sharp and slow activity spread into the right parietal central regions as well as left frontal region and later in the records spike and wave was seen in the same distribution at 4 Hz briefly the transitioned again to sharp and slows. No overt clinical seizure activity was observed with the patient remaining in sleep. Photic stimulation did not yield a photoparoxysmal response. IMPRESSION: Markedly abnormal EEG with paroxysmal activities in the posterior regions primarily or on the left at P3, T5, and T3 with spread as described. Sharps and slows occurring semi-rhythmic, late arrhythmically as well as spike and wave occurring suggest a seizure focus and active seizure activity, etiology might be related to head trauma, but also note precipitating medications and illness. TRANSINT:[id number] Voice Confirmation ID: [id number] DOCUMENT ID: [id number] ELECTROENCEPHALOGRAM REPORT [id number] JOSE NEGRO NOELLE GRIFFIN MD CC: [id number] DICTATION DATE: 08/31/20 1219 PROCEDURES TECH: 08/31/20 1350 ADM IN [facility] [address] [facility], [facility]
[~2020-08-29 02:19] MED LIST changes: +NORFLEX100 MG PO; +PERCOCET 10-321 EAC1 PO
[2020-08-29] MEDS ORDERED: LYRICA100 MG PO (02:27)
[2020-08-29] MEDS ORDERED: PLAVIX75 MG PO (02:27)
[2020-08-29] MEDS ORDERED: SYMBICORT 16010.2 GM INH (02:28)
[2020-08-29] MEDS ORDERED: BACLOFEN10 MG PO (02:28)
[2020-08-29] MEDS ORDERED: PROAIR HFA8.5 G1 INH ×2 (02:28→02:29)
[2020-08-29] MEDS ORDERED: TRAZODONE HCL150 MG PO (02:28)
[2020-08-29] MEDS ORDERED: MIRAPEX0.75 MG PO (02:28)
[2020-08-29] MEDS ORDERED: HYDROCODON-ACE1 EAC7 PO (02:29)
[2020-08-29] MEDS ORDERED: RANEXA500 MG PO (02:29)
[2020-08-29] MEDS ORDERED: MECLIZINE HCL25 MG PO (02:29)
[2020-08-29] MEDS ORDERED: BAYER CHEWABLE81 MG PO (02:30)
[2020-08-29] MEDS ORDERED: ULTRAM50 MG PO (02:30)
[2020-08-29] MEDS ORDERED: ZYRTEC10 MG PO (02:30)
[2020-08-29] MEDS ORDERED: VOLTAREN100 GM TOPICAL (02:31)
[2020-08-29 02:32] LABS: BASOPHILS 0.2 % (0-2); EOSINOPHILS 0.8 % (0-7); HEMATOCRIT 40.5 % (36.0-48.0); HEMOGLOBIN 12.9 g/dL (12-16); IMMATURE GRANULOCYTES 0.5 % (0-5); LYMPHOCYTES 9.3 % (15-50); MCHC 31.9 g/dL (31.0-37.0); MEAN PLATELET VOLUME 9.6 fL (7.4-10.4); MONOCYTES 7.5 % (2-11); NEUTROPHILS 81.7 % (40-80); PLATELET COUNT 220 10x3/uL (130-400); RDW 15.6 % (11.5-14.5); WBC 6.5 10x3/uL (4.8-10.8)
[2020-08-29 02:41] LABS: ANION GAP 12.5 mmol/L (8-16); APTT 30.4 SECONDS (22.8-39.4); CALCIUM 9.4 mg/dL (8.5-10.1); CARBON DIOXIDE 23.8 mmol/L (21.0-32.0); CREATININE - SERUM 1.2 mg/dL (0.6-1.3); INR 1.08 (0.85-1.17); POTASSIUM - SERUM 4.3 mmol/L (3.5-5.1); PROTIME 13.9 SECONDS (11.6-15.0)
[2020-08-29 02:47] LABS: ALBUMIN 3.7 g/dL (3.4-5.0); BILIRUBIN - TOTAL 0.56 mg/dL (0.2-1.3); PROTEIN - SERUM 7.6 g/dL (6.4-8.2)
[2020-08-29 04:53] LABS: BILIRUBIN NEGATIVE (NEGATIVE); KETONE MODERATE mg/dL (NEGATIVE); NITRITE POSITIVE (NEGATIVE); UROBILINOGEN NORMAL mg/dL (< 2)
[2020-08-29 04:55] LABS: CREATINE KINASE 536 UL (21-215)
[2020-08-29 04:55] LABS: BACTERIA MANY HPF (NONE SEEN); EPITHELIAL CELLS RARE /hpf (0-5); WHITE CELLS - URINE >50 HPF (0-4)
[2020-08-29 04:56] LABS: CKMB 14.1 U/L (0.0-3.6); TROPONIN-I < 0.017 ng/mL (0.000-0.060)
[2020-08-29 05:59] VITALS: BP 137/80; BMI 25.6
--- NOTE | 2020-08-29 06:41 | NUR ---
CALLED FOR TELE MONITOR
[2020-08-29] MEDS ORDERED: VITAMIN B-12500 MCG PO (06:46)
[2020-08-29] MEDS ORDERED: VITAMIN E100 UNIT PO (06:47)
[2020-08-29] MEDS ORDERED: POTASSIUM99 M1 PO (06:47)
[2020-08-29] MEDS ORDERED: CRANBERRY FRUIT PO (06:48)
[2020-08-29] MEDS ORDERED: OXYCODONE HCL10 MG PO (06:50)
--- NOTE | 2020-08-29 07:37 | NUR ---
LYING IN BED W/EYES CLOSED, RESP EVEN AND UNLABORED /02 IN PROGRESS/ORDER, NO DISTRESS NOTED.
[2020-08-29 08:00] VITALS: BP 154/70
--- NOTE | 2020-08-29 12:47 | NUR ---
1130-ASSITED PT UP OOB TO BEDSIDE CHAIR/REQUET, NEW PURE WICK GIVEN, BED PADS CHANGED, GOWN PLACED ON PT, ALL NEEDED ITEMS AND CALL WARNER ARE NEAR, DENIES ANY FURTHER NEEDS NO DISTRESS NOTED.
--- NOTE | 2020-08-29 12:48 | NUR ---
0849-BELTRAMI ADMINISTERED/ORDER FOR C/O RIGHT LEG PAIN AND BACK PAIN.
[2020-08-29 16:22] VITALS: BP 126/62
--- NOTE | 2020-08-29 18:43 | NUR ---
1500-ASSISTED PT UP OOB INTO CHAIR AT BEDSIDE/REQUEST, PT REQUEST TO GO WALKING AROUND HOSPITAL W/WALKER--NURSE EXPLAINS THAT ITS NOT SAFE--PT STATES UNDERSANDING AND STAYS IN ROOM. CLEANS SELF UP AT SINK AND SITS IN CHAIR. 1800--DC'D IV TO RT HAND 20GA CATH INTACT, BANDAGE APPLIED, PT TOLERATED WELL. NEW IV TO LEFT FA W/20GA IN PLACE, PT TOLERATING WELL. PLACED PT BACK INTO BED
--- NOTE | 2020-08-29 18:46 | NUR ---
1830-ASSITED PT BACK INTO BED, SCD'S APPLIED, NO DISTRESS NOTED.
--- NOTE | 2020-08-29 19:20 | NUR ---
ASSISTED PATIENT BACK FROM RESTROOM. PATIENT DENIES OTHER NEEDS AT THIS TIME. TURNED CARMELA ALARM ON. ENCOURAGED THE PATIENT TO CALL. WILL CONTINUE TO MONITOR.
[2020-08-29 20:00] VITALS: BP 117/63
--- NOTE | 2020-08-29 20:40 | NUR ---
ADMINISTERED MEDS PER ORDERS. DENIES OTHER NEEDS. WILL CONTINUE TO MONITOR.
[2020-08-30] VITALS: BP 128/65
[2020-08-30 04:00] VITALS: BP 158/65
[2020-08-30 05:52] LABS: BASOPHILS 0 % (0-2); HEMATOCRIT 37.1 % (36.0-48.0); HEMOGLOBIN 11.5 g/dL (12-16); IMMATURE GRANULOCYTES 0.2 % (0-5); LYMPHOCYTES 14.3 % (15-50); MCH 27.4 pg (26.0-34.0); MCV 88.3 fL (80.0-100.0); MEAN PLATELET VOLUME 9.8 fL (7.4-10.4); MONOCYTES 8.1 % (2-11); NEUTROPHILS 76.4 % (40-80); PLATELET COUNT 220 10x3/uL (130-400); RDW 15.8 % (11.5-14.5)
[2020-08-30 06:11] LABS: WBC 4.8 10x3/uL (4.8-10.8)
[2020-08-30 06:19] LABS: ANION GAP 10.3 mmol/L (8-16); CALCIUM 8.7 mg/dL (8.5-10.1); CARBON DIOXIDE 25.3 mmol/L (21.0-32.0)
[2020-08-30 06:28] LABS: CREATININE - SERUM 0.8 mg/dL (0.6-1.3); POTASSIUM - SERUM 3.6 mmol/L (3.5-5.1)
--- NOTE | 2020-08-30 07:05 | NUR ---
A&O SITTING UP ON THE SIDE OF THE BED. NO C/O PAIN. NO S/S OF ACUTE DISTRESS NOTED. UP WTIH WALKER. BRUISING TO BUE AND BACK. SCDS OFF AT THIS TIME. BED ALARM ON. ON 2L O2, NC. IV TO LEFT FOREARM, NS INFUSING @ 100ML/HR. SITE PATENT WITHOUT REDNESS OR SWELLING. ON TELEMETRY 77 SR. DENIES ANY NEEDS AT THIS TIME. CALL LIGHT IN REACH. WILL CONTINUE TO MONITOR.
[2020-08-30 09:05] VITALS: BP 171/84
[2020-08-30 12:38] VITALS: BP 137/76
[2020-08-30 14:38] VITALS: BMI 25.5
--- NOTE | 2020-08-30 14:42 | NUR ---
PT WAS BROUGHT TO MRI AND PUT ON TABLE. UNABLE TO LAY FLAT. MEDS WERE GIVEN THEN THE PATIENT QUIT. UNABLE TO LAY FLAT AND TOO MUCH PAIN. PT REFUSED MRI. SKYLAR PT NURSE NOTIFIED.
--- NOTE | 2020-08-30 19:36 | NUR ---
I have reviewed this patient and I concur with the Shift Assessment completed by the Licensed Practical Nurse today this shift.
[2020-08-30 20:00] VITALS: BP 168/92
--- NOTE | 2020-08-30 20:36 | NUR ---
REC'D CHGE. OF SHIFT WALKING ROUNDS REQUESTING TO BE DISCHARGED SINCE UNABLE TO DO MRI OF SPINE. EXPLAINED NO DISCHARGE ORDERS AND LEAVING AMA VOICES UNDERSTANDING.2030) REC'D CALL FROM DR ESPINOSA STATES PATIENT IS CALLING ANSWERING SERVIE FOR DR BARRAZA. STATES EXPLAIN TO PATIENT NOT TO CALL ANSWERING SERVICE AND WILL NOT BE DISCHARGING TONITE TILL ALL TEST PREVIOUSLY ORDERED HAS BEEN COMPLETED.
[2020-08-31] VITALS (8 sets, daily range): BP systolic 147–198; BP diastolic 61–98
--- NOTE | 2020-08-31 07:10 | NUR ---
PT LAYING IN BED, RESTLESS, UNABLE TO TELL ME WHERE SHE IS OR WHAT YEAR IT IS. STARTED THE KEPPRA (INFUSING OVER 15MIN) AND D5 0.45%NS (75ML/HR). SHE IS ABLE TO TELL ME SHE IS NOT IN PAIN AT THIS TIME. BED IN LOWEST POSITION, LOCKED, SIDE RAILS UP x3. CALL LIGHT WITHIN REACH. NEEDS ANTICIPATED AND MET. WILL CONTINUE TO MONITOR
--- NOTE | 2020-08-31 07:32 | NUR ---
CONTINUES TO GET OUT OF BED AND NOT USE CALL LITE FOR ASSIST. STATES I'M TIRED OF PEOPLE TELLING ME WHAT TO DO. ASSISTED TO BE CARMELA MAT GERARDO.0230) OUT IN HALLWAY GOING IN OTHER PATIENTS ROOMS.ATTEMPTED TO TALK INTO GOING BACK TO ROOM COMBATIVE. PLACED IN WHEELCHAIR.INVOLUNTARY SHAKING,FROTHY MOUTH LETHARGIC BACK TO ROOM LIFTED TO BED RAPID CALLED 0350.NEW ORDERS REC'D.BLOOD GASES 98%. ON NC 2L. 0330)KRISHAN CHONG DTR NOTIFIED OF CH[facility]. IN CONDITION.WILL CONTINUE TO MONITOR FOR ANY CHGES AND FOLLOW CURRENT PLAN OF CARE
--- NOTE | 2020-08-31 08:25 | NUR ---
STARTED SEIZING. GAVE ATIVAN 2MG IV. SEIZURE LASTED ABOUT ONE MINUTE. DR. CORONADO PRESENT. RAPID WAS CALLED. PT HAS STOPPED SEIZING. STILL NOT RESPONDING. EEG BEING DONE NOW. CONTINUING TO MONITOR
[2020-08-31 08:27] LABS: BASOPHILS 0.1 % (0-2); EOSINOPHILS 0.4 % (0-7); HEMATOCRIT 42.2 % (36.0-48.0); HEMOGLOBIN 13.7 g/dL (12-16); IMMATURE GRANULOCYTES 0.4 % (0-5); LYMPHOCYTES 7.3 % (15-50); MCH 28.2 pg (26.0-34.0); MCHC 32.5 g/dL (31.0-37.0); MEAN PLATELET VOLUME 9.9 fL (7.4-10.4); MONOCYTES 7.3 % (2-11); NEUTROPHILS 84.5 % (40-80); PLATELET COUNT 214 10x3/uL (130-400); RBC 4.85 10x6/uL (4.00-5.40); RDW 15.3 % (11.5-14.5)
--- NOTE | 2020-08-31 08:29 | NUR ---
0820- I WAS ASKED TO COME SEE PATIENT WITH ANDREA DRAKE APN, PATIENT WAS NOT RESPONDING APPEARING TO BE HAVING A SEIZURE, RAPID RESPONSE CALLED PATIENTS NURSE AT BEDSIDE ALONG WITH DR BARRAZA, THIERRY SUP, ICU NURSE AND RESP. .
--- NOTE | 2020-08-31 08:36 | NUR ---
VITAL SIGNS: SPO2: 96 HR: 101 BP: 194/81 TEMP: 98.4
[2020-08-31 08:38] LABS: CALC OSMOLALITY 269 mosm/kg (275-300); CALCIUM 8.8 mg/dL (8.5-10.1); CARBON DIOXIDE 23.4 mmol/L (21.0-32.0); CHLORIDE - SERUM 101 mmol/L (98-107); CREATININE - SERUM 0.6 mg/dL (0.6-1.3); GLUCOSE 122 mg/dL (74-106); POTASSIUM - SERUM 3.1 mmol/L (3.5-5.1); SODIUM 135 mmol/L (136-145); eGFR NON AFRICAN AMERICAN > 90 mL/min (90-120)
[2020-08-31 08:39] LABS: UREA NITROGEN 9 mg/dL (7-18)
--- NOTE | 2020-08-31 11:21 | NUR ---
BACK IN ROOM FROM MRI. NO ACUTE DISTRESS NOTED. NC/4L AND SAT 98%. BED IN LOWEST POSITION, LOCKED, SIDE RAILS UP X3. BED ALARM ON. CALL LIGHT WITHIN REACH. NEEDS ANTICIPATED AND MET. WILL CONTINUE TO MONITOR
--- NOTE | 2020-08-31 14:40 | NUR ---
Bruising is noted on BUE and back from a fall a few days ago. Pt has no open or chronic wounds.
[2020-08-31 17:02] LABS: CKMB 44.6 U/L (0.0-3.6); TROPONIN-I 0.043 ng/mL (0.000-0.060)
[2020-08-31 17:08] LABS: CREATINE KINASE 902 UL (21-215)
[2020-08-31 22:49] LABS: CREATINE KINASE 1624 UL (21-215)
[2020-08-31 22:50] LABS: TROPONIN-I 0.069 ng/mL (0.000-0.060)
[2020-09-01] VITALS: BP 124/79; BP 221/107
--- NOTE | 2020-09-01 02:22 | NUR ---
I have reviewed this patient and I concur with the Shift Assessment completed by the Licensed Practical Nurse today this shift.
[2020-09-01 04:00] VITALS: BP 190/95
[2020-09-01 04:42] LABS: BASOPHILS 0.1 % (0-2); EOSINOPHILS 0.1 % (0-7); HEMATOCRIT 45.9 % (36.0-48.0); HEMOGLOBIN 14.6 g/dL (12-16); IMMATURE GRANULOCYTES 0.3 % (0-5); LYMPHOCYTES 6.1 % (15-50); MCH 27.2 pg (26.0-34.0); MCHC 31.8 g/dL (31.0-37.0); MCV 85.6 fL (80.0-100.0); MEAN PLATELET VOLUME 10.1 fL (7.4-10.4); MONOCYTES 6.5 % (2-11); NEUTROPHILS 86.9 % (40-80); RBC 5.36 10x6/uL (4.00-5.40); RDW 15.1 % (11.5-14.5)
[2020-09-01 04:51] LABS: PLATELET COUNT 288 10x3/uL (130-400); WBC 9.5 10x3/uL (4.8-10.8)
[2020-09-01 05:17] LABS: CALC OSMOLALITY 275 mosm/kg (275-300); CALCIUM 9.2 mg/dL (8.5-10.1); CHLORIDE - SERUM 100 mmol/L (98-107); CKMB 57.6 U/L (0.0-3.6); CREATININE - SERUM 0.7 mg/dL (0.6-1.3); GLUCOSE 109 mg/dL (74-106); SODIUM 138 mmol/L (136-145); UREA NITROGEN 11 mg/dL (7-18); eGFR NON AFRICAN AMERICAN 87 mL/min (90-120)
[2020-09-01 05:31] LABS: CREATINE KINASE 1411 UL (21-215); POTASSIUM - SERUM 2.6 mmol/L (3.5-5.1)
[2020-09-01 05:32] LABS: TROPONIN-I 0.114 ng/mL (0.000-0.060)
[2020-09-01 08:02] VITALS: BP 175/85
[2020-09-01 10:07] VITALS: Ht 175.3 cm; Wt 78.5 kg
[2020-09-01 12:02] VITALS: BP 152/79
[2020-09-01 14:30] VITALS: BP 178/63
--- NOTE | 2020-09-01 14:31 | NUR ---
NUTRITION F/U CHART REVIEWED, PT TOLERATING AHA DIET WITH ~25% INTAKE RECENT MEALS. WILL CONTINUE TO PROVIDE DIET, MONITOR PO INTAKE. OFFER NUTRITIONAL SUPPLEMENTS IF PO REMAINS INADEQUATE. RD FOLLOWING
[2020-09-01 22:21] VITALS: BP 109/75
[2020-09-02 04:00] VITALS: BP 137/82
[2020-09-02 06:12] LABS: BASOPHILS 0.1 % (0-2); EOSINOPHILS 0.7 % (0-7); HEMATOCRIT 44.1 % (36.0-48.0); IMMATURE GRANULOCYTES 0.4 % (0-5); LYMPHOCYTES 7.5 % (15-50); MCH 27.6 pg (26.0-34.0); MCHC 31.7 g/dL (31.0-37.0); MCV 86.8 fL (80.0-100.0); MEAN PLATELET VOLUME 9.8 fL (7.4-10.4); MONOCYTES 8.6 % (2-11); NEUTROPHILS 82.7 % (40-80); PLATELET COUNT 237 10x3/uL (130-400); RBC 5.08 10x6/uL (4.00-5.40); RDW 15.4 % (11.5-14.5); WBC 7.2 10x3/uL (4.8-10.8)
[2020-09-02 06:28] LABS: CALC OSMOLALITY 283 mosm/kg (275-300); CARBON DIOXIDE 24.4 mmol/L (21.0-32.0); CHLORIDE - SERUM 105 mmol/L (98-107); CREATININE - SERUM 0.7 mg/dL (0.6-1.3); GLUCOSE 90 mg/dL (74-106); POTASSIUM - SERUM 3.3 mmol/L (3.5-5.1); SODIUM 142 mmol/L (136-145); eGFR NON AFRICAN AMERICAN 87 mL/min (90-120)
[2020-09-02 06:34] LABS: UREA NITROGEN 15 mg/dL (7-18)
--- NOTE | 2020-09-02 07:15 | NUR ---
RECEIVED BEDSIDE REPORT. PT LAYING IN BED, EYES CLOSED, EVEN RESPIRATIONS. NO PIV. PUREWICK IN PLACE, PATENT, DARK URINE. BED LOW, ALARM ON, RAILS X2. CL IN REACH. WILL CONTINUE TO MONITOR.
[2020-09-02 08:00] VITALS: BP 94/76
--- NOTE | 2020-09-02 10:15 | NUR ---
PERFORMED IN AND OUT CATHETER, MAINTAINED STERILITY, GOOD RETURN, PT TOLERATED WELL. SENT URINE TO LAB. BED LOW, RAILS X2. CL IN REACH.
[2020-09-02 11:15] LABS: BILIRUBIN NEGATIVE (NEGATIVE); KETONE MODERATE mg/dL (NEGATIVE); NITRITE NEGATIVE (NEGATIVE); UROBILINOGEN NORMAL mg/dL (< 2)
[2020-09-02 11:18] LABS: WHITE CELLS - URINE 0-5 HPF (0-4)
[2020-09-02 11:19] LABS: BACTERIA FEW HPF (NONE SEEN); EPITHELIAL CELLS NSEEN /hpf (0-5)
--- NOTE | 2020-09-02 11:30 | NUR ---
ASSISTED PT TO BR, C/O CONSTIPATION. ASSISTED PT BACK TO BED. EDUCATED PT ON BED ALARM AND CL, VERBALIZED UNDERSTANDING. BED ALARM ON, CL IN REACH. CONTACTED MD AND ORDERED STOOL SOFTENERS, ADJUSTED MEDS TO PO DUE TO PT PULLING OUT PIV LAST NIGHT AND YESTERDAY. WILL CONTINUE TO MONITOR.
[2020-09-02 11:56] VITALS: BP 127/79
--- NOTE | 2020-09-02 13:47 | NUR ---
ASSISTED PT TO BR, BM BROWN, HARD AND SMALL AMOUNT. ASSISTED PT TO CHAIR, CHAIR ALARM ON, CL IN REACH.
[2020-09-02 15:53] VITALS: BP 111/78
[2020-09-02 20:00] VITALS: BP 139/73
--- NOTE | 2020-09-02 20:00 | NUR ---
PATIENT RESTING IN CHAIR PLAYING WITH FOOD TRAY. NO S/S OF ACUTE DISTRESS. NO C/O AT THIS TIME. PATIENT IS ON 2L NASAL CANNULA. PATIENT HAS NO IV ACCESS AT THIS TIME. PATIENT IS CONFUSED, ORIENTATED TO SELF ONLY. PATIENT HAS SKIN TEARS ON BILATERAL ARMS. PATIENT IS UP WITH ASSIST AND WALKER TO BATHROOM. BED ALARM AND CHAIR ALARM IS ON. CALL LIGHT WITHIN REACH. WILL CONTINUE TO MONITOR.
--- NOTE | 2020-09-02 21:15 | NUR ---
PATIENT HAS REFUSED TO ALLOW ME TO PLACE ANOTHER IV. WILL TRY AGAIN AT ANOTHER TIME.
[2020-09-03 04:00] VITALS: BP 135/60
--- NOTE | 2020-09-03 07:52 | NUR ---
PATIENT CONFUSED THIS AM, ALERT TO SELF ONLY. UP WITH ASSIST AND WALKER. ON SEIZURE PRECAUTIONS. PATIENT UP IN CHAIR, CARMELA ALARM ON. SKIN TEARS AND BRUISING TO BUE. ON TELEMETRY 97 SR. NO IV ACCESS, PATIENT REFUSED TO ALLOW NIGHT NURSE TO OBTAIN ACCESS. DENIES ANY NEEDS AT THIS TIME. CALL LIGHT IN REACH. WILL CONTINUE TO MONITOR.
[2020-09-03 08:00] VITALS: BP 117/71
[2020-09-03 08:42] LABS: BASOPHILS 0.1 % (0-2); EOSINOPHILS 0.9 % (0-7); HEMATOCRIT 41.8 % (36.0-48.0); HEMOGLOBIN 13.5 g/dL (12-16); IMMATURE GRANULOCYTES 0.6 % (0-5); LYMPHOCYTES 10.6 % (15-50); MCH 27.8 pg (26.0-34.0); MCHC 32.3 g/dL (31.0-37.0); MONOCYTES 8.2 % (2-11); NEUTROPHILS 79.6 % (40-80); PLATELET COUNT 274 10x3/uL (130-400); RBC 4.86 10x6/uL (4.00-5.40); RDW 15.4 % (11.5-14.5); WBC 7.8 10x3/uL (4.8-10.8)
[2020-09-03 08:53] LABS: ANION GAP 17.2 mmol/L (8-16); CARBON DIOXIDE 21.4 mmol/L (21.0-32.0); POTASSIUM - SERUM 3.6 mmol/L (3.5-5.1)
--- NOTE | 2020-09-03 08:55 | EC ---
PATIENT:JOSE NEGRO DATE OF SERVICE: 08/29/20 SEX: F MEDICAL RECORD: [id number] DATE OF : [birth year] LOCATION:D.MS [place] AGE OF PATIENT: 74 ADMISSION DATE: 08/29/20 REFERRING PHYSICIAN: INTERPRETING PHYSICIAN: MARLYN ZAIDI MD ECHOCARDIOGRAM REPORT ECHO CHARGES 4 ECHO COMPLETE Date: 09/01/20 CLINICAL DIAGNOSIS: HTN ECHOCARDIOGRAPHIC MEASUREMENTS (adult normal given) AC root (d.<3.7cm) 2.2 cm LV Septum d (<1.2 cm> 0.9 cm Valve Excursion 1.5 cm LV Septum (systole) 1.6 cm Left Atria (s.<4.0cm> 2.9 cm LVPW d(<1.2cm) 0.8 cm RV (d.<2.3cm) 2.7 cm LVPW (sytole) 0.9 cm LV diastole(<5.6CM) 4.1 cm MV E-F(>70mm/sec) cm LV systole 2.9 cm LVOT Diameter 1.3 cm MV exc.(>10mm) 0.7 cm Est.ejection fraction (50-75%) % DOPPLER: LVIT cm/sec A 111 cm/sec E 53 cm/sec LA cm/sec RVSP 34 mmHg LVOT 89 cm/sec AOP1/2T m/s Asc. Ao 134 cm/sec RVOT 52 cm/sec RA cm/sec PA 64 cm/sec AV Gradient Peak 7.2 mmHg AV Mean 3.6 mmHg AV Area 0.9 cm MV Gradient Peak 7.2 mmHg MV Mean 3.1 mmHg MV Area cm COMMENTS: Cabin Worker: Ghazal VIDAL Crusher Supervisor: 3 Dr. Maldonado TAPE# PACS Pericardial Effusion Y DATE OF SERVICE: Adequate 2D echo, color flow imaging, spectral Doppler, and M-Mode No LVH. LV internal dimension is normal. Wall motion is normal. EF is greater than or equal to 55%. Aortic valve is tricuspid. No evidence of stenosis by Doppler interrogation. Left atrium is normal. Mitral valve shows no prolapse. Trace MR. Right-sided chambers are grossly normal. Trace TR. TRANSINT:[id number] Voice Confirmation ID: [id number] DOCUMENT ID: [id number] ECHOCARDIOGRAM REPORT [id number] JOSE NEGRO MARLYN ZAIDI MD at 0855 CC: [id number] DICTATION DATE: 09/02/20813 STAINED GLASS GLAZIER HELPER: 09/02/20928 ADM IN [place] [id number] [place] [id number]
[2020-09-03 12:00] VITALS: BP 114/80
--- NOTE | 2020-09-03 14:38 | MORECARE ---
CASE MANAGEMENT DISCHARGE SUMMARY PATIENT: JOSE NEGRO UNIT: [id number] ADM DATE: 08/29/20 AGE: 74 : [birth year] SEX: F ROOM/BED: D.2238 AUTHOR: BONY,DOC PHYSICIAN: REFERRING PHYSICIAN: REINA BARRAZA MD DATE OF SERVICE: 09/03/20 Discharge Plan Patient Name: JOSE NEGRO Facility: [facility]:[place] : 1945 Planned Disposition: Anticipated Discharge Date: Discharge Date: Expected LOS: Initial Reviewer: [email or web address] Initial Review Date: 08/29/2020 Generated: 09/03/20 3:37 pm Comments DCP- Discharge Planning Updated by [email or web address]: Sierra Brownlee on 09/03/20 1:[address] Patient Name: JOSE NEGRO Admission Status: ER Accout number: [id number] Admission Date: 08-29-2020 : 1945 Admission Diagnosis:URINARY TRACT INFECTION, SITE NOT SPECIFIED Attending: REINA BARRAZA Current LOS: 5 Anticipated DC Date: Planned Disposition: Primary Insurance: [facility] MEDICARE SOLUTIONS Discharge Planning Comments: CM met with patient at bedside after explaining CM role and obtaining verbal consent. CM discussed availability / needs of home health, REHAB and medical equipment. HAS 02 AND NEBS WITH [employer]. PATIENT STATES COULD USE HH, STEPHANIE SIGNED FOR ANY ACCEPTED BY HER INSURANCE. IMM SIGNED. PATIENT STATES WANTS TO GO HOME. SHE WAS DRIFTING OFF AND FORGETTING WHAT SHE WAS TALKING ABOUT WHEN I SPOKE WITH HER. SHE MAY NEED REHAB BUT I AM NOT CONFIDENT SHE WILL BE AGREEABLE. Riprap Worker: Sierra Brownlee DCPIA - Discharge Planning Initial Assessment Updated by [id number]: Sierra Brownlee on 09/03/20 2:32 pm * Is the patient Alert and Oriented? No * PCP MADI * Preadmission Environment Home Alone * ADLs Independent * Other Equipment CANE, WALKER , O2/PORT WITH [employer] * Community resources currently utilized None * Additional services required to return to the preadmission environment? Yes * Can the patient safely return to the preadmission environment? No * Has this patient been hospitalized within the prior 30 days at any hospital? No Patient Name: JOSE NEGRO Page [phone] at 1438 All edits/amendments must be made on the electronic document DICTATION DATE: 09/03/201437 EQUINE INTERNSHIP: MANNY 09/03/201437 RPT#: [id number] DC DATE: STATUS: ADM IN [facility] [address] [place] [address] END OF REPORT
[2020-09-03 16:59] VITALS: BP 127/89
--- NOTE | 2020-09-03 17:57 | NUR ---
I have reviewed this patient and I concur with the Shift Assessment completed by the Licensed Practical Nurse today this shift.
--- NOTE | 2020-09-03 20:00 | NUR ---
PATIENT RESTING IN CHAIR WITH EYES OPEN. NO S/S OF ACUTE DISTRESS. NO C/O AT THIS TIME. PATIENT HAS NO IV ACCESS AT THIS TIME. PATIENT WEAR 2L PRN, WHEN PATIENT FEELS LIKE WEARING IT. PATIENT HAS BILATERAL SKIN TEARS, DRESSING C/D/I. PATIENT HAS BRUISING ALL OVER BODY. PATIENT IS UP WITH ASSIST AND WALKER. PATIENT IS CONFUSED, ORIENTATED TO SELF ONLY. CALL LIGHT WITHIN REACH. BED ALARM ON. WILL CONTINUE TO MONITOR.
[2020-09-03 21:40] VITALS: BP 147/81
[2020-09-04 05:36] VITALS: BP 174/72
[2020-09-04 06:55] LABS: BASOPHILS 0.1 % (0-2); EOSINOPHILS 1.7 % (0-7); HEMATOCRIT 41.1 % (36.0-48.0); HEMOGLOBIN 13.1 g/dL (12-16); IMMATURE GRANULOCYTES 0.4 % (0-5); LYMPHOCYTES 11.3 % (15-50); MCH 27.6 pg (26.0-34.0); MCHC 31.9 g/dL (31.0-37.0); MCV 86.7 fL (80.0-100.0); MEAN PLATELET VOLUME 10.1 fL (7.4-10.4); MONOCYTES 7.9 % (2-11); NEUTROPHILS 78.6 % (40-80); PLATELET COUNT 328 10x3/uL (130-400); RBC 4.74 10x6/uL (4.00-5.40); RDW 15.3 % (11.5-14.5); WBC 7.1 10x3/uL (4.8-10.8)
[2020-09-04 07:12] LABS: ANION GAP 13.6 mmol/L (8-16); CALCIUM 9.6 mg/dL (8.5-10.1); CARBON DIOXIDE 23.1 mmol/L (21.0-32.0); POTASSIUM - SERUM 3.7 mmol/L (3.5-5.1)
[2020-09-04 09:21] VITALS: BP 149/80
--- NOTE | 2020-09-04 09:44 | NUR ---
PT ALERT AND CONFUSED X3 UPON ENTERING, SITTING IN BEDSIDE CHAIR WITH CHAIR ALARM ON AND FUNCTIONING. ADMINISTERED MEDICATION AT THIS TIME, NO DIFFICULTIES. PT DENIES ANY NEEDS. BEDSIDE TABLE OVER PT LAP. WILL CONTINUE TO MONITOR.
[2020-09-04] MEDS ORDERED: LISINOPRIL10 MG PO (10:56)
[2020-09-04] MEDS ORDERED: NORVASC2.5 MG PO (10:56)
[2020-09-04] MEDS ORDERED: KEPPRA500 MG PO (10:57)
[2020-09-04 14:25] VITALS: BP 126/65
--- NOTE | 2020-09-04 14:39 | NUR ---
I have reviewed this patient and I concur with the Shift Assessment completed by the Licensed Practical Nurse today this shift.
--- NOTE | 2020-09-04 14:57 | MORECARE ---
CASE MANAGEMENT DISCHARGE SUMMARY PATIENT: JOSE NEGRO UNIT: [id number] ADM DATE: 08/29/20 AGE: 74 : [birth year] SEX: F ROOM/BED: D.2238 AUTHOR: BONY,DOC PHYSICIAN: REFERRING PHYSICIAN: REINA BARRAZA MD DATE OF SERVICE: 09/04/20 Discharge Plan Patient Name: JOSE NEGRO Facility: [facility]:[place] : 1945 Planned Disposition: Anticipated Discharge Date: Discharge Date: Expected LOS: Initial Reviewer: [email or web address] Initial Review Date: 08/29/2020 Generated: 09/04/20 3:56 pm Comments DCP- Discharge Planning Updated by [email or web address]: Lior Dykes on 09/04/20 1:[address] Patient Name: JOSE NEGRO Encounter No: [id number] : 1945 Primary Insurance: [facility] MEDICARE SOLUTIONS Anticipated DC Date: Planned Disposition: External Planned Provider: : DCP follow-up note: Spoke with patient regarding further DC needs. Patient declined SNF, IPR, and DME. Patient states that she has Oxygen supplies through [employer] and does not need DME for travel. Oxygen bag noted at bedside. Patient states that she wants a nurse to visit her at home through [facility]. Patient desires [facility]. STEPHANIE signed and placed on chart. Phone call to [facility], spoke with Tammy ([phone]. Tammy stated she will need the DC order and clinicals faxed to [phone]. Clinicals faxed. CM will continue to follow and will assist as needed with dc plans/needs. Lior Dykes DCP- Discharge Planning Updated by [id number]: Sierra Brownlee on 09/03/20 1:[address] Patient Name: JOSE NEGRO Admission Status: ER Accout number: [id number] Admission Date: 08-29-2020 : 1945 Admission Diagnosis:URINARY TRACT INFECTION, SITE NOT SPECIFIED Attending: REINA BARRAZA Current LOS: 5 Anticipated DC Date: Planned Disposition: Primary Insurance: [facility] MEDICARE SOLUTIONS Discharge Planning Comments: CM met with patient at bedside after explaining CM role and obtaining verbal consent. CM discussed availability / needs of home health, REHAB and medical equipment. HAS 02 AND NEBS WITH [employer]. PATIENT STATES COULD USE , STEPHANIE SIGNED FOR ANY ACCEPTED BY HER INSURANCE. IMM SIGNED. PATIENT STATES WANTS TO GO HOME. SHE WAS DRIFTING OFF AND FORGETTING WHAT SHE WAS TALKING ABOUT WHEN I SPOKE WITH HER. SHE MAY NEED REHAB BUT I AM NOT CONFIDENT SHE WILL BE AGREEABLE. Diamond Expert: Sierra Brownlee DCPIA - Discharge Planning Initial Assessment Updated by [email or web address]: Sierra Brownlee on 09/03/20 2:32 pm * Is the patient Alert and Oriented? No * PCP MADI * Preadmission Environment Home Alone * ADLs Independent * Other Equipment CANE, WALKER , O2/PORT WITH [facility] * Community resources currently utilized None * Additional services required to return to the preadmission environment? Yes * Can the patient safely return to the preadmission environment? No * Has this patient been hospitalized within the prior 30 days at any hospital? No External Providers External Provider: [facility] Next Contact Date: Service Request Date: Service Type: Resolution: Reviewer: Comments: Coverage Notice Reviewer: [email or web address] Jayce Brownlee Notice Issued Date-Time: 09/03/2020 14:37 Notice Type: IM Discharge Notice Notice Delivered To: Relationship to Patient: Ice Cream Van Vendor Name: Delivery Method: HAND - Hand Delivered Lissette Days: Prior Verbal Notification: Recipient Understood Notice: Yes Recipient Signature: Yes Med Rec Note Co-signed by Attending: Coverage Notice Comment: Reviewer: [email or web address] Jayce Brownlee Notice Issued Date-Time: 09/03/2020 14:37 Notice Type: Patient Choice Letter Notice Delivered To: Patient Relationship to Patient: Ice Cream Van Vendor Name: Delivery Method: HAND - Hand Delivered Lissette Days: Prior Verbal Notification: Recipient Understood Notice: Yes Recipient Signature: Yes Med Rec Note Co-signed by Attending: Coverage Notice Comment: ANY Last DP export: 09/03/20 1:38 p Patient Name: JOSE NEGRO Page [phone] at 1457 All edits/amendments must be made on the electronic document DICTATION DATE: 09/04/200 SALVAGE LABORER: MANNY 09/04/201455 RPT#: [id number] DC DATE: STATUS: ADM IN [facility] [address] [facility] [place] [address] END OF REPORT
--- NOTE | 2020-09-04 15:52 | MORECARE ---
CASE MANAGEMENT DISCHARGE SUMMARY PATIENT: JOSE NEGRO UNIT: [id number] ADM DATE: 08/29/20 AGE: 74 : 47 SEX: F ROOM/BED: D.2238 AUTHOR: BONY,KRISTI PHYSICIAN: REFERRING PHYSICIAN: REINA BARRAZA MD DATE OF SERVICE: 09/04/20 Discharge Plan Patient Name: JOSE NEGRO Facility: [facility]:[place] : 1945 Planned Disposition: Anticipated Discharge Date: Discharge Date: Expected LOS: Initial Reviewer: [id number] Initial Review Date: 08/29/2020 Generated: 09/04/20 4:51 pm Comments DCP- Discharge Planning Updated by [id number]: Lior Dykes on 09/04/20 1:[address] Patient Name: JOSE NEGRO Encounter No: [id number] : 1945 Primary Insurance: [facility] MEDIC[facility] SOLUTIONS Anticipated DC Date: Planned Disposition: External Planned Provider: : DCP follow-up note: Spoke with patient regarding further DC needs. Patient declined SNF, IPR, and DME. Patient states that she has Oxygen supplies through [employer] and does not need DME for travel. Oxygen bag noted at bedside. Patient states that she wants a nurse to visit her at home through [facility]. Patient desires Care IV. STEPHANIE signed and placed on chart. Phone call to Care IV, spoke with Tammy ([phone]. Tammy stated she will need the DC order and clinicals faxed to [phone]. Clinicals faxed. CM will continue to follow and will assist as needed with dc plans/needs. Lior Dykes DCP- Discharge Planning Updated by [email or web address]: Sierra Brownlee on 09/03/20 1:[address] Patient Name: JOSE NEGRO Admission Status: ER Accout number: [id number] Admission Date: 08-29-2020 : 1945 Admission Diagnosis:URINARY TRACT INFECTION, SITE NOT SPECIFIED Attending: REINA BARRAZA Current LOS: 5 Anticipated DC Date: Planned Disposition: Primary Insurance: [facility] MEDIC[facility] SOLUTIONS Discharge Planning Comments: CM met with patient at bedside after explaining CM role and obtaining verbal consent. CM discussed availability / needs of home health, REHAB and medical equipment. HAS 02 AND NEBS WITH [facility]. PATIENT STATES COULD USE HH, STEPHANIE SIGNED FOR ANY ACCEPTED BY HER INSURANCE. IMM SIGNED. PATIENT STATES WANTS TO GO HOME. SHE WAS DRIFTING OFF AND FORGETTING WHAT SHE WAS TALKING ABOUT WHEN I SPOKE WITH HER. SHE MAY NEED REHAB BUT I AM NOT CONFIDENT SHE WILL BE AGREEABLE. Life Enrichment Director: Sierra Brownlee DCPIA - Discharge Planning Initial Assessment Updated by [id number]: Sierra Brownlee on 09/03/20 2:32 pm * Is the patient Alert and Oriented? No * PCP MADI * Preadmission Environment Home Alone * ADLs Independent * Other Equipment CANE, WALKER , O2/PORT WITH [facility] * Community resources currently utilized None * Additional services required to return to the preadmission environment? Yes * Can the patient safely return to the preadmission environment? No * Has this patient been hospitalized within the prior 30 days at any hospital? No External Providers External Provider: [facility] Next Contact Date: Service Request Date: Service Type: Resolution: Reviewer: Comments: Coverage Notice Reviewer: [id number] Jayce Brownlee Notice Issued Date-Time: 09/03/2020 14:37 Notice Type: IM Discharge Notice Notice Delivered To: Relationship to Patient: Hr Advisor Name: Delivery Method: HAND - Hand Delivered Lissette Days: Prior Verbal Notification: Recipient Understood Notice: Yes Recipient Signature: Yes Med Rec Note Co-signed by Attending: Coverage Notice Comment: Reviewer: [id number] Jayce Brownlee Notice Issued Date-Time: 09/03/2020 14:37 Notice Type: Patient Choice Letter Notice Delivered To: Patient Relationship to Patient: Hr Advisor Name: Delivery Method: HAND - Hand Delivered Lissette Days: Prior Verbal Notification: Recipient Understood Notice: Yes Recipient Signature: Yes Med Rec Note Co-signed by Attending: Coverage Notice Comment: HH ANY Last DP export: 09/04/20 1:57 Patient Name: JOSE NEGRO Page 51893 at 1552 All edits/amendments must be made on the electronic document DICTATION DATE: 09/04/201550 RN PROGRESSIVE CARE UNIT: MANNY 09/04/201550 RPT#: [id number] DC DATE: STATUS: ADM IN [facility] [address] [facility] [place] [address] END OF REPORT
--- NOTE | 2020-09-04 16:00 | MORECARE ---
CASE MANAGEMENT DISCHARGE SUMMARY PATIENT: JOSE NEGRO UNIT: [id number] ADM DATE: 08/29/20 AGE: 74 : 46 SEX: F ROOM/BED: D.2238 AUTHOR: KRISTI LOVETT PHYSICIAN: REFERRING PHYSICIAN: REINA BARRAZA MD DATE OF SERVICE: 09/04/20 Discharge Plan Patient Name: JOSE NEGRO Facility: [facility]:[place] : 1945 Planned Disposition: Anticipated Discharge Date: Discharge Date: Expected LOS: Initial Reviewer: [id number] Initial Review Date: 08/29/2020 Generated: 09/04/20 4:59 pm Comments DCP- Discharge Planning Updated by [email or web address]: Jayla Hidalgo on 09/04/20 2:[address] Care 4 is not in network with patient's insurance. I called patient's second choice, [place], and spoke with tonguer nurse. Clinical and order faxed to [facility]. DCP- Discharge Planning Updated by [email or web address]: Lior Dykes on 09/04/20 1:[address] Patient Name: JOSE NEGRO Encounter No: [id number] : 1945 Primary Insurance: [facility] MEDICARE SOLUTIONS Anticipated DC Date: Planned Disposition: External Planned Provider: : DCP follow-up note: Spoke with patient regarding further DC needs. Patient declined SNF, IPR, and DME. Patient states that she has Oxygen supplies through [facility] and does not need DME for travel. Oxygen bag noted at bedside. Patient states that she wants a nurse to visit her at home through [facility]. Patient desires Care IV. STEPHANIE signed and placed on chart. Phone call to Care IV, spoke with Tammy ([phone]. Tammy stated she will need the DC order and clinicals faxed to [phone]. Clinicals faxed. CM will continue to follow and will assist as needed with dc plans/needs. Lior Dykes DCP- Discharge Planning Updated by [email or web address]: Sierra Brownlee on 09/03/20 1:[address] Patient Name: JOSE NEGRO Admission Status: ER Accout number: [id number] Admission Date: 08-29-2020 : 1945 Admission Diagnosis:URINARY TRACT INFECTION, SITE NOT SPECIFIED Attending: REINA BARRAZA Current LOS: 5 Anticipated DC Date: Planned Disposition: Primary Insurance: [facility] [employer] SOLUTIONS Discharge Planning Comments: CM met with patient at bedside after explaining CM role and obtaining verbal consent. CM discussed availability / needs of home health, REHAB and medical equipment. HAS 02 AND NEBS WITH [facility]. PATIENT STATES COULD USE HH, STEPHANIE SIGNED FOR ANY ACCEPTED BY HER INSURANCE. IMM SIGNED. PATIENT STATES WANTS TO GO HOME. SHE WAS DRIFTING OFF AND FORGETTING WHAT SHE WAS TALKING ABOUT WHEN I SPOKE WITH HER. SHE MAY NEED REHAB BUT I AM NOT CONFIDENT SHE WILL BE AGREEABLE. Trackmobile Operator: Sierra Brownlee DCPIA - Discharge Planning Initial Assessment Updated by [id number]: Sierra Brownlee on 09/03/20 2:32 pm * Is the patient Alert and Oriented? No * PCP MADI * Preadmission Environment Home Alone * ADLs Independent * Other Equipment CANE, WALKER , O2/PORT WITH [facility] * Community resources currently utilized None * Additional services required to return to the preadmission environment? Yes * Can the patient safely return to the preadmission environment? No * Has this patient been hospitalized within the prior 30 days at any hospital? No Coverage Notice Reviewer: [id number] Jayce Brownlee Notice Issued Date-Time: 09/03/2020 14:37 Notice Type: IM Discharge Notice Notice Delivered To: Relationship to Patient: Chrome Polisher Name: Delivery Method: HAND - Hand Delivered Lissette Days: Prior Verbal Notification: Recipient Understood Notice: Yes Recipient Signature: Yes Med Rec Note Co-signed by Attending: Coverage Notice Comment: Reviewer: [email or web address] Jayce Brownlee Notice Issued Date-Time: 09/03/2020 14:37 Notice Type: Patient Choice Letter Notice Delivered To: Patient Relationship to Patient: Chrome Polisher Name: Delivery Method: HAND - Hand Delivered Lissette Days: Prior Verbal Notification: Recipient Understood Notice: Yes Recipient Signature: Yes Med Rec Note Co-signed by Attending: Coverage Notice Comment: HH ANY Last DP export: 09/04/20 2:52 Patient Name: JOSE NEGRO Page 89950 at 1600 All edits/amendments must be made on the electronic document DICTATION DATE: 09/04/201558 FOUNDER CEO & PRESIDENT: MANNY 09/04/201558 RPT#: [id number] DC DATE: STATUS: ADM IN [facility] [address] [place] [address] END OF REPORT
--- NOTE | 2020-09-06 08:58 | MORECARE ---
CASE MANAGEMENT DISCHARGE SUMMARY PATIENT: JOSE NEGRO UNIT: [id number] ADM DATE: 08/29/20 AGE: 74 : 47 SEX: F ROOM/BED: D.2238 AUTHOR: KRISTI LOVETT PHYSICIAN: REFERRING PHYSICIAN: REINA BARRAZA MD DATE OF SERVICE: 09/06/20 Discharge Plan Patient Name: JOSE NEGRO Facility: [facility]:[place] : 1945 Planned Disposition: Anticipated Discharge Date: Discharge Date: 09/04/2020 Expected LOS: Initial Reviewer: [id number] Initial Review Date: 08/29/2020 Generated: 09/06/20 9:57 am Comments DCP- Discharge Planning Updated by [email or web address]: Jayla Hidalgo on 09/04/20 2:[address] Care 4 is not in network with patient's insurance. I called patient's second choice, [place], and spoke with concession manager nurse. Clinical and order faxed to [facility]. DCP- Discharge Planning Updated by [email or web address]: Lior Dykes on 09/04/20 1:[address] Patient Name: JOSE NEGRO Encounter No: [id number] : 1945 Primary Insurance: [facility] MEDICARE SOLUTIONS Anticipated DC Date: Planned Disposition: External Planned Provider: : DCP follow-up note: Spoke with patient regarding further DC needs. Patient declined SNF, IPR, and DME. Patient states that she [facility] and does not need DME for travel. Oxygen bag noted at bedside. Patient states that she wants a nurse to visit her at home through [facility]. Patient desires Care IV. STEPHANIE signed and placed on chart. Phone call to Care IV, spoke with Tammy ([phone]. Tammy stated she will need the DC order and clinicals faxed to [phone]. Clinicals faxed. CM will continue to follow and will assist as needed with dc plans/needs. Lior Dykes DCP- Discharge Planning Updated by [email or web address]: Sierra Brownlee on 09/03/20 1:[address] Patient Name: JOSE NEGRO Admission Status: ER Accout number: [id number] Admission Date: 08-29-2020 : 1945 Admission Diagnosis:URINARY TRACT INFECTION, SITE NOT SPECIFIED Attending: REINA BARRAZA Current LOS: 5 Anticipated DC Date: Planned Disposition: Primary Insurance: [facility] [employer] SOLUTIONS Discharge Planning Comments: CM met with patient at bedside after explaining CM role and obtaining verbal consent. CM discussed availability / needs of home health, REHAB and medical equipment. HAS 02 AND NEBS WITH [facility]. PATIENT STATES COULD USE HH, STEPHANIE SIGNED FOR ANY ACCEPTED BY HER INSURANCE. IMM SIGNED. PATIENT STATES WANTS TO GO HOME. SHE WAS DRIFTING OFF AND FORGETTING WHAT SHE WAS TALKING ABOUT WHEN I SPOKE WITH HER. SHE MAY NEED REHAB BUT I AM NOT CONFIDENT SHE WILL BE AGREEABLE. Heavy Equipment Engine Mechanic: Sierra Brownlee DCPIA - Discharge Planning Initial Assessment Updated by [id number]: Sierra Brownlee on 09/03/20 2:32 pm * Is the patient Alert and Oriented? No * PCP MADI * Preadmission Environment Home Alone * ADLs Independent * Other Equipment CANE, WALKER , O2/PORT WITH [facility] * Community resources currently utilized None * Additional services required to return to the preadmission environment? Yes * Can the patient safely return to the preadmission environment? No * Has this patient been hospitalized within the prior 30 days at any hospital? No Coverage Notice Reviewer: [id number] Jayce Brownlee Notice Issued Date-Time: 09/03/2020 14:37 Notice Type: IM Discharge Notice Notice Delivered To: Relationship to Patient: Inspector Paper Products Name: Delivery Method: HAND - Hand Delivered Lissette Days: Prior Verbal Notification: Recipient Understood Notice: Yes Recipient Signature: Yes Med Rec Note Co-signed by Attending: Coverage Notice Comment: Reviewer: [id number] Jayce Brownlee Notice Issued Date-Time: 09/03/2020 14:37 Notice Type: Patient Choice Letter Notice Delivered To: Patient Relationship to Patient: Inspector Paper Products Name: Delivery Method: HAND - Hand Delivered Lissette Days: Prior Verbal Notification: Recipient Understood Notice: Yes Recipient Signature: Yes Med Rec Note Co-signed by Attending: Coverage Notice Comment: HH ANY Last DP export: 09/04/20 3:00 Patient Name: JOSE NEGRO Page 90383 at 0858 All edits/amendments must be made on the electronic document DICTATION DATE: 09/06/20856 ICER HAND: MANNY 09/06/20856 RPT#: [id number] DC DATE:09/04/20 STATUS: DIS IN [facility] [address] [place] [address] END OF REPORT
== END 2020-09-04 16:20 | disposition home health service (06) | DRG 557 ==
LOC: D.ER 02:19 → OBSVTIME 04:24 → D.MS 04:24
PROVIDERS: Emergency Medicine; ADMIT Family Medicine; ATTEND Family Medicine
DX: M62.82 Rhabdomyolysis (principal); I21.A1 Myocardial infarction type 2; N39.0 Urinary tract infection, site not specified; S22.069A Unspecified fracture of T7-T8 vertebra, initial encounter for closed fracture; S22.079A Unspecified fracture of T9-T10 vertebra, initial encounter for closed fracture; M54.16 Radiculopathy, lumbar region; S00.93XA Contusion of unspecified part of head, initial encounter; S41.111A Laceration without foreign body of right upper arm, initial encounter; W19.XXXA Unspecified fall, initial encounter; E86.0 Dehydration; G40.901 Epilepsy, unspecified, not intractable, with status epilepticus; I73.9 Peripheral vascular disease, unspecified; G62.9 Polyneuropathy, unspecified; Z87.891 Personal history of nicotine dependence